=== PATIENT | male | born 1980 | race Hispanic/Latino ===

== ENCOUNTER 2020-12-19 08:26 | Day surgery (SDC) | payer MEDICARE ==
[2020-12-12 15:26] VITALS: BMI 31.2
[2020-12-19 08:21] LABS: #Basophils 0.1 thou/uL (0.0-0.2); #Eosinphils 0.6 thou/uL (0.0-0.7); #Lymphocytes 3.1 thou/uL (1.20-3.40); #Monocytes 0.9 thou/uL (0.11-0.59); #Neutrophils 7.2 thou/uL (1.40-6.50); %Basophils 0.7 % (0.0-1.0); %Lymphocytes 25.9 % (21.0-51.0); %Monocytes 7.4 % (0.0-10.0); %Neutrophils 61.1 % (42.0-75.0); Hemoglobin 14.6 g/dL (14.0-18.0); Mean Corpuscular HGB CONC 35.3 g/dL (32.0-36.0); Mean Corpuscular Hemoglobin 31.3 pg (27.0-31.0); Mean Corpuscular Volume 88.6 fL (78.0-98.0); Mean Platelet Volume 7.9 fL (7.4-10.4); Platelet Count 295 thou/uL (130-400); RBC Distribution Width 11.8 % (11.5-14.5); Red Blood Cell (RBC) Count 4.65 mill/uL (4.70-6.10); White Blood Cell (WBC) Count 11.8 thou/uL (4.8-10.8)
[2020-12-19 08:24] LABS: Follow-up Chemistry Comp? YES; Follow-up Hematology Comp? YES; Follow-up Result - Chemistry Y; Follow-up Result - Hematology Y
[2020-12-19 08:32] LABS: INR-International Normal Ratio 0.9; Prothrombin Time 11.7 sec (12.0-14.7)
[2020-12-19 08:33] LABS: PTT 29.1 sec (22.9-36.1)
[2020-12-19 09:39] VITALS: BP 161/98; TEMP 98
== END 2020-12-19 11:30 | disposition home or self-care (01) ==
LOC: CT 08:26
PROC: 0TB13ZX Excision of Left Kidney, Percutaneous Approach, Diagnostic (ICD-10-PCS; principal; 2020-12-19)
DX: I12.9 Hypertensive chronic kidney disease with stage 1 through stage 4 chronic kidney disease, or unspecified chronic kidney disease (principal); E11.22 Type 2 diabetes mellitus with diabetic chronic kidney disease; N18.32 Chronic kidney disease, stage 3b; I25.10 Atherosclerotic heart disease of native coronary artery without angina pectoris; Z86.73 Personal history of transient ischemic attack (TIA), and cerebral infarction without residual deficits; Z79.02 Long term (current) use of antithrombotics/antiplatelets; Z79.4 Long term (current) use of insulin; Z79.82 Long term (current) use of aspirin; Z79.899 Other long term (current) drug therapy; Z88.0 Allergy status to penicillin; Z88.1 Allergy status to other antibiotic agents; Z91.013 Allergy to seafood; Z91.041 Radiographic dye allergy status; Z95.5 Presence of coronary angioplasty implant and graft
CPT/HCPCS: 50200; 77012; 85025; 85610; 85730; 88329

== ENCOUNTER 2021-08-16 07:44 | Inpatient (IN) | payer MEDICARE ==
[2021-08-16 08:52] LABS: #Lymphocytes 1.9 thou/uL (1.20-3.40); #Monocytes 0.6 thou/uL (0.11-0.59); #Neutrophils 10.4 thou/uL (1.40-6.50); %Basophils 0.4 % (0.0-1.0); %Eosinophils 0.3 % (0.0-10.0); %Lymphocytes 14.4 % (21.0-51.0); %Monocytes 4.3 % (0.0-10.0); %Neutrophils 80.6 % (42.0-75.0); Mean Corpuscular HGB CONC 34.1 g/dL (32.0-36.0); Mean Corpuscular Hemoglobin 31.4 pg (27.0-31.0); Mean Platelet Volume 7.9 fL (7.4-10.4); Platelet Count 353 thou/uL (130-400); RBC Distribution Width 12.1 % (11.5-14.5); White Blood Cell (WBC) Count 12.9 thou/uL (4.8-10.8)
[2021-08-16] MEDS ORDERED: Pantoprazole 40 MG VIAL ONE (08:54)
[2021-08-16] MEDS ORDERED: Morphine 4 MG/ML VIAL ONE (08:54)
[2021-08-16] MEDS ORDERED: Ondansetron PF 4 MG/2 ML Vial ONE (08:54)
[2021-08-16 08:56] LABS: Bacteria/HPF None Seen HPF (None Seen); Bilirubin Negative (Negative); Blood, Urine 2+ (Negative); Clarity Clear (Clear); Glucose, Urine (Dipstick) Greater than 1000 mg/dL (Negative); Ketone, Urine 10 mg/dL (Negative); Leukocyte Negative Leu/uL (Negative); Nitrite Negative (Negative); Protein, Urine (Dipstick) 600 mg/dL (Neg-Trace); RBC/HPF 0-3 HPF (0-3); Specific Gravity, Urine 1.012 (1.002-1.036); Squamous Epithelial None Seen HPF (0-3); Urobilinogen Normal mg/dL (Less than 2); WBC/HPF 0-3 HPF (0-3); pH, Urine 6.5 (5.0-9.0)
[2021-08-16] MEDS ORDERED: diphenhydrAMINE 50 MG/ML VIAL ONE (09:06)
[2021-08-16] MEDS ORDERED: Metoclopramide HCl 10 MG/2 ML VIAL ONE (09:06)
[2021-08-16 09:12] LABS: ALT (SGPT) 13 U/L (8-55); AST (SGOT) 16 U/L (5-34); Albumin 2.8 g/dL (3.5-5.0); Alkaline Phosphatase 85 U/L (40-110); Anion Gap 15 mmol/L (10-20); BUN (Urea Nitrogen) 20 mg/dL (8.9-20.6); Bilirubin, Total 0.6 mg/dL (0.2-1.2); Calc. Creatinine Clearance 0 mL/min (70-130); Calcium 8.7 mg/dL (7.8-10.44); Carbon Dioxide 22 mmol/L (22-29); Chloride 98 mmol/L (98-107); Globulin 3.3 g/dL (2.4-3.5); Glucose 289 mg/dL (70-105); Lipase 84 U/L (8-78); Potassium 4.1 mmol/L (3.5-5.1); Protein, Total 6.1 g/dL (6.0-8.3); Prothrombin Time 12.8 sec (12.0-14.7); Sodium 131 mmol/L (136-145)
[2021-08-16 09:13] LABS: PTT 34.9 sec (22.9-36.1)
[2021-08-16] MEDS ORDERED: cefTRIAXone\\ROCEPHIN 2 GM VIAL ONE (11:55)
[2021-08-16] MEDS ORDERED: Haloperidol Lactate 5 MG/ML VIAL ONE (12:53)
[2021-08-16] MEDS ORDERED: Ondansetron ODT 4 MG TAB PO PRN (14:20)
[2021-08-16] MEDS ORDERED: Acetaminophen 325 MG TAB PO PRN (14:20)
[2021-08-16] MEDS ORDERED: Ondansetron PF 4 MG/2 ML Vial IVP PRN (14:20)
[2021-08-16] MEDS ORDERED: HumaLOG 300 UNITS/3 ML VIAL SC PRN (14:25)
[2021-08-16] MEDS ORDERED: Dextrose 5% in Water 1,000 ML IV PRN (14:25)
[2021-08-16] MEDS ORDERED: Dextrose 50% Abboject 50 ML SYRINGE SLOW IVP PRN (14:25)
[2021-08-16] MEDS ORDERED: Lorazepam 1 MG TAB PO PRN (14:26)
[2021-08-16] MEDS ORDERED: Sodium Chloride 0.9% 500 ML IV SCH (14:30)
[2021-08-16 16:25] LABS: Hemoglobin A1c 8.5 % (4.0-6.0)
[2021-08-16 16:27] LABS: Troponin I 0.018 ng/mL (< 0.028)
[2021-08-16] MEDS: hydrALAZINE 20 MG/ML VIAL SLOW IVP PRN ×2 (16:33→23:59)
[2021-08-16] MEDS: Sodium Chloride 0.9% 1,000 ML IV SCH (16:37)
[2021-08-16 16:49] VITALS: BMI 28.7
[2021-08-16] MEDS ORDERED: Promethazine HCl 12.5 MG in Sodium Chloride 0.9% 50 ML IVPB PRN (17:04)
[2021-08-16] MEDS: Morphine 4 MG/ML VIAL SLOW IVP PRN ×2 (17:07→21:00)
[2021-08-16 17:17] LABS: Amphetamine Not Detected (NotDetected); Barbiturates Screen Not Detected (NotDetected); Benzodiazepine Screen Not Detected (NotDetected); Cocaine Metabolite Screen Not Detected (NotDetected); Methadone Not Detected (NotDetected); Methamphetamine Not Detected (NotDetected); Opiate Screen Not Detected (NotDetected); Oxycodone Screen Not Detected (NotDetected); Phencyclidine (PCP) Not Detected (NotDetected); THC/Cannabinoid Screen Detected (NotDetected); Tricyclic Screen Not Detected (NotDetected)
[2021-08-16] MEDS: Metoclopramide HCl 10 MG/2 ML VIAL IVP SCH (20:32)
[2021-08-16] MEDS: Pantoprazole 40 MG VIAL IVP SCH (20:33)
[2021-08-16] MEDS ORDERED: Gabapentin 100 MG CAP PO PRN (21:59)
[2021-08-16] MEDS ORDERED: NIFEdipine XL 30 MG TAB PO SCH (22:15)
[2021-08-16] MEDS ORDERED: Propranolol 10 MG TAB PO SCH (22:15)
[2021-08-17 00:11] LABS: SARS-CoV-2 PCR by NAA Not Detected (NotDetected)
[2021-08-17] MEDS: Sodium Chloride 0.9% 1,000 ML IV SCH ×2 (04:38→14:16)
[2021-08-17] MEDS: hydrALAZINE 20 MG/ML VIAL SLOW IVP PRN ×2 (04:39→17:44)
[2021-08-17] MEDS: Morphine 4 MG/ML VIAL SLOW IVP PRN (04:40)
[2021-08-17 06:01] LABS: #Basophils 0.1 thou/uL (0.0-0.2); #Eosinphils 0.1 thou/uL (0.0-0.7); #Lymphocytes 2.5 thou/uL (1.20-3.40); #Monocytes 0.8 thou/uL (0.11-0.59); #Neutrophils 7.7 thou/uL (1.40-6.50); %Basophils 0.7 % (0.0-1.0); %Eosinophils 0.8 % (0.0-10.0); %Lymphocytes 22.5 % (21.0-51.0); %Monocytes 7.4 % (0.0-10.0); %Neutrophils 68.5 % (42.0-75.0); Hemoglobin 15.7 g/dL (14.0-18.0); Mean Corpuscular HGB CONC 34.6 g/dL (32.0-36.0); Mean Corpuscular Hemoglobin 31.8 pg (27.0-31.0); Mean Corpuscular Volume 92.1 fL (78.0-98.0); Mean Platelet Volume 7.5 fL (7.4-10.4); Platelet Count 277 thou/uL (130-400); Red Blood Cell (RBC) Count 4.93 mill/uL (4.70-6.10); White Blood Cell (WBC) Count 11.3 thou/uL (4.8-10.8)
[2021-08-17 06:24] LABS: ALT (SGPT) 9 U/L (8-55); AST (SGOT) 10 U/L (5-34); Albumin 2.4 g/dL (3.5-5.0); Alkaline Phosphatase 68 U/L (40-110); Anion Gap 14 mmol/L (10-20); BUN (Urea Nitrogen) 18 mg/dL (8.9-20.6); Bilirubin, Total 0.5 mg/dL (0.2-1.2); Calc. Creatinine Clearance 52 mL/min (70-130); Calcium 8.2 mg/dL (7.8-10.44); Carbon Dioxide 19 mmol/L (22-29); Chloride 104 mmol/L (98-107); Globulin 2.9 g/dL (2.4-3.5); Glucose 192 mg/dL (70-105); Potassium 3.7 mmol/L (3.5-5.1); Protein, Total 5.3 g/dL (6.0-8.3); Sodium 133 mmol/L (136-145)
[2021-08-17] MEDS: Metoclopramide HCl 10 MG/2 ML VIAL IVP SCH ×3 (06:32→20:48)
[2021-08-17] MEDS: Lorazepam 2 MG/ML VIAL SLOW IVP PRN (06:35)
[2021-08-17] MEDS: Fenofibrate 48 MG TAB PO SCH (07:58)
[2021-08-17] MEDS: Propranolol 10 MG TAB PO SCH (07:59)
[2021-08-17] MEDS: Ezetimibe 10 MG TAB PO SCH (08:00)
[2021-08-17] MEDS: Losartan 25 MG TAB PO SCH (08:00)
[2021-08-17] MEDS: Pantoprazole 40 MG VIAL IVP SCH ×2 (08:00→20:46)
[2021-08-17] MEDS: NIFEdipine XL 30 MG TAB PO SCH (08:00)
[2021-08-17] MEDS: Enoxaparin Sodium 40 MG/0.4 ML SYRINGE SC SCH (12:17)
[2021-08-17] MEDS ORDERED: Lidocaine 1% PF 5 ML VIAL ONE (12:52)
[2021-08-17] MEDS ORDERED: PROPOFOL 200 MG/20 ML VIAL ONE (12:52)
[2021-08-18] MEDS: Sodium Chloride 0.9% 1,000 ML IV SCH (02:35)
[2021-08-18] MEDS: Metoclopramide HCl 10 MG/2 ML VIAL IVP SCH (05:09)
[2021-08-18] MEDS: Lorazepam 2 MG/ML VIAL SLOW IVP PRN (05:24)
[2021-08-18] MEDS: Enoxaparin Sodium 40 MG/0.4 ML SYRINGE SC SCH (08:06)
[2021-08-18] MEDS: NIFEdipine XL 30 MG TAB PO SCH (08:06)
[2021-08-18] MEDS: Losartan 25 MG TAB PO SCH (08:06)
[2021-08-18] MEDS: Ezetimibe 10 MG TAB PO SCH (08:06)
[2021-08-18] MEDS: Pantoprazole 40 MG VIAL IVP SCH (08:07)
[2021-08-18] MEDS: Propranolol 10 MG TAB PO SCH (08:07)
[2021-08-18] MEDS: Fenofibrate 48 MG TAB PO SCH (08:08)
[2021-08-18] MEDS ORDERED: NIFEdipine XL 30 MG TAB PO SCH (09:00)
[2021-08-18 10:27] VITALS: BP 167/91; TEMP 97.7
== END 2021-08-18 10:35 | disposition home or self-care (01) | DRG 74 ==
LOC: ERS 07:44 → T4-B 14:28 → OBSVTOIN 08-18 10:02
PROVIDERS: ADMIT Internal Medicine; ATTEND Internal Medicine
PROC: 0DJ08ZZ Inspection of Upper Intestinal Tract, Via Natural or Artificial Opening Endoscopic (ICD-10-PCS; principal; 2021-08-17)
DX: E11.43 Type 2 diabetes mellitus with diabetic autonomic (poly)neuropathy (principal); N18.4 Chronic kidney disease, stage 4 (severe); E87.1 Hypo-osmolality and hyponatremia; K92.0 Hematemesis; K31.84 Gastroparesis; Z20.822 Contact with and (suspected) exposure to COVID-19; E11.22 Type 2 diabetes mellitus with diabetic chronic kidney disease; E11.42 Type 2 diabetes mellitus with diabetic polyneuropathy; R07.89 Other chest pain; I12.9 Hypertensive chronic kidney disease with stage 1 through stage 4 chronic kidney disease, or unspecified chronic kidney disease; E11.621 Type 2 diabetes mellitus with foot ulcer; L97.529 Non-pressure chronic ulcer of other part of left foot with unspecified severity; L97.519 Non-pressure chronic ulcer of other part of right foot with unspecified severity; I25.10 Atherosclerotic heart disease of native coronary artery without angina pectoris; E86.0 Dehydration; G89.4 Chronic pain syndrome; Z79.82 Long term (current) use of aspirin; Z79.891 Long term (current) use of opiate analgesic; Z79.4 Long term (current) use of insulin; Z89.412 Acquired absence of left great toe; Z86.16 Personal history of COVID-19; Z79.899 Other long term (current) drug therapy; Z91.041 Radiographic dye allergy status; Z88.8 Allergy status to other drugs, medicaments and biological substances; Z88.0 Allergy status to penicillin; Z88.1 Allergy status to other antibiotic agents; Z91.013 Allergy to seafood; Z95.5 Presence of coronary angioplasty implant and graft; Z86.73 Personal history of transient ischemic attack (TIA), and cerebral infarction without residual deficits; I25.2 Old myocardial infarction
CPT/HCPCS: 36415; 36416; 74176; 80053; 80306; 81003; 81015; 82274; 83036; 83605; 83690; 84484; 85025; 85610; 85730; 86850; 86900; 86901; 87040; 87086; 93005; 96365; 96372; 96375; 96376; C9113; G0378; J0360; J0696; J1200; J1630; J1650; J1815; J2060; J2270; J2405; J2704; J2765; J7030; J7050; U0003; U0005

== ENCOUNTER 2021-09-06 08:01 | Outpatient (CLI) | payer MEDICARE | END 2021-09-06 08:02 | disposition home or self-care (01) | LOC: NM 08:01 | PROVIDERS: ATTEND Physician Assistant Medical | DX: R11.2 Nausea with vomiting, unspecified (principal); E11.22 Type 2 diabetes mellitus with diabetic chronic kidney disease; N18.9 Chronic kidney disease, unspecified; F12.20 Cannabis dependence, uncomplicated | CPT/HCPCS: 78264; A9541 ==

== ENCOUNTER 2021-09-20 10:30 | Outpatient (CLI) | payer MEDICARE ==
[2021-09-20 21:02] LABS: SARS-CoV-2 PCR by NAA Not Detected (NotDetected)
== END 2021-09-20 10:31 | disposition home or self-care (01) ==
LOC: LABBT 10:30
PROVIDERS: ATTEND Physician Assistant Medical
DX: R11.2 Nausea with vomiting, unspecified (principal); Z20.822 Contact with and (suspected) exposure to COVID-19
CPT/HCPCS: U0003; U0005

== ENCOUNTER 2022-02-09 07:53 | Inpatient (IN) | payer MEDICARE ==
[2022-02-09] MEDS ORDERED: Dicyclomine 20 MG/2 ML VIAL ONE (08:15)
[2022-02-09] MEDS ORDERED: Famotidine/PF 20 mg/2ml Vial ONE (08:15)
[2022-02-09] MEDS ORDERED: Morphine 4 MG/ML VIAL ONE (08:15)
[2022-02-09 08:29] LABS: #Eosinphils 0.1 thou/uL (0.0-0.7); #Lymphocytes 2.1 thou/uL (1.20-3.40); #Monocytes 0.9 thou/uL (0.11-0.59); #Neutrophils 15.5 thou/uL (1.40-6.50); %Basophils 0.2 % (0.0-1.0); %Eosinophils 0.3 % (0.0-10.0); %Lymphocytes 11.5 % (21.0-51.0); %Monocytes 4.6 % (0.0-10.0); %Neutrophils 83.4 % (42.0-75.0); Hemoglobin 15.5 g/dL (14.0-18.0); Mean Corpuscular HGB CONC 35.9 g/dL (32.0-36.0); Mean Corpuscular Hemoglobin 31.7 pg (27.0-31.0); Mean Corpuscular Volume 88.5 fL (78.0-98.0); Mean Platelet Volume 7.7 fL (7.4-10.4); Platelet Count 344 thou/uL (130-400); RBC Distribution Width 11.9 % (11.5-14.5); Red Blood Cell (RBC) Count 4.88 mill/uL (4.70-6.10); White Blood Cell (WBC) Count 18.6 thou/uL (4.8-10.8)
[2022-02-09] MEDS ORDERED: Piperacillin/Tazobactam 4.5 GM VIAL ONE (08:47)
[2022-02-09 09:05] LABS: ALT (SGPT) 13 U/L (8-55); AST (SGOT) 16 U/L (5-34); Alkaline Phosphatase 99 U/L (40-110); Anion Gap 19 mmol/L (10-20); BUN (Urea Nitrogen) 26 mg/dL (8.9-20.6); Bilirubin, Total 0.7 mg/dL (0.2-1.2); Calc. Creatinine Clearance 0 mL/min (70-130); Calcium 8.6 mg/dL (7.8-10.44); Carbon Dioxide 20 mmol/L (22-29); Chloride 90 mmol/L (98-107); Estimated GFR 20; Globulin 3.4 g/dL (2.4-3.5); Glucose 160 mg/dL (70-105); Lipase 172 U/L (8-78); Potassium 3.2 mmol/L (3.5-5.1); Protein, Total 6.4 g/dL (6.0-8.3); Sodium 126 mmol/L (136-145)
[2022-02-09 09:09] LABS: CKMB 6.2 ng/mL (0-6.6)
[2022-02-09 09:16] LABS: Bacteria/HPF 1+ HPF (None Seen); Bilirubin Negative (Negative); Blood, Urine 1+ (Negative); Clarity Clear (Clear); Glucose, Urine (Dipstick) 200 mg/dL (Negative); Ketone, Urine Trace mg/dL (Negative); Leukocyte Negative Leu/uL (Negative); Nitrite Negative (Negative); Protein, Urine (Dipstick) 600 mg/dL (Neg-Trace); RBC/HPF 0-3 HPF (0-3); Specific Gravity, Urine 1.008 (1.002-1.036); Squamous Epithelial 0-3 HPF (0-3); Urobilinogen Normal mg/dL (Less than 2); WBC/HPF 0-3 HPF (0-3)
[2022-02-09] MEDS ORDERED: Haloperidol Lactate 5 MG/ML VIAL ONE (09:23)
[2022-02-09 09:27] LABS: Magnesium 2.1 mg/dL (1.6-2.6)
[2022-02-09] MEDS ORDERED: Potassium Chloride 20 MEQ TAB ONE (10:08)
[2022-02-09] MEDS ORDERED: Ondansetron ODT 4 MG TAB PO PRN (11:10)
[2022-02-09] MEDS ORDERED: Promethazine HCl 25 MG in Sodium Chloride 0.9% 50 ML IVPB PRN (11:10)
[2022-02-09] MEDS ORDERED: HumaLOG 300 UNITS/3 ML VIAL SC PRN ×2 (11:10)
[2022-02-09] MEDS ORDERED: Dextrose 5% in Water 1,000 ML IV PRN (11:10)
[2022-02-09] MEDS ORDERED: Dextrose 50% Abboject 50 ML SYRINGE SLOW IVP PRN (11:10)
[2022-02-09] MEDS ORDERED: Acetaminophen 325 MG TAB PO PRN (11:10)
[2022-02-09 11:48] LABS: Troponin I 0.026 ng/mL (< 0.028)
[2022-02-09] MEDS ORDERED: Metoclopramide HCl 10 MG/2 ML VIAL IVP SCH (12:00)
[2022-02-09] MEDS: Metoclopramide HCl 10 MG/2 ML VIAL IVP SCH ×2 (12:56→20:37)
[2022-02-09] MEDS: Sodium Chloride 0.9% 1,000 ML IV SCH (12:57)
[2022-02-09] MEDS ORDERED: hydrALAZINE 20 MG/ML VIAL SLOW IVP PRN (13:39)
[2022-02-09] MEDS ORDERED: Labetalol HCl 100 MG/20 ML VIAL SLOW IVP SCH (13:45)
[2022-02-09] MEDS: Labetalol HCl 100 MG/20 ML VIAL SLOW IVP PRN ×2 (13:48→20:37)
[2022-02-09 14:39] LABS: Troponin I 0.027 ng/mL (< 0.028)
[2022-02-09] MEDS: Lorazepam 1 MG TAB PO PRN (22:07)
[2022-02-10] MEDS: Metoclopramide HCl 10 MG/2 ML VIAL IVP SCH ×4 (01:17→19:50)
[2022-02-10] MEDS: Sodium Chloride 0.9% 1,000 ML IV SCH ×3 (04:15→18:30)
[2022-02-10 04:22] LABS: #Eosinphils 0.1 thou/uL (0.0-0.7); #Monocytes 0.8 thou/uL (0.11-0.59); #Neutrophils 6.9 thou/uL (1.40-6.50); %Basophils 0.5 % (0.0-1.0); %Eosinophils 1.1 % (0.0-10.0); %Monocytes 7.9 % (0.0-10.0); %Neutrophils 70.5 % (42.0-75.0); Hemoglobin 13.5 g/dL (14.0-18.0); Mean Corpuscular HGB CONC 35.5 g/dL (32.0-36.0); Mean Corpuscular Hemoglobin 32.2 pg (27.0-31.0); Mean Corpuscular Volume 90.8 fL (78.0-98.0); Mean Platelet Volume 7.7 fL (7.4-10.4); Platelet Count 247 thou/uL (130-400); Red Blood Cell (RBC) Count 4.18 mill/uL (4.70-6.10); White Blood Cell (WBC) Count 9.8 thou/uL (4.8-10.8)
[2022-02-10 04:34] LABS: Anion Gap 12 mmol/L (10-20); BUN (Urea Nitrogen) 24 mg/dL (8.9-20.6); Calc. Creatinine Clearance 36 mL/min (70-130); Calcium 7.9 mg/dL (7.8-10.44); Carbon Dioxide 20 mmol/L (22-29); Chloride 105 mmol/L (98-107); Estimated GFR 21; Glucose 107 mg/dL (70-105); Potassium 3.2 mmol/L (3.5-5.1); Sodium 134 mmol/L (136-145)
[2022-02-10] MEDS ORDERED: Lorazepam 1 MG TAB PO PRN (08:24)
[2022-02-10] MEDS: Potassium Chloride 20 MEQ in Premix Bag 1 BAG IVPB SCH ×2 (08:44→11:49)
[2022-02-10] MEDS: Labetalol HCl 100 MG/20 ML VIAL SLOW IVP PRN (08:45)
[2022-02-10] MEDS ORDERED: Aspirin 81 mg Enteric Coated Tablet PO SCH (09:00)
[2022-02-10] MEDS ORDERED: Ezetimibe 10 MG TAB PO SCH (09:00)
[2022-02-10] MEDS: Lorazepam 1 MG TAB PO PRN ×2 (11:49→19:53)
[2022-02-10] MEDS ORDERED: Losartan 25 MG TAB PO SCH (13:00)
[2022-02-10 14:45] VITALS: BMI 25.3
[2022-02-10 17:58] VITALS: TEMP 97.5
[2022-02-10] MEDS ORDERED: NIFEdipine XL 60 MG TAB PO SCH (18:15)
[2022-02-10 20:51] VITALS: BP 170/92
[2022-02-11] MEDS ORDERED: NIFEdipine XL 60 MG TAB PO SCH (09:00)
[2022-02-11] MEDS ORDERED: Losartan 25 MG TAB PO SCH (09:00)
== END 2022-02-10 20:40 | disposition home or self-care (01) | DRG 74 ==
LOC: ERS 07:53 → 2NO 12:40
PROVIDERS: ADMIT Internal Medicine; ATTEND Internal Medicine
DX: E11.43 Type 2 diabetes mellitus with diabetic autonomic (poly)neuropathy (principal); N18.4 Chronic kidney disease, stage 4 (severe); E87.1 Hypo-osmolality and hyponatremia; Z28.21 Immunization not carried out because of patient refusal; I25.10 Atherosclerotic heart disease of native coronary artery without angina pectoris; I12.9 Hypertensive chronic kidney disease with stage 1 through stage 4 chronic kidney disease, or unspecified chronic kidney disease; N18.30 Chronic kidney disease, stage 3 unspecified; K31.84 Gastroparesis; Z88.8 Allergy status to other drugs, medicaments and biological substances; Z88.3 Allergy status to other anti-infective agents; Z91.041 Radiographic dye allergy status; Z88.0 Allergy status to penicillin; Z91.013 Allergy to seafood; Z79.899 Other long term (current) drug therapy; Z79.82 Long term (current) use of aspirin; Z79.4 Long term (current) use of insulin; Z86.73 Personal history of transient ischemic attack (TIA), and cerebral infarction without residual deficits; Z95.5 Presence of coronary angioplasty implant and graft; Z83.3 Family history of diabetes mellitus; Z86.16 Personal history of COVID-19
CPT/HCPCS: 36415; 36416; 71045; 74176; 76705; 80048; 80053; 81003; 81015; 82553; 83605; 83690; 83735; 84484; 85025; 87040; 93005; 94760; 97139; J0360; J1630; J2270; J2543; J2550; J2765; J3480; J7050; S0028

== ENCOUNTER 2022-03-06 07:40 | Inpatient (IN) | payer MEDICARE ==
[2022-03-06 08:03] LABS: #Basophils 0.1 thou/uL (0.0-0.2); #Eosinphils 0.2 thou/uL (0.0-0.7); #Lymphocytes 1.8 thou/uL (1.20-3.40); #Monocytes 0.9 thou/uL (0.11-0.59); #Neutrophils 12.1 thou/uL (1.40-6.50); %Basophils 0.4 % (0.0-1.0); %Eosinophils 1.2 % (0.0-10.0); %Monocytes 5.9 % (0.0-10.0); %Neutrophils 80.4 % (42.0-75.0); Hemoglobin 14.3 g/dL (14.0-18.0); Mean Corpuscular HGB CONC 34.6 g/dL (32.0-36.0); Mean Corpuscular Hemoglobin 32.1 pg (27.0-31.0); Mean Platelet Volume 6.9 fL (7.4-10.4); Platelet Count 309 thou/uL (130-400); RBC Distribution Width 11.9 % (11.5-14.5); Red Blood Cell (RBC) Count 4.46 mill/uL (4.70-6.10); White Blood Cell (WBC) Count 15.1 thou/uL (4.8-10.8)
[2022-03-06 08:24] LABS: ALT (SGPT) 12 U/L (8-55); AST (SGOT) 11 U/L (5-34); Albumin 2.7 g/dL (3.5-5.0); Alkaline Phosphatase 102 U/L (40-110); Anion Gap 15 mmol/L (10-20); BUN (Urea Nitrogen) 34 mg/dL (8.9-20.6); Bilirubin, Total 0.3 mg/dL (0.2-1.2); Calc. Creatinine Clearance 0 mL/min (70-130); Calcium 7.8 mg/dL (7.8-10.44); Carbon Dioxide 18 mmol/L (22-29); Chloride 106 mmol/L (98-107); Estimated GFR 17; Globulin 2.4 g/dL (2.4-3.5); Glucose 140 mg/dL (70-105); Lipase 36 U/L (8-78); Protein, Total 5.1 g/dL (6.0-8.3); Sodium 135 mmol/L (136-145)
[2022-03-06] MEDS ORDERED: Haloperidol Lactate 5 MG/ML VIAL ONE (08:30)
[2022-03-06] MEDS ORDERED: Fentanyl 100 MCG/2 ML VIAL ONE (08:52)
[2022-03-06 09:27] LABS: Bacteria/HPF None Seen HPF (None Seen); Bilirubin Negative (Negative); Blood, Urine 1+ (Negative); Clarity Clear (Clear); Glucose, Urine (Dipstick) 150 mg/dL (Negative); Ketone, Urine Negative (Negative); Leukocyte Negative Leu/uL (Negative); Nitrite Negative (Negative); Protein, Urine (Dipstick) 600 mg/dL (Neg-Trace); RBC/HPF 0-3 HPF (0-3); Specific Gravity, Urine 1.009 (1.002-1.036); Squamous Epithelial 0-3 HPF (0-3); Urobilinogen Normal mg/dL (Less than 2); WBC/HPF 0-3 HPF (0-3); pH, Urine 6.5 (5.0-9.0)
[2022-03-06 11:09] LABS: Amphetamine Not Detected (NotDetected); Barbiturates Screen Not Detected (NotDetected); Benzodiazepine Screen Not Detected (NotDetected); Cocaine Metabolite Screen Not Detected (NotDetected); Methadone Not Detected (NotDetected); Methamphetamine Not Detected (NotDetected); Opiate Screen Not Detected (NotDetected); Oxycodone Screen Not Detected (NotDetected); Phencyclidine (PCP) Not Detected (NotDetected); THC/Cannabinoid Screen Detected (NotDetected); Tricyclic Screen Not Detected (NotDetected)
[2022-03-06] MEDS ORDERED: Lorazepam 2 MG/ML VIAL ONE (11:29)
[2022-03-06 11:50] LABS: SARS-CoV-2 NAA Rapid Test Not Detected (NotDetected)
[2022-03-06] MEDS ORDERED: Acetaminophen 325 MG TAB PO PRN (12:51)
[2022-03-06] MEDS ORDERED: hydrALAZINE 20 MG/ML VIAL SLOW IVP PRN (12:51)
[2022-03-06] MEDS ORDERED: Metoclopramide HCl 10 MG/2 ML VIAL IVP PRN (12:51)
[2022-03-06] MEDS ORDERED: cloNIDine 0.1 MG TAB ONE (13:25)
[2022-03-06] MEDS ORDERED: Furosemide 40 MG/4 ML VIAL ONE (13:26)
[2022-03-06] MEDS ORDERED: cloNIDine 0.2 MG TAB PO SCH (13:30)
[2022-03-06 14:20] VITALS: BMI 23.5
[2022-03-06 14:35] LABS: Hemoglobin A1c 5.4 % (4.0-6.0)
[2022-03-06] MEDS ORDERED: Ezetimibe 10 MG TAB PO SCH (15:00)
[2022-03-06] MEDS ORDERED: NIFEdipine XL 60 MG TAB PO SCH (15:00)
[2022-03-06] MEDS: Lorazepam 1 MG TAB PO SCH (18:46)
[2022-03-06] MEDS ORDERED: traZODone HCl 50 MG TAB PO SCH (21:00)
[2022-03-06] MEDS: Heparin 5,000 UNITS/ML VIAL SC SCH (21:27)
[2022-03-07 05:12] LABS: Troponin I 0.018 ng/mL (< 0.028)
[2022-03-07 05:19] LABS: #Eosinphils 0.1 thou/uL (0.0-0.7); #Lymphocytes 1.1 thou/uL (1.20-3.40); #Monocytes 0.5 thou/uL (0.11-0.59); #Neutrophils 5.5 thou/uL (1.40-6.50); %Basophils 0.4 % (0.0-1.0); %Eosinophils 1.4 % (0.0-10.0); %Lymphocytes 15.4 % (21.0-51.0); %Monocytes 7.4 % (0.0-10.0); %Neutrophils 75.5 % (42.0-75.0); Anion Gap 11 mmol/L (10-20); BUN (Urea Nitrogen) 30 mg/dL (8.9-20.6); Calc. Creatinine Clearance 30 mL/min (70-130); Calcium 8.2 mg/dL (7.8-10.44); Carbon Dioxide 21 mmol/L (22-29); Chloride 106 mmol/L (98-107); Estimated GFR 19; Glucose 112 mg/dL (70-105); Hemoglobin 13.4 g/dL (14.0-18.0); Mean Corpuscular HGB CONC 33.9 g/dL (32.0-36.0); Mean Corpuscular Hemoglobin 31.5 pg (27.0-31.0); Mean Corpuscular Volume 92.9 fL (78.0-98.0); Mean Platelet Volume 7.3 fL (7.4-10.4); Platelet Count 238 thou/uL (130-400); Potassium 3.7 mmol/L (3.5-5.1); RBC Distribution Width 11.9 % (11.5-14.5); Red Blood Cell (RBC) Count 4.27 mill/uL (4.70-6.10); Sodium 134 mmol/L (136-145); White Blood Cell (WBC) Count 7.2 thou/uL (4.8-10.8)
[2022-03-07] MEDS ORDERED: Ezetimibe 10 MG TAB PO SCH (09:00)
[2022-03-07] MEDS ORDERED: NIFEdipine XL 90 MG TAB PO SCH (09:00)
[2022-03-07] MEDS ORDERED: Prevnar 13-Val Conj/PF 0.5 ML SYRINGE IM ONE (09:00)
[2022-03-07] MEDS ORDERED: NIFEdipine XL 60 MG TAB PO SCH (09:00)
[2022-03-07] MEDS: Heparin 5,000 UNITS/ML VIAL SC SCH (12:04)
[2022-03-07 12:10] VITALS: TEMP 98.1
[2022-03-07 13:13] VITALS: BP 150/88
[2022-03-07] MEDS: Lorazepam 1 MG TAB PO SCH (13:36)
[2022-03-07] MEDS ORDERED: Non-Formulary Item 1 EACH (Losartan Potassium [Losartan Potassium] 100 MG Tablet) PO SCH (13:39)
[2022-03-07] MEDS ORDERED: DESVENLAFAXINE SUCCINATE 50 MG PO SCH (13:39)
[2022-03-07] MEDS ORDERED: Non-Formulary Item 1 EACH (Trazodone Hcl [Trazodone Hcl] 100 MG Tablet) PO SCH (21:00)
[2022-03-07] MEDS ORDERED: traZODone HCl 50 MG TAB PO SCH (21:00)
[2022-03-08] MEDS ORDERED: Venlafaxine HCl XR 75 MG CAP PO SCH (09:00)
[2022-03-08] MEDS ORDERED: Aspirin 81 mg Enteric Coated Tablet PO SCH (09:00)
[2022-03-08] MEDS ORDERED: Lorazepam 1 MG TAB PO SCH (09:00)
[2022-03-08] MEDS ORDERED: Losartan 25 MG TAB PO SCH (09:00)
[2022-03-08] MEDS ORDERED: Ezetimibe 10 MG TAB PO SCH (09:00)
[2022-03-08] MEDS ORDERED: Ergocalciferol 1.25 MG(50,000 UNITS) CAP PO SCH (09:00)
[2022-03-14] MEDS ORDERED: Ergocalciferol 1.25 MG(50,000 UNITS) CAP PO SCH (09:00)
== END 2022-03-07 15:14 | disposition home or self-care (01) | DRG 683 ==
LOC: SUATTDRO 07:40 → ERS 07:40 → 2SW 12:03 → OBSVTOIN 03-07 12:36
PROVIDERS: ADMIT Internal Medicine; ATTEND Internal Medicine
DX: N17.9 Acute kidney failure, unspecified (principal); E87.2 Acidosis; Z20.822 Contact with and (suspected) exposure to COVID-19; I25.10 Atherosclerotic heart disease of native coronary artery without angina pectoris; I12.9 Hypertensive chronic kidney disease with stage 1 through stage 4 chronic kidney disease, or unspecified chronic kidney disease; I16.0 Hypertensive urgency; F41.9 Anxiety disorder, unspecified; F32.A Depression, unspecified; D63.1 Anemia in chronic kidney disease; F43.10 Post-traumatic stress disorder, unspecified; N18.4 Chronic kidney disease, stage 4 (severe); E11.22 Type 2 diabetes mellitus with diabetic chronic kidney disease; Z28.21 Immunization not carried out because of patient refusal; Z95.5 Presence of coronary angioplasty implant and graft; Z86.73 Personal history of transient ischemic attack (TIA), and cerebral infarction without residual deficits; Z88.8 Allergy status to other drugs, medicaments and biological substances; Z88.1 Allergy status to other antibiotic agents; Z91.041 Radiographic dye allergy status; Z88.0 Allergy status to penicillin; Z91.013 Allergy to seafood; Z79.899 Other long term (current) drug therapy; Z79.82 Long term (current) use of aspirin; Z89.422 Acquired absence of other left toe(s); Z95.1 Presence of aortocoronary bypass graft
CPT/HCPCS: 36415; 71045; 76705; 78452; 80048; 80053; 80306; 81003; 81015; 83036; 83690; 84484; 85025; 93005; 93017; 93970; 94760; 96374; 96375; A9500; J1630; J1644; J1940; J2060; J2765; J3010; U0002

== ENCOUNTER 2023-06-20 16:04 | Inpatient (IN) | payer MEDICARE ==
[2023-06-20 16:40] LABS: #Eosinphils 0.1 thou/uL (0.0-0.7); #Neutrophils 7.5 thou/uL (1.40-6.50); %Basophils 0.3 % (0.0-1.0); %Eosinophils 1.2 % (0.0-10.0); %Lymphocytes 17.8 % (21.0-51.0); %Monocytes 9.2 % (0.0-10.0); Hematocrit 41.1 % (42.0-52.0); Hemoglobin 15.4 g/dL (14.0-18.0); Mean Corpuscular HGB CONC 37.5 g/dL (32.0-36.0); Mean Corpuscular Volume 82.9 fl (78.0-98.0); Mean Platelet Volume 8.7 fL (7.4-10.4); Platelet Count 334 10x3/uL (130-400); RBC Distribution Width 12.5 % (11.5-14.5); Red Blood Cell (RBC) Count 4.96 mill/uL (4.70-6.10); White Blood Cell (WBC) Count 10.5 10x3/uL (4.8-10.8)
[2023-06-20 17:02] LABS: ALT (SGPT) 17 U/L (8-55); AST (SGOT) 16 U/L (5-34); Albumin 3.9 g/dL (3.5-5.0); Alkaline Phosphatase 84 U/L (40-110); Anion Gap 25 mmol/L (10-20); BUN (Urea Nitrogen) 66 mg/dL (8.9-20.6); Bilirubin, Total 0.8 mg/dL (0.2-1.2); Calc. Creatinine Clearance 0 mL/min (70-130); Calcium 8.9 mg/dL (7.8-10.44); Carbon Dioxide 23 mmol/L (22-29); Chloride 76 mmol/L (98-107); Estimated GFR 4; Globulin 3.5 g/dL (2.4-3.5); Glucose 96 mg/dL (70-105); Protein, Total 7.4 g/dL (6.0-8.3); Sodium 122 mmol/L (136-145)
[2023-06-20 17:05] LABS: Troponin I 0.071 ng/mL (< 0.028)
[2023-06-20] MEDS ORDERED: HYDROcodone/Acetaminophen 10/325 mg Tablet ONE (17:23)
[2023-06-20 17:25] LABS: Potassium 2.4 mmol/L (3.5-5.1)
[2023-06-20] MEDS ORDERED: Potassium Chloride 20 MEQ TAB ONE (18:18)
[2023-06-20] MEDS ORDERED: Acetaminophen 325 MG TAB PO PRN (18:25)
[2023-06-20] MEDS ORDERED: Ondansetron PF 4 MG/2 ML Vial IVP PRN (18:25)
[2023-06-20] MEDS ORDERED: Ondansetron ODT 4 MG TAB PO PRN (18:25)
[2023-06-20] MEDS ORDERED: Acetaminophen 650 MG Suppository PR PRN (18:25)
[2023-06-20] MEDS ORDERED: Sodium Chloride 0.9% 1,000 ML IV SCH (18:45)
[2023-06-20] MEDS ORDERED: Lidocaine 4% Patch TD SCH (20:00)
[2023-06-20] MEDS ORDERED: [UNRECOGNIZED DRUG - REMARK] PO PRN (20:42)
[2023-06-20] MEDS ORDERED: Promethazine HCl 12.5 MG in Sodium Chloride 0.9% 50 ML IVPB PRN (20:43)
[2023-06-20] MEDS ORDERED: Promethazine 25 MG TAB ONE (21:02)
[2023-06-20] MEDS: Promethazine 25 MG TAB PO PRN (21:07)
[2023-06-20 21:36] LABS: Magnesium 2.2 mg/dL (1.6-2.6)
[2023-06-20 21:38] LABS: Lactic Acid 0.5 mmol/L (0.5-2.2); Troponin I 0.079 ng/mL (< 0.028)
[2023-06-20] MEDS ORDERED: Metoclopramide HCl 10 MG (2 mL) VIAL IVP PRN (22:29)
[2023-06-20] MEDS ORDERED: Metoclopramide HCl 10 MG (2 mL) VIAL IVP SCH (22:30)
[2023-06-20] MEDS ORDERED: diphenhydrAMINE 50 MG/ML VIAL IVP PRN (22:30)
[2023-06-20] MEDS ORDERED: Pantoprazole 40 MG VIAL IVP SCH (22:30)
[2023-06-20] MEDS ORDERED: RENALLY IVPB PRN (22:32)
[2023-06-20] MEDS ORDERED: Pantoprazole 40 MG VIAL ONE (22:58)
[2023-06-20] MEDS ORDERED: diphenhydrAMINE 50 MG/ML VIAL ONE (22:58)
[2023-06-20] MEDS ORDERED: Metoclopramide HCl 10 MG (2 mL) VIAL ONE (22:58)
[2023-06-20] MEDS ORDERED: Potassium Chloride 20 MEQ (100 mL) BAG ONE (22:59)
[2023-06-20] MEDS: diphenhydrAMINE 50 MG/ML VIAL IVP SCH ×2 (23:03→23:05)
[2023-06-20] MEDS ORDERED: Capsaicin 0.025% Cream 60 gm Tube TOP SCH (23:15)
[2023-06-20] MEDS: Potassium Chloride 20 MEQ in Premix 1 BAG IVPB SCH (23:16)
[2023-06-20] MEDS ORDERED: Potassium Chloride 20 MEQ TAB PO SCH (23:30)
[2023-06-21] MEDS ORDERED: Potassium Chloride 20 MEQ (100 mL) BAG ONE (01:31)
[2023-06-21] MEDS: Potassium Chloride 20 MEQ in Premix 1 BAG IVPB SCH (01:36)
[2023-06-21 04:33] LABS: #Eosinphils 0.2 thou/uL (0.0-0.7); #Neutrophils 4.9 thou/uL (1.40-6.50); %Basophils 0.5 % (0.0-1.0); %Eosinophils 2.4 % (0.0-10.0); %Lymphocytes 26.7 % (21.0-51.0); %Monocytes 11.8 % (0.0-10.0); %Neutrophils 58.4 % (42.0-75.0); Hematocrit 33.8 % (42.0-52.0); Hemoglobin 12.7 g/dL (14.0-18.0); Mean Corpuscular HGB CONC 37.6 g/dL (32.0-36.0); Mean Corpuscular Hemoglobin 31.3 pg (27.0-31.0); Mean Corpuscular Volume 83.3 fl (78.0-98.0); Mean Platelet Volume 8.7 fL (7.4-10.4); RBC Distribution Width 12.5 % (11.5-14.5); Red Blood Cell (RBC) Count 4.06 mill/uL (4.70-6.10); White Blood Cell (WBC) Count 8.5 10x3/uL (4.8-10.8)
[2023-06-21 05:04] LABS: Critical Call Chemistry NUR.FM15@0504; Phosphorus 10.3 mg/dL (2.3-4.7)
[2023-06-21 05:05] LABS: Anion Gap 21 mmol/L (10-20); BUN (Urea Nitrogen) 75 mg/dL (8.9-20.6); Calc. Creatinine Clearance 0 mL/min (70-130); Calcium 8.1 mg/dL (7.8-10.44); Carbon Dioxide 23 mmol/L (22-29); Chloride 79 mmol/L (98-107); Estimated GFR 4; Glucose 77 mg/dL (70-105); Magnesium 2.2 mg/dL (1.6-2.6); Sodium 120 mmol/L (136-145)
[2023-06-21] MEDS ORDERED: diphenhydrAMINE 50 MG/ML VIAL ONE (05:23)
[2023-06-21] MEDS ORDERED: Metoclopramide HCl 10 MG (2 mL) VIAL ONE (05:23)
[2023-06-21] MEDS: Metoclopramide HCl 10 MG (2 mL) VIAL IVP PRN (05:27)
[2023-06-21] MEDS ORDERED: Potassium Bicarbonate/Cit Ac 20 MEQ TAB PO SCH (05:30)
[2023-06-21 05:31] LABS: Platelet Count 287 10x3/uL (130-400)
[2023-06-21] MEDS ORDERED: Potassium Bicarbonate/Cit Ac 20 MEQ TAB ONE (06:41)
[2023-06-21] MEDS ORDERED: Pantoprazole 40 MG VIAL ONE (08:45)
[2023-06-21] MEDS: Venlafaxine XR 37.5 MG CAP PO SCH (10:30)
[2023-06-21] MEDS ORDERED: HYDROcodone/Acetaminophen 5/325 mg Tablet ONE (10:38)
[2023-06-21] MEDS: HYDROcodone/Acetaminophen 5/325 mg Tablet PO PRN (10:40)
[2023-06-21] MEDS ORDERED: Potassium Chloride 20 MEQ in Premix 1 BAG IVPB SCH (11:00)
[2023-06-21] MEDS: Transdermal Patch Removal TOP SCH (11:15)
[2023-06-21] MEDS: Capsaicin 0.025% Cream 60 gm Tube TOP SCH ×2 (11:15→22:18)
[2023-06-21 13:28] LABS: Anion Gap 22 mmol/L (10-20); BUN (Urea Nitrogen) 79 mg/dL (8.9-20.6); Calc. Creatinine Clearance 0 mL/min (70-130); Calcium 8.3 mg/dL (7.8-10.44); Carbon Dioxide 22 mmol/L (22-29); Chloride 81 mmol/L (98-107); Estimated GFR 4; Glucose 79 mg/dL (70-105); Potassium 3.1 mmol/L (3.5-5.1); Sodium 122 mmol/L (136-145)
[2023-06-21 19:45] VITALS: BMI 20.3
[2023-06-21] MEDS: Lidocaine 4% Patch TD SCH ×2 (21:19→22:18)
[2023-06-21] MEDS: Sodium Chloride 0.9% 1,000 ML IV SCH (21:19)
[2023-06-21] MEDS: Carvedilol 6.25 MG TAB PO SCH (21:19)
[2023-06-21] MEDS: hydrALAZINE 25 MG TAB PO SCH (21:20)
[2023-06-21] MEDS: Morphine 4 MG/ML VIAL SLOW IVP PRN (21:20)
[2023-06-21] MEDS: Promethazine 25 MG TAB PO SCH (21:20)
[2023-06-21] MEDS: Lorazepam 1 MG TAB PO SCH (21:20)
[2023-06-21] MEDS: Potassium Chloride 20 MEQ TAB PO SCH (22:18)
[2023-06-22] MEDS: hydrALAZINE 20 MG/ML VIAL SLOW IVP PRN ×3 (03:40→16:24)
[2023-06-22] MEDS: Morphine 4 MG/ML VIAL SLOW IVP PRN ×5 (03:44→23:23)
[2023-06-22] MEDS: Metoclopramide HCl 10 MG (2 mL) VIAL IVP PRN (03:45)
[2023-06-22] MEDS: Promethazine 25 MG TAB PO SCH ×2 (03:50→21:38)
[2023-06-22 05:16] LABS: Troponin I 0.065 ng/mL (< 0.028)
[2023-06-22] MEDS: Sodium Chloride 0.9% 1,000 ML IV SCH ×2 (07:43→16:25)
[2023-06-22] MEDS: Ezetimibe 10 MG TAB PO SCH (08:27)
[2023-06-22] MEDS: Folic Acid/Vit B Comp W-C PO SCH (08:27)
[2023-06-22] MEDS: Venlafaxine XR 37.5 MG CAP PO SCH (08:27)
[2023-06-22] MEDS: Cyclobenzaprine 10 MG TAB PO PRN (08:28)
[2023-06-22] MEDS: Aspirin 81 mg Enteric Coated Tablet PO SCH (08:28)
[2023-06-22] MEDS: Carvedilol 6.25 MG TAB PO SCH ×2 (08:30→21:38)
[2023-06-22] MEDS: NIFEdipine XL 90 MG ER.TAB PO SCH (08:30)
[2023-06-22] MEDS: hydrALAZINE 25 MG TAB PO SCH ×2 (08:30→21:38)
[2023-06-22] MEDS: Transdermal Patch Removal TOP SCH (08:31)
[2023-06-22] MEDS: Capsaicin 0.025% Cream 60 gm Tube TOP SCH ×3 (08:31→23:21)
[2023-06-22 11:59] LABS: Anion Gap 21 mmol/L (10-20); BUN (Urea Nitrogen) 68 mg/dL (8.9-20.6); Calc. Creatinine Clearance 7 mL/min (70-130); Carbon Dioxide 22 mmol/L (22-29); Chloride 86 mmol/L (98-107); Estimated GFR 4; Glucose 103 mg/dL (70-105); Potassium 3.1 mmol/L (3.5-5.1); Sodium 126 mmol/L (136-145)
[2023-06-22] MEDS: Promethazine 25 MG TAB PO PRN (12:27)
[2023-06-22] MEDS: Potassium Chloride 20 MEQ TAB PO SCH ×2 (16:25→21:39)
[2023-06-22] MEDS ORDERED: cloNIDine 0.1mg/24 Hour PATCH TD SCH (18:00)
[2023-06-22] MEDS: HYDROcodone/Acetaminophen 5/325 mg Tablet PO PRN (19:39)
[2023-06-22] MEDS: Lorazepam 1 MG TAB PO SCH (21:38)
[2023-06-22] MEDS: Senokot S 8.6-50 MG TAB PO SCH (21:39)
[2023-06-22] MEDS: Lidocaine 4% Patch TD SCH (23:21)
[2023-06-23] MEDS: HYDROcodone/Acetaminophen 5/325 mg Tablet PO PRN ×4 (01:37→23:22)
[2023-06-23] MEDS: Cyclobenzaprine 10 MG TAB PO PRN (01:38)
[2023-06-23] MEDS: hydrALAZINE 20 MG/ML VIAL SLOW IVP PRN (04:34)
[2023-06-23] MEDS: Sodium Chloride 0.9% 1,000 ML IV SCH (04:53)
[2023-06-23] MEDS: Morphine 4 MG/ML VIAL SLOW IVP PRN ×2 (06:44→20:29)
[2023-06-23] MEDS: NIFEdipine XL 90 MG ER.TAB PO SCH (06:44)
[2023-06-23 06:51] LABS: Anion Gap 16 mmol/L (10-20); BUN (Urea Nitrogen) 64 mg/dL (8.9-20.6); Calc. Creatinine Clearance 8 mL/min (70-130); Calcium 7.9 mg/dL (7.8-10.44); Carbon Dioxide 22 mmol/L (22-29); Chloride 88 mmol/L (98-107); Estimated GFR 5; Glucose 94 mg/dL (70-105); Magnesium 3.8 mg/dL (1.6-2.6); Potassium 3.3 mmol/L (3.5-5.1); Sodium 123 mmol/L (136-145)
[2023-06-23 06:54] LABS: Phosphorus 6.8 mg/dL (2.3-4.7)
[2023-06-23] MEDS: Carvedilol 6.25 MG TAB PO SCH ×2 (08:35→20:28)
[2023-06-23] MEDS: Venlafaxine XR 37.5 MG CAP PO SCH (08:36)
[2023-06-23] MEDS: hydrALAZINE 25 MG TAB PO SCH ×4 (08:36→21:52)
[2023-06-23] MEDS: Ezetimibe 10 MG TAB PO SCH (08:36)
[2023-06-23] MEDS: Aspirin 81 mg Enteric Coated Tablet PO SCH (08:36)
[2023-06-23] MEDS: Promethazine 25 MG TAB PO SCH ×5 (08:36→23:21)
[2023-06-23] MEDS: Folic Acid/Vit B Comp W-C PO SCH (08:36)
[2023-06-23] MEDS: Senokot S 8.6-50 MG TAB PO SCH ×2 (08:37→20:29)
[2023-06-23] MEDS: Transdermal Patch Removal TOP SCH (12:28)
[2023-06-23] MEDS: Capsaicin 0.025% Cream 60 gm Tube TOP SCH ×3 (12:28→20:28)
[2023-06-23] MEDS ORDERED: Potassium Chloride 20 MEQ TAB PO SCH (17:00)
[2023-06-23] MEDS: Lidocaine 4% Patch TD SCH (20:28)
[2023-06-23] MEDS ORDERED: traZODone HCl 50 MG TAB PO SCH (21:00)
[2023-06-23] MEDS: Lorazepam 1 MG TAB PO SCH (21:53)
[2023-06-24 06:26] LABS: Anion Gap 14 mmol/L (10-20); BUN (Urea Nitrogen) 57 mg/dL (8.9-20.6); Calc. Creatinine Clearance 9 mL/min (70-130); Calcium 7.7 mg/dL (7.8-10.44); Carbon Dioxide 24 mmol/L (22-29); Chloride 90 mmol/L (98-107); Estimated GFR 5; Glucose 102 mg/dL (70-105); Potassium 3.8 mmol/L (3.5-5.1); Sodium 124 mmol/L (136-145)
[2023-06-24] MEDS: Promethazine 25 MG TAB PO SCH ×3 (07:51→17:23)
[2023-06-24] MEDS: NIFEdipine XL 90 MG ER.TAB PO SCH (08:50)
[2023-06-24] MEDS: Ezetimibe 10 MG TAB PO SCH (08:51)
[2023-06-24] MEDS: Folic Acid/Vit B Comp W-C PO SCH (08:51)
[2023-06-24] MEDS: Aspirin 81 mg Enteric Coated Tablet PO SCH (08:51)
[2023-06-24] MEDS: Senokot S 8.6-50 MG TAB PO SCH ×2 (08:51→21:11)
[2023-06-24] MEDS: Carvedilol 6.25 MG TAB PO SCH ×2 (08:51→21:11)
[2023-06-24] MEDS: hydrALAZINE 25 MG TAB PO SCH ×4 (08:51→21:10)
[2023-06-24] MEDS: Venlafaxine XR 37.5 MG CAP PO SCH ×2 (08:51→21:11)
[2023-06-24] MEDS: Transdermal Patch Removal TOP SCH (08:52)
[2023-06-24] MEDS: Capsaicin 0.025% Cream 60 gm Tube TOP SCH ×3 (08:52→21:14)
[2023-06-24] MEDS: Morphine 4 MG/ML VIAL SLOW IVP PRN ×3 (08:58→21:32)
[2023-06-24] MEDS ORDERED: Promethazine 25 MG TAB PO SCH (09:15)
[2023-06-24] MEDS: HYDROcodone/Acetaminophen 5/325 mg Tablet PO PRN ×2 (12:20→16:17)
[2023-06-24] MEDS: Cyclobenzaprine 10 MG TAB PO PRN (17:27)
[2023-06-24] MEDS: Lidocaine 4% Patch TD SCH (21:10)
[2023-06-24] MEDS: Lorazepam 1 MG TAB PO SCH (21:11)
[2023-06-25] MEDS: Promethazine 25 MG TAB PO SCH ×3 (00:34→11:40)
[2023-06-25] MEDS: HYDROcodone/Acetaminophen 5/325 mg Tablet PO PRN ×3 (00:37→11:40)
[2023-06-25] MEDS: Morphine 4 MG/ML VIAL SLOW IVP PRN ×2 (01:58→08:49)
[2023-06-25] MEDS: Cyclobenzaprine 10 MG TAB PO PRN (02:28)
[2023-06-25 05:01] VITALS: TEMP 98.2
[2023-06-25 07:47] LABS: Anion Gap 14 mmol/L (10-20); BUN (Urea Nitrogen) 56 mg/dL (8.9-20.6); Calc. Creatinine Clearance 9 mL/min (70-130); Calcium 7.2 mg/dL (7.8-10.44); Carbon Dioxide 24 mmol/L (22-29); Chloride 90 mmol/L (98-107); Estimated GFR 5; Glucose 78 mg/dL (70-105); Potassium 3.6 mmol/L (3.5-5.1); Sodium 124 mmol/L (136-145)
[2023-06-25] MEDS: Senokot S 8.6-50 MG TAB PO SCH (08:47)
[2023-06-25] MEDS: Carvedilol 6.25 MG TAB PO SCH (08:47)
[2023-06-25] MEDS: hydrALAZINE 25 MG TAB PO SCH ×2 (08:47→11:40)
[2023-06-25] MEDS: Venlafaxine XR 37.5 MG CAP PO SCH (08:48)
[2023-06-25] MEDS: NIFEdipine XL 90 MG ER.TAB PO SCH (08:48)
[2023-06-25] MEDS: Ezetimibe 10 MG TAB PO SCH (08:48)
[2023-06-25] MEDS: Folic Acid/Vit B Comp W-C PO SCH (08:49)
[2023-06-25] MEDS: Aspirin 81 mg Enteric Coated Tablet PO SCH (08:49)
[2023-06-25] MEDS: Transdermal Patch Removal TOP SCH ×2 (08:54→08:56)
[2023-06-25] MEDS: Capsaicin 0.025% Cream 60 gm Tube TOP SCH (08:56)
[2023-06-25 11:41] VITALS: BP 154/84
== END 2023-06-25 14:19 | disposition home health service (06) | DRG 640 ==
LOC: ERS 16:04 → ERHOLD 19:28 → 2NO 06-21 12:36 → T4-B 06-24 14:17
PROVIDERS: ADMIT Internal Medicine; ATTEND Emergency Medicine
DX: E87.6 Hypokalemia (principal); N18.6 End stage renal disease; I12.0 Hypertensive chronic kidney disease with stage 5 chronic kidney disease or end stage renal disease; R11.2 Nausea with vomiting, unspecified; E87.1 Hypo-osmolality and hyponatremia; F12.90 Cannabis use, unspecified, uncomplicated; I25.10 Atherosclerotic heart disease of native coronary artery without angina pectoris; Z99.2 Dependence on renal dialysis; M54.50 Low back pain, unspecified; F41.9 Anxiety disorder, unspecified; F32.A Depression, unspecified; Z88.8 Allergy status to other drugs, medicaments and biological substances; Z91.041 Radiographic dye allergy status; Z88.0 Allergy status to penicillin; Z88.1 Allergy status to other antibiotic agents; Z79.82 Long term (current) use of aspirin; Z79.899 Other long term (current) drug therapy; E11.40 Type 2 diabetes mellitus with diabetic neuropathy, unspecified; Z98.890 Other specified postprocedural states; Z83.3 Family history of diabetes mellitus; I25.2 Old myocardial infarction; K59.00 Constipation, unspecified; E83.39 Other disorders of phosphorus metabolism; D63.1 Anemia in chronic kidney disease
CPT/HCPCS: 36415; 36416; 71045; 72146; 72148; 80048; 80053; 83605; 83735; 83880; 84100; 84484; 85025; 90945; 93005; 97139; C9113; G0257; J0360; J1200; J2270; J2765; J3480; J7050; Q0169

== ENCOUNTER 2023-09-02 10:30 | Inpatient (IN) | payer MEDICARE ==
[2023-09-02 11:15] LABS: #Eosinphils 0.3 thou/uL (0.0-0.7); #Monocytes 0.9 thou/uL (0.11-0.59); #Neutrophils 14.9 thou/uL (1.40-6.50); %Basophils 0.2 % (0.0-1.0); %Eosinophils 1.6 % (0.0-10.0); %Lymphocytes 8.3 % (21.0-51.0); %Monocytes 5.1 % (0.0-10.0); %Neutrophils 82.9 % (42.0-75.0); Hematocrit 22.7 % (42.0-52.0); Hemoglobin 8.1 g/dL (14.0-18.0); Mean Corpuscular HGB CONC 35.7 g/dL (32.0-36.0); Mean Corpuscular Hemoglobin 32.9 pg (27.0-31.0); Mean Corpuscular Volume 92.3 fl (78.0-98.0); Mean Platelet Volume 8.5 fL (7.4-10.4); Platelet Count 294 10x3/uL (130-400); RBC Distribution Width 13.2 % (11.5-14.5); Red Blood Cell (RBC) Count 2.46 mill/uL (4.70-6.10)
[2023-09-02 11:38] LABS: ALT (SGPT) 17 U/L (8-55); AST (SGOT) 22 U/L (5-34); Albumin 3.6 g/dL (3.5-5.0); Alkaline Phosphatase 98 U/L (40-110); Anion Gap 20 mmol/L (10-20); BUN (Urea Nitrogen) 72 mg/dL (8.9-20.6); Bilirubin, Total 0.8 mg/dL (0.2-1.2); Calc. Creatinine Clearance 0 mL/min (70-130); Calcium 8.9 mg/dL (7.8-10.44); Carbon Dioxide 22 mmol/L (22-29); Chloride 86 mmol/L (98-107); Estimated GFR 5; Globulin 3.1 g/dL (2.4-3.5); Glucose 138 mg/dL (70-105); Lipase 124 U/L (8-78); Potassium 3.5 mmol/L (3.5-5.1); Protein, Total 6.7 g/dL (6.0-8.3); Sodium 124 mmol/L (136-145)
[2023-09-02 11:40] LABS: Troponin I 0.128 ng/mL (< 0.028)
[2023-09-02] MEDS ORDERED: Acetaminophen 500 MG TAB ONE (12:01)
[2023-09-02] MEDS ORDERED: diphenhydrAMINE 50 MG/ML VIAL ONE (12:01)
[2023-09-02] MEDS ORDERED: hydrALAZINE 20 MG/ML VIAL ONE (12:02)
[2023-09-02] MEDS ORDERED: Metoclopramide HCl 10 MG (2 mL) VIAL ONE (12:02)
[2023-09-02] MEDS ORDERED: Sodium Chloride 0.9% 100 ML ONE (12:03)
[2023-09-02] MEDS ORDERED: Cefepime 2 GM VIAL ONE (12:03)
[2023-09-02] MEDS: Metoclopramide HCl 10 MG (2 mL) VIAL IVP SCH (12:20)
[2023-09-02] MEDS ORDERED: Morphine 4 MG/ML VIAL ONE ×2 (12:22→16:24)
[2023-09-02] MEDS: Morphine 4 MG/ML VIAL SLOW IVP SCH (12:33)
[2023-09-02] MEDS: Clindamycin/D5W 900 MG in Premix 1 BAG IVPB SCH (13:55)
[2023-09-02 14:23] LABS: Bacteria/HPF 2+ HPF (None Seen); Bilirubin Negative (Negative); Blood, Urine Trace (Negative); CAUTI Indications for Culture Dysuria,urgency,freq; Clarity Clear (Clear); Glucose, Urine (Dipstick) 70 mg/dL (Negative); Ketone, Urine Negative (Negative); Leukocyte Negative Leu/uL (Negative); Nitrite Negative (Negative); Protein, Urine (Dipstick) 300 mg/dL (Neg-Trace); RBC/HPF 0-3 HPF (0-3); Specific Gravity, Urine 1.009 (1.002-1.036); Squamous Epithelial 0-3 HPF (0-3); Urobilinogen Normal mg/dL (Less than 2)
[2023-09-02 14:25] LABS: Urine Culture Reflex No No
[2023-09-02] MEDS ORDERED: Acetaminophen 325 MG TAB PO PRN (15:01)
[2023-09-02 15:09] LABS: Critical Call Chem Troponin I NUR.KKC1@1508; Troponin I 0.237 ng/mL (< 0.028)
[2023-09-02] MEDS ORDERED: Pantoprazole 40 MG VIAL ONE (16:24)
[2023-09-02] MEDS: Pantoprazole 40 MG VIAL IVP SCH (16:30)
[2023-09-02] MEDS: Morphine 4 MG/ML VIAL SLOW IVP PRN (16:38)
[2023-09-02] MEDS: cloNIDine 0.2mg/24 Hour PATCH TD SCH (16:39)
[2023-09-02] MEDS: Promethazine HCl 12.5 MG in Sodium Chloride 0.9% 50 ML IVPB PRN (17:00)
[2023-09-02 20:13] LABS: Anion Gap 19 mmol/L (10-20); BUN (Urea Nitrogen) 80 mg/dL (8.9-20.6); Calc. Creatinine Clearance 10 mL/min (70-130); Calcium 8.4 mg/dL (7.8-10.44); Carbon Dioxide 21 mmol/L (22-29); Chloride 85 mmol/L (98-107); Estimated GFR 5; Glucose 102 mg/dL (70-105); Phosphorus 6.9 mg/dL (2.3-4.7); Potassium 3.2 mmol/L (3.5-5.1); Sodium 122 mmol/L (136-145)
[2023-09-02 20:29] LABS: Critical Call Chem Troponin I NUR..AL5@2028; Troponin I 0.459 ng/mL (< 0.028)
[2023-09-02] MEDS: Nitroglycerin 2% Ointment 1 INCH/1 GM Packet TOP SCH ×2 (21:13→23:38)
[2023-09-02] MEDS ORDERED: Nitroglycerin 2% Ointment 1 INCH/1 GM Packet TOP SCH ×2 (22:00)
[2023-09-02 23:12] LABS: Hematocrit 21.3 % (42.0-52.0); Hemoglobin 7.8 g/dL (14.0-18.0)
[2023-09-02 23:22] LABS: INR-International Normal Ratio 1.1; Prothrombin Time 13.7 sec (12.0-14.7)
[2023-09-02 23:23] LABS: PTT 31.1 sec (22.9-36.1)
[2023-09-02 23:31] LABS: Troponin I 0.582 ng/mL (< 0.028)
[2023-09-02] MEDS: HYDROcodone/Acetaminophen 5/325 mg Tablet PO PRN (23:35)
[2023-09-02] MEDS: Potassium Chloride 20 MEQ TAB PO SCH (23:35)
[2023-09-02] MEDS: hydrALAZINE 25 MG TAB PO SCH (23:39)
[2023-09-02] MEDS: Losartan 25 MG TAB PO SCH (23:39)
[2023-09-02] MEDS: Carvedilol 6.25 MG TAB PO SCH (23:41)
[2023-09-02] MEDS: Lidocaine 4% Patch TD SCH (23:42)
[2023-09-02] MEDS: Clindamycin/D5W 600 MG in Premix 1 BAG IVPB SCH (23:43)
[2023-09-02] MEDS: Heparin 5,000 UNITS/ML VIAL SC SCH (23:52)
[2023-09-03] MEDS: Heparin 25,000 units/D5W 500 ML IVPB SCH (01:21)
[2023-09-03] MEDS: Heparin 10,000 UNITS/ 10 ML VIAL SLOW IVP SCH (01:25)
[2023-09-03] MEDS: Lidocaine 4% Patch TD SCH (02:23)
[2023-09-03 02:33] LABS: #Basophils 0.1 thou/uL (0.0-0.2); #Eosinphils 0.2 thou/uL (0.0-0.7); #Monocytes 0.9 thou/uL (0.11-0.59); #Neutrophils 10.8 thou/uL (1.40-6.50); %Basophils 0.4 % (0.0-1.0); %Eosinophils 1.7 % (0.0-10.0); %Lymphocytes 13.7 % (21.0-51.0); %Monocytes 6.6 % (0.0-10.0); %Neutrophils 76.2 % (42.0-75.0); Hematocrit 21.7 % (42.0-52.0); Hemoglobin 7.9 g/dL (14.0-18.0); Mean Corpuscular HGB CONC 36.4 g/dL (32.0-36.0); Mean Corpuscular Hemoglobin 32.6 pg (27.0-31.0); Mean Corpuscular Volume 89.7 fl (78.0-98.0); Mean Platelet Volume 8.6 fL (7.4-10.4); Platelet Count 276 10x3/uL (130-400); Red Blood Cell (RBC) Count 2.42 mill/uL (4.70-6.10); White Blood Cell (WBC) Count 14.1 10x3/uL (4.8-10.8)
[2023-09-03 02:49] LABS: Anion Gap 17 mmol/L (10-20); BUN (Urea Nitrogen) 77 mg/dL (8.9-20.6); Calc. Creatinine Clearance 11 mL/min (70-130); Calcium 8.6 mg/dL (7.8-10.44); Carbon Dioxide 25 mmol/L (22-29); Chloride 88 mmol/L (98-107); Estimated GFR 5; Glucose 107 mg/dL (70-105); Magnesium 2.7 mg/dL (1.6-2.6); Potassium 3.2 mmol/L (3.5-5.1); Sodium 127 mmol/L (136-145)
[2023-09-03 02:53] LABS: PTT 152.1 sec (22.9-36.1)
[2023-09-03 03:08] LABS: Critical Call Chem Troponin I NUR.AL5@0308; Troponin I 0.634 ng/mL (< 0.028)
[2023-09-03] MEDS: Transdermal Patch Removal TOP SCH (06:25)
[2023-09-03] MEDS: Potassium Bicarbonate/Cit Ac 20 MEQ TAB PO SCH (07:07)
[2023-09-03] MEDS: Losartan 25 MG TAB PO SCH (08:12)
[2023-09-03] MEDS: cloNIDine 0.1 MG TAB PO SCH (08:12)
[2023-09-03] MEDS: Ezetimibe 10 MG TAB PO SCH (08:12)
[2023-09-03] MEDS: Aspirin 81 mg Enteric Coated Tablet PO SCH (08:12)
[2023-09-03] MEDS: NIFEdipine XL 90 MG ER.TAB PO SCH (08:13)
[2023-09-03] MEDS: Venlafaxine HCl XR 150 MG CAP PO SCH (08:13)
[2023-09-03] MEDS: Pantoprazole 40 MG VIAL IVP SCH (08:13)
[2023-09-03] MEDS ORDERED: Epoetin (ESRD) 10,000 UNITS/ML VIAL SC SCH (10:15)
[2023-09-03] MEDS: Cefepime 1 GM in Sodium Chloride 0.9% 100 ML IVPB SCH (12:28)
[2023-09-03] MEDS: EPOETIN ALFA-EPBX (ESRD) 10,000 UNITS/ML VIAL SC SCH (17:29)
[2023-09-03] MEDS: predniSONE 50 MG TAB PO SCH (21:09)
[2023-09-04 05:23] LABS: Anion Gap 19 mmol/L (10-20); BUN (Urea Nitrogen) 72 mg/dL (8.9-20.6); Calc. Creatinine Clearance 10 mL/min (70-130); Calcium 8.5 mg/dL (7.8-10.44); Carbon Dioxide 23 mmol/L (22-29); Chloride 88 mmol/L (98-107); Estimated GFR 5; Glucose 157 mg/dL (70-105); Potassium 3.4 mmol/L (3.5-5.1); Sodium 127 mmol/L (136-145)
[2023-09-04 05:28] LABS: #Eosinphils Less than 0.0 thou/uL (0.0-0.7); #Monocytes 0.3 thou/uL (0.11-0.59); %Basophils 0.3 % (0.0-1.0); %Eosinophils 0.1 % (0.0-10.0); %Lymphocytes 5.9 % (21.0-51.0); %Monocytes 3.1 % (0.0-10.0); %Neutrophils 88.8 % (42.0-75.0); Hematocrit 23.9 % (42.0-52.0); Hemoglobin 8.6 g/dL (14.0-18.0); Mean Corpuscular Hemoglobin 32.7 pg (27.0-31.0); Mean Corpuscular Volume 90.9 fl (78.0-98.0); Mean Platelet Volume 8.9 fL (7.4-10.4); Platelet Count 267 10x3/uL (130-400); RBC Distribution Width 13.2 % (11.5-14.5); Red Blood Cell (RBC) Count 2.63 mill/uL (4.70-6.10)
[2023-09-04] MEDS: Sevelamer Carbonate 800 MG TAB PO SCH (17:55)
[2023-09-05 05:34] LABS: #Basophils Less than 0.03 10x3/uL (0.0-0.2); #Eosinphils Less than 0.03 10x3/uL (0.0-0.7); %Basophils 0.1 % (0.0-1.0); %Lymphocytes 4.5 % (21.0-51.0); %Neutrophils 89.5 % (42.0-75.0); Hematocrit 22.8 % (42.0-52.0); Mean Corpuscular HGB CONC 35.1 g/dL (32.0-36.0); Mean Corpuscular Hemoglobin 32.8 pg (27.0-31.0); Mean Corpuscular Volume 93.4 fL (78.0-98.0); Mean Platelet Volume 8.8 fL (7.4-10.4); Platelet Count 236 10x3/uL (130-400); RBC Distribution Width 13.3 % (11.5-14.5); Red Blood Cell (RBC) Count 2.44 mill/uL (4.70-6.10)
[2023-09-05 05:59] LABS: Anion Gap 19 mmol/L (10-20); BUN (Urea Nitrogen) 67 mg/dL (8.9-20.6); Calc. Creatinine Clearance 10 mL/min (70-130); Calcium 8.3 mg/dL (7.8-10.44); Carbon Dioxide 21 mmol/L (22-29); Chloride 87 mmol/L (98-107); Estimated GFR 5; Glucose 161 mg/dL (70-105); Potassium 3.4 mmol/L (3.5-5.1); Sodium 124 mmol/L (136-145)
[2023-09-05 07:48] LABS: PTT 161.3 sec (22.9-36.1)
[2023-09-05] MEDS: diphenhydrAMINE 50 MG/ML VIAL IVP SCH (09:51)
[2023-09-05] MEDS: Famotidine/PF 20 mg/2ml Vial SLOW IVP SCH (09:51)
[2023-09-05] MEDS ORDERED: Iopamidol-370 76% 500 ML MDV (1 ML CHARGE) ONE (13:28)
[2023-09-05] MEDS: Linezolid 600 MG TAB PO SCH (20:08)
[2023-09-06 04:40] LABS: #Basophils Less than 0.03 10x3/uL (0.0-0.2); #Eosinphils Less than 0.03 10x3/uL (0.0-0.7); %Basophils 0.1 % (0.0-1.0); %Lymphocytes 3.8 % (21.0-51.0); %Monocytes 6.2 % (0.0-10.0); Hematocrit 22.1 % (42.0-52.0); Mean Corpuscular HGB CONC 36.2 g/dL (32.0-36.0); Mean Corpuscular Hemoglobin 33.6 pg (27.0-31.0); Mean Corpuscular Volume 92.9 fL (78.0-98.0); Mean Platelet Volume 9.3 fL (7.4-10.4); Platelet Count 223 10x3/uL (130-400); RBC Distribution Width 13.5 % (11.5-14.5); Red Blood Cell (RBC) Count 2.38 mill/uL (4.70-6.10)
[2023-09-06 04:59] LABS: Anion Gap 19 mmol/L (10-20); BUN (Urea Nitrogen) 65 mg/dL (8.9-20.6); Calc. Creatinine Clearance 11 mL/min (70-130); Calcium 8.1 mg/dL (7.8-10.44); Carbon Dioxide 21 mmol/L (22-29); Chloride 86 mmol/L (98-107); Estimated GFR 5; Glucose 169 mg/dL (70-105); Potassium 3.4 mmol/L (3.5-5.1); Sodium 123 mmol/L (136-145)
[2023-09-06] MEDS ORDERED: Calcitonin,Salmon,Synthetic 200 Units NASAL PUMP 3.7 ML R NARE SCH (09:00)
[2023-09-06 11:45] LABS: Anion Gap 21 mmol/L (10-20); BUN (Urea Nitrogen) 63 mg/dL (8.9-20.6); Calc. Creatinine Clearance 11 mL/min (70-130); Calcium 8.1 mg/dL (7.8-10.44); Carbon Dioxide 23 mmol/L (22-29); Chloride 86 mmol/L (98-107); Estimated GFR 6; Glucose 114 mg/dL (70-105); Potassium 3.6 mmol/L (3.5-5.1); Sodium 126 mmol/L (136-145)
[2023-09-06] MEDS ORDERED: Metoclopramide HCl 10 MG (2 mL) VIAL IVP PRN (14:35)
[2023-09-06] MEDS: Lorazepam 2 MG/ML VIAL SLOW IVP PRN (20:41)
[2023-09-07 05:51] LABS: #Basophils Less than 0.03 10x3/uL (0.0-0.2); #Eosinphils Less than 0.03 10x3/uL (0.0-0.7); %Basophils 0.1 % (0.0-1.0); %Lymphocytes 5.4 % (21.0-51.0); %Monocytes 6.2 % (0.0-10.0); %Neutrophils 85.3 % (42.0-75.0); Hematocrit 27.3 % (42.0-52.0); Hemoglobin 9.6 g/dL (14.0-18.0); Mean Corpuscular HGB CONC 35.2 g/dL (32.0-36.0); Mean Corpuscular Hemoglobin 33.4 pg (27.0-31.0); Mean Corpuscular Volume 95.1 fL (78.0-98.0); Mean Platelet Volume 9.2 fL (7.4-10.4); Platelet Count 271 10x3/uL (130-400); RBC Distribution Width 13.6 % (11.5-14.5); Red Blood Cell (RBC) Count 2.87 mill/uL (4.70-6.10)
[2023-09-07 06:13] LABS: Anion Gap 23 mmol/L (10-20); BUN (Urea Nitrogen) 59 mg/dL (8.9-20.6); Calc. Creatinine Clearance 11 mL/min (70-130); Calcium 8.6 mg/dL (7.8-10.44); Carbon Dioxide 23 mmol/L (22-29); Chloride 86 mmol/L (98-107); Estimated GFR 6; Glucose 140 mg/dL (70-105); Potassium 3.6 mmol/L (3.5-5.1); Sodium 128 mmol/L (136-145)
[2023-09-07] MEDS: cloNIDine 0.1 MG TAB PO SCH (09:23)
[2023-09-07] MEDS: Sodium Chloride 0.9% 1,000 ML IV SCH ×2 (09:25→09:55)
[2023-09-07] MEDS ORDERED: Heparin 10,000 UNITS/ 10 ML VIAL ONE (10:17)
[2023-09-07] MEDS ORDERED: Nitroglycerin 50 MG/250 ML BOT 0 ML ONE (10:17)
[2023-09-07] MEDS ORDERED: fentaNYL 50 mcg/mL 1 mL Vial ONE (10:59)
[2023-09-07] MEDS ORDERED: Midazolam HCl 2 mg/2 ml Vial ONE (11:00)
[2023-09-07] MEDS ORDERED: diphenhydrAMINE 50 MG/ML VIAL ONE (11:08)
[2023-09-07] MEDS ORDERED: Sodium Chloride 0.9% 200 ML IV PRN (11:32)
[2023-09-07] MEDS ORDERED: Nitroglycerin 0.4 MG TAB (25 Tab Bottle) SL PRN (11:32)
[2023-09-07] MEDS ORDERED: Iopamidol 370 76% 100 ML VIAL ONE (14:13)
[2023-09-07] MEDS: Acetaminophen/Codeine 30-300mg Tablet PO PRN (14:28)
[2023-09-07] MEDS: DAPTOmycin 500 MG in Sodium Chloride 0.9% 50 ML IVPB SCH (14:29)
[2023-09-07] MEDS ORDERED: NIFEdipine XL 90 MG ER.TAB PO SCH (21:00)
[2023-09-07] MEDS: NIFEdipine XL 60 MG ER.TAB PO SCH (22:09)
[2023-09-08 05:43] LABS: #Basophils Less than 0.03 10x3/uL (0.0-0.2); #Eosinphils Less than 0.03 10x3/uL (0.0-0.7); %Basophils 0.1 % (0.0-1.0); %Lymphocytes 4.6 % (21.0-51.0); %Monocytes 6.3 % (0.0-10.0); %Neutrophils 86.8 % (42.0-75.0); Hematocrit 22.3 % (42.0-52.0); Hemoglobin 7.8 g/dL (14.0-18.0); Mean Corpuscular Hemoglobin 33.1 pg (27.0-31.0); Mean Corpuscular Volume 94.5 fL (78.0-98.0); Mean Platelet Volume 9.5 fL (7.4-10.4); Platelet Count 227 10x3/uL (130-400); RBC Distribution Width 13.9 % (11.5-14.5); Red Blood Cell (RBC) Count 2.36 mill/uL (4.70-6.10)
[2023-09-08 05:54] LABS: Anion Gap 19 mmol/L (10-20); BUN (Urea Nitrogen) 57 mg/dL (8.9-20.6); Calc. Creatinine Clearance 10 mL/min (70-130); Calcium 7.7 mg/dL (7.8-10.44); Carbon Dioxide 22 mmol/L (22-29); Chloride 88 mmol/L (98-107); Estimated GFR 5; Glucose 196 mg/dL (70-105); Potassium 3.7 mmol/L (3.5-5.1); Sodium 125 mmol/L (136-145)
[2023-09-08] MEDS ORDERED: Morphine IR Tab 15 MG TAB PO PRN (10:19)
[2023-09-08] MEDS ORDERED: Acetaminophen/Codeine 30-300mg Tablet PO PRN (10:19)
[2023-09-08] MEDS: Polyethylene Glycol 3350 17 GM Packet PO SCH (10:53)
[2023-09-08] MEDS: Morphine 4 MG/ML VIAL SLOW IVP PRN (10:53)
[2023-09-08] MEDS: Acetaminophen 500 MG TAB PO SCH (10:54)
[2023-09-08] MEDS: Lorazepam 0.5 MG TAB PO PRN (10:54)
[2023-09-08] MEDS ORDERED: cefTRIAXone Sodium 2,000 MG in Syringe 0 ML IVPB SCH (12:30)
[2023-09-08] MEDS: Heparin 5,000 UNITS/ML VIAL SC SCH (20:26)
[2023-09-08] MEDS: Linezolid 600 MG TAB PO SCH (20:29)
[2023-09-09] MEDS ORDERED: Bupivacaine PF 0.5% 30 ML VIAL ONE (09:28)
[2023-09-09] MEDS ORDERED: Lidocaine 2% PF 5 ML VIAL ONE (09:28)
[2023-09-09] MEDS ORDERED: EPINEPHrine 1 MG/ML VIAL ONE (09:29)
[2023-09-09] MEDS ORDERED: PROPOFOL 20 ML ONE (09:39)
[2023-09-09] MEDS ORDERED: Midazolam HCl 2 mg/2 ml Vial ONE (09:39)
[2023-09-09] MEDS ORDERED: Ketamine In 0.9 % NaCl 50 MG/5 ML SYRINGE ONE (09:40)
[2023-09-09] MEDS ORDERED: DAPTOmycin 500 MG in Sodium Chloride 0.9% 50 ML IVPB SCH (11:30)
[2023-09-09] MEDS: Polyethylene Glycol 3350 17 GM Packet PO SCH (11:58)
[2023-09-09 14:16] LABS: Anion Gap 22 mmol/L (10-20); BUN (Urea Nitrogen) 63 mg/dL (8.9-20.6); Calc. Creatinine Clearance 9 mL/min (70-130); Calcium 8.2 mg/dL (7.8-10.44); Carbon Dioxide 21 mmol/L (22-29); Chloride 88 mmol/L (98-107); Estimated GFR 5; Glucose 217 mg/dL (70-105); Sodium 127 mmol/L (136-145)
[2023-09-09] MEDS ORDERED: Prochlorperazine Maleate 5 MG TAB PO PRN (15:19)
[2023-09-10 05:46] LABS: Anion Gap 19 mmol/L (10-20); BUN (Urea Nitrogen) 60 mg/dL (8.9-20.6); Calc. Creatinine Clearance 10 mL/min (70-130); Calcium 8.3 mg/dL (7.8-10.44); Carbon Dioxide 26 mmol/L (22-29); Cardiac Risk 2.3 (Less than 4.5); Chloride 88 mmol/L (98-107); Cholesterol 197 mg/dl (< 200 Desired); Estimated GFR 5; Glucose 137 mg/dL (70-105); HDL Cholesterol 86 mg/dL (>60 Neg Risk); LDL Cholesterol, Calculated 100 mg/dL; Potassium 3.8 mmol/L (3.5-5.1); Sodium 129 mmol/L (136-145); Triglycerides 56 mg/dL (Less than 150)
[2023-09-10 08:17] LABS: #Basophils Less than 0.03 10x3/uL (0.0-0.2); #Eosinphils Less than 0.03 10x3/uL (0.0-0.7); %Basophils 0.1 % (0.0-1.0); %Lymphocytes 7.1 % (21.0-51.0); %Monocytes 10.6 % (0.0-10.0); %Neutrophils 80.3 % (42.0-75.0); Hematocrit 22.3 % (42.0-52.0); Hemoglobin 7.8 g/dL (14.0-18.0); Mean Corpuscular Hemoglobin 33.6 pg (27.0-31.0); Mean Corpuscular Volume 96.1 fL (78.0-98.0); Mean Platelet Volume 9.7 fL (7.4-10.4); Platelet Count 208 10x3/uL (130-400); Red Blood Cell (RBC) Count 2.32 mill/uL (4.70-6.10)
[2023-09-10] MEDS: Losartan 25 MG TAB PO SCH (08:53)
[2023-09-10] MEDS: Isosorbide Mononitrate 30 MG ER.TAB PO SCH (08:53)
[2023-09-10] MEDS: DAPTOmycin 500 MG in Sodium Chloride 0.9% 50 ML IVPB SCH (11:20)
[2023-09-10 12:28] VITALS: BMI 22.5
[2023-09-11 04:18] LABS: #Basophils Less than 0.03 10x3/uL (0.0-0.2); %Basophils 0.1 % (0.0-1.0); %Eosinophils 1.9 % (0.0-10.0); %Lymphocytes 16.5 % (21.0-51.0); %Monocytes 11.3 % (0.0-10.0); %Neutrophils 67.7 % (42.0-75.0); Hematocrit 21.8 % (42.0-52.0); Hemoglobin 7.7 g/dL (14.0-18.0); Mean Corpuscular HGB CONC 35.3 g/dL (32.0-36.0); Mean Corpuscular Hemoglobin 33.9 pg (27.0-31.0); Mean Platelet Volume 9.5 fL (7.4-10.4); Platelet Count 183 10x3/uL (130-400); Red Blood Cell (RBC) Count 2.27 mill/uL (4.70-6.10)
[2023-09-11 04:40] LABS: Anion Gap 16 mmol/L (10-20); BUN (Urea Nitrogen) 60 mg/dL (8.9-20.6); Calc. Creatinine Clearance 10 mL/min (70-130); Calcium 7.9 mg/dL (7.8-10.44); Carbon Dioxide 27 mmol/L (22-29); Chloride 89 mmol/L (98-107); Estimated GFR 5; Glucose 120 mg/dL (70-105); Potassium 3.5 mmol/L (3.5-5.1); Sodium 128 mmol/L (136-145)
[2023-09-11] MEDS ORDERED: Promethazine HCl 12.5 MG in Sodium Chloride 0.9% 50 ML IVPB PRN (14:11)
[2023-09-11 16:13] VITALS: BP 119/68; TEMP 97.7
== END 2023-09-11 17:20 | disposition home health service (06) | DRG 871 ==
LOC: ERS 10:30 → ERHOLD 14:06 → 2NO 18:52
PROVIDERS: ADMIT Family Medicine; ATTEND Family Medicine
PROC: 3E03329 Introduction of Other Anti-infective into Peripheral Vein, Percutaneous Approach (ICD-10-PCS; 2023-09-02)
PROC: 4A00X4Z Measurement of Central Nervous Electrical Activity, External Approach (ICD-10-PCS; principal; 2023-09-03)
PROC: 4A023N7 Measurement of Cardiac Sampling and Pressure, Left Heart, Percutaneous Approach (ICD-10-PCS; 2023-09-07)
PROC: B2151ZZ Fluoroscopy of Left Heart using Low Osmolar Contrast (ICD-10-PCS; 2023-09-07)
PROC: B2111ZZ Fluoroscopy of Multiple Coronary Arteries using Low Osmolar Contrast (ICD-10-PCS; 2023-09-07)
PROC: 05HM33Z Insertion of Infusion Device into Right Internal Jugular Vein, Percutaneous Approach (ICD-10-PCS; 2023-09-09)
PROC: 0JH60XZ Insertion of Tunneled Vascular Access Device into Chest Subcutaneous Tissue and Fascia, Open Approach (ICD-10-PCS; 2023-09-09)
PROC: 3E043XZ Introduction of Vasopressor into Central Vein, Percutaneous Approach (ICD-10-PCS; 2023-09-09)
DX: A41.9 Sepsis, unspecified organism (principal); E43 Unspecified severe protein-calorie malnutrition; I21.4 Non-ST elevation (NSTEMI) myocardial infarction; N18.6 End stage renal disease; I13.0 Hypertensive heart and chronic kidney disease with heart failure and stage 1 through stage 4 chronic kidney disease, or unspecified chronic kidney disease; L03.116 Cellulitis of left lower limb; E87.1 Hypo-osmolality and hyponatremia; M86.9 Osteomyelitis, unspecified; I50.9 Heart failure, unspecified; I25.10 Atherosclerotic heart disease of native coronary artery without angina pectoris; I25.2 Old myocardial infarction; F41.9 Anxiety disorder, unspecified; F32.A Depression, unspecified; E11.22 Type 2 diabetes mellitus with diabetic chronic kidney disease; Z91.041 Radiographic dye allergy status; Z88.0 Allergy status to penicillin; Z88.8 Allergy status to other drugs, medicaments and biological substances; Z79.82 Long term (current) use of aspirin; Z79.899 Other long term (current) drug therapy; Z99.2 Dependence on renal dialysis; F43.10 Post-traumatic stress disorder, unspecified; E11.69 Type 2 diabetes mellitus with other specified complication; D63.1 Anemia in chronic kidney disease; E11.51 Type 2 diabetes mellitus with diabetic peripheral angiopathy without gangrene; Z68.23 Body mass index [BMI] 23.0-23.9, adult
CPT/HCPCS: 36415; 36416; 70450; 70551; 71045; 71250; 74174; 75635; 80048; 80053; 80061; 81001; 83605; 83690; 83735; 83880; 83970; 84100; 84145; 84484; 85025; 85610; 85730; 86140; 86850; 86900; 86901; 87040; 87070; 87077; 87186; 87205; 90945; 93005; 93010; 93306; 93458; 93798; 93880; 93923; 94760; 95816; 95819; 96374; 96375; 97139; 99152; C1751; C1769; C9113; G0257; J0171; J0360; J0665; J0692; J0878; J1200; J1642; J1644; J2001; J2060; J2250; J2270; J2550; J2704; J2765; J3010; J3490; J7050; J7512; Q5105; Q9967; S0028

== ENCOUNTER 2023-10-14 19:14 | Inpatient (IN) | payer MEDICARE ==
[2023-10-14 20:12] LABS: #Basophils 0.06 10x3/uL (0.0-0.2); %Basophils 0.4 % (0.0-1.0); %Eosinophils 0.5 % (0.0-10.0); %Lymphocytes 4.9 % (21.0-51.0); %Monocytes 6.6 % (0.0-10.0); %Neutrophils 86.8 % (42.0-75.0); Hematocrit 26.9 % (42.0-52.0); Hemoglobin 9.4 g/dL (14.0-18.0); Mean Corpuscular HGB CONC 34.9 g/dL (32.0-36.0); Mean Corpuscular Hemoglobin 32.3 pg (27.0-31.0); Mean Corpuscular Volume 92.4 fL (78.0-98.0); Mean Platelet Volume 9.2 fL (7.4-10.4); Platelet Count 242 10x3/uL (130-400); RBC Distribution Width 13.1 % (11.5-14.5); Red Blood Cell (RBC) Count 2.91 mill/uL (4.70-6.10)
[2023-10-14 20:39] LABS: Globulin 3.9 g/dL (2.4-3.5)
[2023-10-14 20:43] LABS: ALT (SGPT) 14 U/L (8-55); AST (SGOT) 22 U/L (5-34); Albumin 2.5 g/dL (3.5-5.0); Alkaline Phosphatase 72 U/L (40-110); Anion Gap 24 mmol/L (10-20); BUN (Urea Nitrogen) 83 mg/dL (8.9-20.6); Bilirubin, Total 0.5 mg/dL (0.2-1.2); Calc. Creatinine Clearance 0 mL/min (70-130); Calcium 8.3 mg/dL (7.8-10.44); Carbon Dioxide 22 mmol/L (22-29); Chloride 84 mmol/L (98-107); Estimated GFR 4; Glucose 125 mg/dL (70-105); Magnesium 2.7 mg/dL (1.6-2.6); Potassium 3.4 mmol/L (3.5-5.1); Protein, Total 6.4 g/dL (6.0-8.3); Sodium 127 mmol/L (136-145)
[2023-10-14 20:58] LABS: Troponin I 2.508 ng/mL (< 0.028)
[2023-10-14 22:05] LABS: INR-International Normal Ratio 1.1
[2023-10-14 22:06] LABS: PTT 40.3 sec (22.9-36.1)
[2023-10-15 01:19] LABS: Hematocrit 27.8 % (42.0-52.0); Hemoglobin 9.8 g/dL (14.0-18.0); Platelet Count 218 10x3/uL (130-400)
[2023-10-15 01:40] LABS: Critical Call Chem Troponin I ICU.TMC@0140; Troponin I 2.521 ng/mL (< 0.028)
[2023-10-15 02:49] VITALS: BMI 23.0
[2023-10-15 03:48] LABS: #Basophils Less than 0.03 10x3/uL (0.0-0.2); #Eosinphils Less than 0.03 10x3/uL (0.0-0.7); %Basophils 0.1 % (0.0-1.0); %Lymphocytes 2.9 % (21.0-51.0); %Monocytes 1.4 % (0.0-10.0); %Neutrophils 94.9 % (42.0-75.0); Hematocrit 25.3 % (42.0-52.0); Hemoglobin 8.9 g/dL (14.0-18.0); Mean Corpuscular HGB CONC 35.2 g/dL (32.0-36.0); Mean Corpuscular Hemoglobin 33.2 pg (27.0-31.0); Mean Corpuscular Volume 94.4 fL (78.0-98.0); Mean Platelet Volume 9.4 fL (7.4-10.4); Platelet Count 190 10x3/uL (130-400); Red Blood Cell (RBC) Count 2.68 mill/uL (4.70-6.10)
[2023-10-15 03:59] LABS: Globulin 3.8 g/dL (2.4-3.5)
[2023-10-15 04:04] LABS: ALT (SGPT) 12 U/L (8-55); AST (SGOT) 20 U/L (5-34); Albumin 2.3 g/dL (3.5-5.0); Alkaline Phosphatase 64 U/L (40-110); Anion Gap 22 mmol/L (10-20); BUN (Urea Nitrogen) 83 mg/dL (8.9-20.6); Bilirubin, Total 0.5 mg/dL (0.2-1.2); Calc. Creatinine Clearance 8 mL/min (70-130); Calcium 8.2 mg/dL (7.8-10.44); Carbon Dioxide 20 mmol/L (22-29); Chloride 88 mmol/L (98-107); Estimated GFR 4; Glucose 121 mg/dL (70-105); Magnesium 2.8 mg/dL (1.6-2.6); Phosphorus 6.5 mg/dL (2.3-4.7); Potassium 3.8 mmol/L (3.5-5.1); Protein, Total 6.1 g/dL (6.0-8.3); Sodium 126 mmol/L (136-145)
[2023-10-15 04:15] LABS: Critical Call Chem Troponin I ICU.TMC @0415; Troponin I 2.604 ng/mL (< 0.028)
[2023-10-15 18:51] LABS: INR-International Normal Ratio 1.1; Prothrombin Time 14.6 sec (12.0-14.7)
[2023-10-15 18:52] LABS: PTT 54.3 sec (22.9-36.1)
[2023-10-16 02:07] LABS: PTT 184.5 sec (22.9-36.1)
[2023-10-16 05:16] LABS: #Basophils 0.04 10x3/uL (0.0-0.2); %Basophils 0.4 % (0.0-1.0); %Eosinophils 1.2 % (0.0-10.0); %Lymphocytes 13.1 % (21.0-51.0); %Monocytes 10.6 % (0.0-10.0); Hemoglobin 7.5 g/dL (14.0-18.0); Mean Corpuscular HGB CONC 35.7 g/dL (32.0-36.0); Mean Corpuscular Hemoglobin 32.6 pg (27.0-31.0); Mean Corpuscular Volume 91.3 fL (78.0-98.0); Mean Platelet Volume 9.2 fL (7.4-10.4); Platelet Count 202 10x3/uL (130-400); RBC Distribution Width 12.8 % (11.5-14.5)
[2023-10-16 05:52] LABS: Globulin 2.8 g/dL (2.4-3.5)
[2023-10-16 05:56] LABS: ALT (SGPT) 10 U/L (8-55); AST (SGOT) 13 U/L (5-34); Albumin 1.9 g/dL (3.5-5.0); Alkaline Phosphatase 49 U/L (40-110); Anion Gap 18 mmol/L (10-20); BUN (Urea Nitrogen) 63 mg/dL (8.9-20.6); Bilirubin, Total 0.4 mg/dL (0.2-1.2); Calc. Creatinine Clearance 10 mL/min (70-130); Calcium 7.6 mg/dL (7.8-10.44); Carbon Dioxide 23 mmol/L (22-29); Chloride 87 mmol/L (98-107); Estimated GFR 5; Glucose 120 mg/dL (70-105); Potassium 2.9 mmol/L (3.5-5.1); Protein, Total 4.7 g/dL (6.0-8.3); Sodium 125 mmol/L (136-145)
[2023-10-16 14:37] LABS: Anion Gap 16 mmol/L (10-20); BUN (Urea Nitrogen) 61 mg/dL (8.9-20.6); Calc. Creatinine Clearance 11 mL/min (70-130); Calcium 7.6 mg/dL (7.8-10.44); Carbon Dioxide 24 mmol/L (22-29); Chloride 86 mmol/L (98-107); Estimated GFR 5; Glucose 111 mg/dL (70-105); Sodium 123 mmol/L (136-145)
[2023-10-17 01:28] LABS: Hematocrit 21.5 % (42.0-52.0); Hemoglobin 7.5 g/dL (14.0-18.0); Platelet Count 193 10x3/uL (130-400)
[2023-10-17 05:42] LABS: Hematocrit 21.5 % (42.0-52.0); Hemoglobin 7.6 g/dL (14.0-18.0); Mean Corpuscular HGB CONC 35.3 g/dL (32.0-36.0); Mean Corpuscular Volume 93.5 fL (78.0-98.0); Mean Platelet Volume 9.1 fL (7.4-10.4); Platelet Count 207 10x3/uL (130-400); RBC Distribution Width 12.8 % (11.5-14.5)
[2023-10-17 06:06] LABS: Anion Gap 16 mmol/L (10-20); BUN (Urea Nitrogen) 54 mg/dL (8.9-20.6); Calc. Creatinine Clearance 12 mL/min (70-130); Calcium 7.3 mg/dL (7.8-10.44); Carbon Dioxide 24 mmol/L (22-29); Chloride 86 mmol/L (98-107); Estimated GFR 6; Glucose 113 mg/dL (70-105); Phosphorus 4.8 mg/dL (2.3-4.7); Potassium 3.4 mmol/L (3.5-5.1); Sodium 123 mmol/L (136-145)
[2023-10-18 05:46] LABS: Hematocrit 24.3 % (42.0-52.0); Hemoglobin 8.3 g/dL (14.0-18.0); Mean Corpuscular HGB CONC 34.2 g/dL (32.0-36.0); Mean Corpuscular Hemoglobin 32.5 pg (27.0-31.0); Mean Corpuscular Volume 95.3 fL (78.0-98.0); Mean Platelet Volume 9.5 fL (7.4-10.4); Platelet Count 200 10x3/uL (130-400); Red Blood Cell (RBC) Count 2.55 mill/uL (4.70-6.10)
[2023-10-18 06:20] LABS: PTT 162.2 sec (22.9-36.1)
[2023-10-18 06:35] LABS: Anion Gap 19 mmol/L (10-20); BUN (Urea Nitrogen) 48 mg/dL (8.9-20.6); Calc. Creatinine Clearance 12 mL/min (70-130); Calcium 7.2 mg/dL (7.8-10.44); Carbon Dioxide 20 mmol/L (22-29); Chloride 87 mmol/L (98-107); Estimated GFR 6; Glucose 78 mg/dL (70-105); Potassium 3.8 mmol/L (3.5-5.1); Sodium 122 mmol/L (136-145)
[2023-10-19 01:03] LABS: Hematocrit 29.2 % (42.0-52.0); Hemoglobin 10.3 g/dL (14.0-18.0); Platelet Count 175 10x3/uL (130-400)
[2023-10-19 05:55] LABS: #Basophils Less than 0.03 10x3/uL (0.0-0.2); #Eosinphils Less than 0.03 10x3/uL (0.0-0.7); %Lymphocytes 8.1 % (21.0-51.0); %Monocytes 7.7 % (0.0-10.0); %Neutrophils 82.9 % (42.0-75.0); Hematocrit 27.2 % (42.0-52.0); Hemoglobin 9.6 g/dL (14.0-18.0); Mean Corpuscular HGB CONC 35.3 g/dL (32.0-36.0); Mean Corpuscular Hemoglobin 32.4 pg (27.0-31.0); Mean Corpuscular Volume 91.9 fL (78.0-98.0); Mean Platelet Volume 9.4 fL (7.4-10.4); Platelet Count 180 10x3/uL (130-400); Red Blood Cell (RBC) Count 2.96 mill/uL (4.70-6.10)
[2023-10-19 06:23] LABS: Anion Gap 17 mmol/L (10-20); BUN (Urea Nitrogen) 49 mg/dL (8.9-20.6); Calc. Creatinine Clearance 11 mL/min (70-130); Calcium 7.5 mg/dL (7.8-10.44); Carbon Dioxide 22 mmol/L (22-29); Chloride 87 mmol/L (98-107); Estimated GFR 6; Glucose 140 mg/dL (70-105); Potassium 3.7 mmol/L (3.5-5.1); Sodium 122 mmol/L (136-145)
[2023-10-19 19:03] LABS: Potassium 3.4 mmol/L (3.5-5.1); Sodium 125 mmol/L (136-145)
[2023-10-20 08:59] LABS: BUN (Urea Nitrogen) 47 mg/dL (8.9-20.6); Calc. Creatinine Clearance 11 mL/min (70-130); Calcium 7.4 mg/dL (7.8-10.44); Carbon Dioxide 24 mmol/L (22-29); Chloride 89 mmol/L (98-107); Estimated GFR 6; Glucose 96 mg/dL (70-105); Potassium 3.4 mmol/L (3.5-5.1); Sodium 127 mmol/L (136-145)
[2023-10-20 09:45] LABS: #Basophils 0.03 10x3/uL (0.0-0.2); %Basophils 0.2 % (0.0-1.0); %Eosinophils 0.7 % (0.0-10.0); %Lymphocytes 6.3 % (21.0-51.0); %Monocytes 8.9 % (0.0-10.0); %Neutrophils 82.8 % (42.0-75.0); Hematocrit 28.2 % (42.0-52.0); Hemoglobin 9.7 g/dL (14.0-18.0); Mean Corpuscular HGB CONC 34.4 g/dL (32.0-36.0); Mean Corpuscular Hemoglobin 31.6 pg (27.0-31.0); Mean Corpuscular Volume 91.9 fL (78.0-98.0); Mean Platelet Volume 9.5 fL (7.4-10.4); Platelet Count 200 10x3/uL (130-400); Red Blood Cell (RBC) Count 3.07 mill/uL (4.70-6.10)
[2023-10-20 11:29] LABS: Anion Gap 19 mmol/L (10-20)
[2023-10-20 12:28] LABS: Anion Gap 17 mmol/L (10-20); BUN (Urea Nitrogen) 46 mg/dL (8.9-20.6); Calc. Creatinine Clearance 12 mL/min (70-130); Carbon Dioxide 23 mmol/L (22-29); Chloride 91 mmol/L (98-107); Estimated GFR 6; Glucose 79 mg/dL (70-105); Potassium 3.5 mmol/L (3.5-5.1); Sodium 127 mmol/L (136-145)
[2023-10-20 15:12] LABS: Calcium 7.6 mg/dL (7.8-10.44)
[2023-10-21 01:56] LABS: Hematocrit 25.4 % (42.0-52.0); Hemoglobin 8.9 g/dL (14.0-18.0); Platelet Count 160 10x3/uL (130-400)
[2023-10-21 05:13] LABS: #Basophils Less than 0.03 10x3/uL (0.0-0.2); %Basophils 0.2 % (0.0-1.0); %Lymphocytes 7.8 % (21.0-51.0); %Monocytes 8.5 % (0.0-10.0); %Neutrophils 81.9 % (42.0-75.0); Hematocrit 26.4 % (42.0-52.0); Hemoglobin 9.1 g/dL (14.0-18.0); Mean Corpuscular HGB CONC 34.5 g/dL (32.0-36.0); Mean Corpuscular Hemoglobin 32.6 pg (27.0-31.0); Mean Corpuscular Volume 94.6 fL (78.0-98.0); Mean Platelet Volume 9.2 fL (7.4-10.4); Platelet Count 180 10x3/uL (130-400); RBC Distribution Width 14.3 % (11.5-14.5); Red Blood Cell (RBC) Count 2.79 mill/uL (4.70-6.10)
[2023-10-21 05:34] LABS: Anion Gap 18 mmol/L (10-20); BUN (Urea Nitrogen) 44 mg/dL (8.9-20.6); Calc. Creatinine Clearance 12 mL/min (70-130); Calcium 7.2 mg/dL (7.8-10.44); Carbon Dioxide 21 mmol/L (22-29); Chloride 93 mmol/L (98-107); Estimated GFR 6; Glucose 94 mg/dL (70-105); Potassium 3.4 mmol/L (3.5-5.1); Sodium 129 mmol/L (136-145)
[2023-10-21 12:24] VITALS: BMI 23.1
[2023-10-22 10:00] VITALS: BP 185/99; TEMP 98.6
== END 2023-10-22 11:46 | disposition home health service (06) | DRG 280 ==
LOC: ERS 19:14 → CCU 23:33 → 2NO 10-17 15:31
PROVIDERS: ADMIT Student in an Organized Health Care Education/Training Program; ATTEND Family Medicine
PROC: 3E033XZ Introduction of Vasopressor into Peripheral Vein, Percutaneous Approach (ICD-10-PCS; 2023-10-14)
PROC: 0JPT3XZ Removal of Tunneled Vascular Access Device from Trunk Subcutaneous Tissue and Fascia, Percutaneous Approach (ICD-10-PCS; principal; 2023-10-22)
PROC: 30233N1 Transfusion of Nonautologous Red Blood Cells into Peripheral Vein, Percutaneous Approach (ICD-10-PCS; 2023-10-22)
DX: I25.110 Atherosclerotic heart disease of native coronary artery with unstable angina pectoris (principal); I50.33 Acute on chronic diastolic (congestive) heart failure; I21.A1 Myocardial infarction type 2; N18.6 End stage renal disease; I13.0 Hypertensive heart and chronic kidney disease with heart failure and stage 1 through stage 4 chronic kidney disease, or unspecified chronic kidney disease; I16.1 Hypertensive emergency; E87.1 Hypo-osmolality and hyponatremia; E87.20 Acidosis, unspecified; M86.8X7 Other osteomyelitis, ankle and foot; N17.9 Acute kidney failure, unspecified; Z51.5 Encounter for palliative care; E11.621 Type 2 diabetes mellitus with foot ulcer; L97.529 Non-pressure chronic ulcer of other part of left foot with unspecified severity; D64.9 Anemia, unspecified; D63.1 Anemia in chronic kidney disease; E11.69 Type 2 diabetes mellitus with other specified complication; N18.9 Chronic kidney disease, unspecified; R11.2 Nausea with vomiting, unspecified; E87.6 Hypokalemia; E11.22 Type 2 diabetes mellitus with diabetic chronic kidney disease; F12.10 Cannabis abuse, uncomplicated; Z99.2 Dependence on renal dialysis; Z91.013 Allergy to seafood; Z88.0 Allergy status to penicillin; Z88.8 Allergy status to other drugs, medicaments and biological substances; Z79.82 Long term (current) use of aspirin; Z79.899 Other long term (current) drug therapy
CPT/HCPCS: 36415; 36416; 36430; 71045; 80048; 80053; 83605; 83735; 83880; 84100; 84484; 85014; 85018; 85025; 85027; 85049; 85610; 85730; 86140; 86850; 86900; 86901; 87040; 93005; 93306; 94760; 96365; 96366; 96375; 97139; J0171; J0360; J0456; J0696; J0780; J1100; J1200; J1642; J1644; J2020; J2060; J2270; J2272; J2405; J2550; J2765; J3480; J3490; J7050; J7512; P9016; Q5105

== ENCOUNTER 2024-02-16 18:49 | Inpatient (IN) | payer MEDICARE ==
[2024-02-16] MEDS ORDERED: Promethazine HCl 25 MG/ML VIAL ONE (21:36)
[2024-02-16] MEDS ORDERED: Morphine 4 MG/ML VIAL ONE (21:36)
[2024-02-16 21:40] LABS: #Basophils 0.03 10x3/uL (0.0-0.2); %Basophils 0.3 % (0.0-1.0); %Eosinophils 1.2 % (0.0-10.0); %Lymphocytes 7.2 % (21.0-51.0); %Monocytes 8.7 % (0.0-10.0); %Neutrophils 81.8 % (42.0-75.0); Hematocrit 27.9 % (42.0-52.0); Hemoglobin 10.3 g/dL (14.0-18.0); Mean Corpuscular HGB CONC 36.9 g/dL (32.0-36.0); Mean Corpuscular Hemoglobin 31.7 pg (27.0-31.0); Mean Corpuscular Volume 85.8 fL (78.0-98.0); Mean Platelet Volume 8.7 fL (7.4-10.4); Platelet Count 239 10x3/uL (130-400); RBC Distribution Width 14.4 % (11.5-14.5); Red Blood Cell (RBC) Count 3.25 mill/uL (4.70-6.10)
[2024-02-16 21:58] LABS: Prothrombin Time 12.8 sec (12.0-14.7)
[2024-02-16 21:59] LABS: Lipase 23 U/L (8-78); PTT 26.3 sec (22.9-36.1)
[2024-02-16 22:02] LABS: Acetaminophen Less than 10 mcg/mL (Less than 10); Alcohol Less than 10.0 mg/dL (Less than 10); Salicylate Less than 8.0 mg/dL (Less than 8.0)
[2024-02-16 22:09] LABS: ALT (SGPT) 21 U/L (8-55); AST (SGOT) 31 U/L (5-34); Albumin 3.2 g/dL (3.5-5.0); Alkaline Phosphatase 78 U/L (40-110); Anion Gap 21 mmol/L (10-20); BUN (Urea Nitrogen) 72 mg/dL (8.9-20.6); Bilirubin, Total 0.7 mg/dL (0.2-1.2); Calc. Creatinine Clearance 0 mL/min (70-130); Calcium 8.1 mg/dL (7.8-10.44); Carbon Dioxide 21 mmol/L (22-29); Chloride 78 mmol/L (98-107); Estimated GFR 5; Globulin 3.2 g/dL (2.4-3.5); Glucose 87 mg/dL (70-105); Potassium 2.6 mmol/L (3.5-5.1); Protein, Total 6.4 g/dL (6.0-8.3); Sodium 117 mmol/L (136-145)
[2024-02-16] MEDS ORDERED: Potassium Bicarbonate/Cit Ac 20 MEQ TAB ONE (23:26)
[2024-02-16] MEDS ORDERED: Insulin Lispro 100 UNIT/ML 10 ML VIAL SC PRN ×2 (23:59)
[2024-02-16] MEDS ORDERED: Dextrose 50% Abboject 50 ML SYRINGE SLOW IVP PRN (23:59)
[2024-02-16] MEDS ORDERED: Glucagon 1 MG/ML KIT IM PRN (23:59)
[2024-02-16] MEDS ORDERED: Dextrose 5% in Water 1,000 ML IV PRN (23:59)
[2024-02-17 00:21] LABS: Magnesium 1.9 mg/dL (1.6-2.6)
[2024-02-17 00:22] VITALS: BMI 23.0
[2024-02-17 01:24] LABS: Anion Gap 22 mmol/L (10-20); BUN (Urea Nitrogen) 73 mg/dL (8.9-20.6); Calc. Creatinine Clearance 10 mL/min (70-130); Calcium 7.9 mg/dL (7.8-10.44); Carbon Dioxide 19 mmol/L (22-29); Chloride 79 mmol/L (98-107); Estimated GFR 5; Glucose 85 mg/dL (70-105); Potassium 2.7 mmol/L (3.5-5.1); Sodium 117 mmol/L (136-145)
[2024-02-17] MEDS: Magnesium 2 GM/50 ML(in water) 2 GM in Premix 1 BAG IVPB SCH (01:54)
[2024-02-17] MEDS: Promethazine HCl 12.5 MG in Sodium Chloride 0.9% 50 ML IVPB PRN (03:11)
[2024-02-17] MEDS: Potassium Chloride 20 MEQ TAB PO SCH ×2 (03:23→17:03)
[2024-02-17 05:52] LABS: #Basophils 0.03 10x3/uL (0.0-0.2); %Basophils 0.3 % (0.0-1.0); %Eosinophils 1.9 % (0.0-10.0); %Lymphocytes 9.9 % (21.0-51.0); %Monocytes 9.6 % (0.0-10.0); %Neutrophils 77.6 % (42.0-75.0); Hematocrit 26.1 % (42.0-52.0); Hemoglobin 9.7 g/dL (14.0-18.0); Mean Corpuscular HGB CONC 37.2 g/dL (32.0-36.0); Mean Corpuscular Hemoglobin 31.8 pg (27.0-31.0); Mean Corpuscular Volume 85.6 fL (78.0-98.0); Mean Platelet Volume 8.6 fL (7.4-10.4); Platelet Count 240 10x3/uL (130-400); RBC Distribution Width 14.4 % (11.5-14.5); Red Blood Cell (RBC) Count 3.05 mill/uL (4.70-6.10)
[2024-02-17 06:09] LABS: Anion Gap 20 mmol/L (10-20); BUN (Urea Nitrogen) 71 mg/dL (8.9-20.6); Calc. Creatinine Clearance 10 mL/min (70-130); Calcium 7.9 mg/dL (7.8-10.44); Carbon Dioxide 21 mmol/L (22-29); Chloride 80 mmol/L (98-107); Estimated GFR 5; Glucose 104 mg/dL (70-105); Magnesium 2.3 mg/dL (1.6-2.6); Potassium 2.9 mmol/L (3.5-5.1); Sodium 118 mmol/L (136-145)
[2024-02-17] MEDS: Potassium Chloride 20 MEQ in Premix 1 BAG IVPB SCH (07:40)
[2024-02-17] MEDS: Heparin 5,000 UNITS/ML VIAL SC SCH (07:40)
[2024-02-17 09:39] LABS: Anion Gap 19 mmol/L (10-20); BUN (Urea Nitrogen) 68 mg/dL (8.9-20.6); Calc. Creatinine Clearance 10 mL/min (70-130); Carbon Dioxide 23 mmol/L (22-29); Chloride 81 mmol/L (98-107); Estimated GFR 5; Glucose 110 mg/dL (70-105); Potassium 2.9 mmol/L (3.5-5.1); Sodium 120 mmol/L (136-145)
[2024-02-17] MEDS: Sodium Chloride 1 GM TAB PO SCH ×2 (13:22→17:03)
[2024-02-17] MEDS ORDERED: OLANZapine 10 MG VIAL IM SCH (15:00)
[2024-02-17 16:12] LABS: Anion Gap 21 mmol/L (10-20); BUN (Urea Nitrogen) 68 mg/dL (8.9-20.6); Calc. Creatinine Clearance 10 mL/min (70-130); Calcium 8.2 mg/dL (7.8-10.44); Carbon Dioxide 22 mmol/L (22-29); Chloride 81 mmol/L (98-107); Estimated GFR 5; Glucose 96 mg/dL (70-105); Sodium 121 mmol/L (136-145)
[2024-02-17] MEDS: Sterile Water 10 ML VIAL FS SCH ×2 (16:56→19:38)
[2024-02-17] MEDS ORDERED: Nitroglycerin 0.4 MG TAB (25 Tab Bottle) SL PRN (19:19)
[2024-02-17] MEDS: OLANZapine 10 MG VIAL IM SCH (19:37)
[2024-02-17] MEDS: Labetalol HCl 100 MG/20 ML VIAL SLOW IVP PRN (19:37)
[2024-02-17] MEDS: Carvedilol 6.25 MG TAB PO SCH (20:35)
[2024-02-17] MEDS: Lorazepam 1 MG TAB PO SCH (20:36)
[2024-02-17] MEDS: hydrALAZINE 25 MG TAB PO SCH (20:36)
[2024-02-17 23:53] LABS: Anion Gap 20 mmol/L (10-20); BUN (Urea Nitrogen) 75 mg/dL (8.9-20.6); Calc. Creatinine Clearance 9 mL/min (70-130); Calcium 7.7 mg/dL (7.8-10.44); Carbon Dioxide 20 mmol/L (22-29); Chloride 84 mmol/L (98-107); Estimated GFR 5; Glucose 79 mg/dL (70-105); Potassium 3.2 mmol/L (3.5-5.1); Sodium 121 mmol/L (136-145)
[2024-02-18 04:15] LABS: #Basophils 0.04 10x3/uL (0.0-0.2); %Basophils 0.5 % (0.0-1.0); %Eosinophils 1.7 % (0.0-10.0); %Lymphocytes 14.2 % (21.0-51.0); %Monocytes 10.1 % (0.0-10.0); Hematocrit 25.7 % (42.0-52.0); Hemoglobin 9.6 g/dL (14.0-18.0); Mean Corpuscular HGB CONC 37.4 g/dL (32.0-36.0); Mean Corpuscular Hemoglobin 31.7 pg (27.0-31.0); Mean Corpuscular Volume 84.8 fL (78.0-98.0); Mean Platelet Volume 8.4 fL (7.4-10.4); Platelet Count 196 10x3/uL (130-400); RBC Distribution Width 14.5 % (11.5-14.5); Red Blood Cell (RBC) Count 3.03 mill/uL (4.70-6.10)
[2024-02-18 04:31] LABS: Anion Gap 21 mmol/L (10-20); BUN (Urea Nitrogen) 71 mg/dL (8.9-20.6); Calc. Creatinine Clearance 10 mL/min (70-130); Calcium 8.2 mg/dL (7.8-10.44); Carbon Dioxide 19 mmol/L (22-29); Chloride 86 mmol/L (98-107); Estimated GFR 5; Glucose 106 mg/dL (70-105); Magnesium 2.3 mg/dL (1.6-2.6); Potassium 2.9 mmol/L (3.5-5.1); Sodium 123 mmol/L (136-145)
[2024-02-18] MEDS: Potassium Chloride 20 MEQ TAB PO SCH (05:32)
[2024-02-18] MEDS: Acetaminophen 325 MG TAB PO PRN (05:49)
[2024-02-18 06:50] LABS: Bacteria/HPF None Seen HPF (None Seen); Bilirubin Negative (Negative); Blood, Urine Negative (Negative); CAUTI Indications for Culture Alt mental st,lethar; Clarity Clear (Clear); Glucose, Urine (Dipstick) 70 mg/dL (Negative); Ketone, Urine Negative (Negative); Leukocyte Negative Leu/uL (Negative); Nitrite Negative (Negative); Protein, Urine (Dipstick) 300 mg/dL (Neg-Trace); RBC/HPF None Seen HPF (0-3); Specific Gravity, Urine 1.008 (1.002-1.036); Squamous Epithelial None Seen HPF (0-3); Urobilinogen Normal mg/dL (Less than 2); WBC/HPF 0-3 HPF (0-3)
[2024-02-18 06:52] LABS: Urine Culture Reflex No No
[2024-02-18 06:56] LABS: Amphetamine Not Detected (NotDetected); Barbiturates Screen Not Detected (NotDetected); Benzodiazepine Screen Detected (NotDetected); Cocaine Metabolite Screen Not Detected (NotDetected); Methadone Not Detected (NotDetected); Methamphetamine Not Detected (NotDetected); Opiate Screen Detected (NotDetected); Oxycodone Screen Not Detected (NotDetected); Phencyclidine (PCP) Not Detected (NotDetected); THC/Cannabinoid Screen Detected (NotDetected); Tricyclic Screen Not Detected (NotDetected)
[2024-02-18] MEDS: Isosorbide Mononitrate 60 MG ER.TAB PO SCH (10:18)
[2024-02-18] MEDS: NIFEdipine XL 60 MG ER.TAB PO SCH (10:18)
[2024-02-18] MEDS: HYDROcodone/Acetaminophen 10/325 mg Tablet PO PRN (10:37)
[2024-02-18 12:26] LABS: Albumin 2.8 g/dL (3.5-5.0); Anion Gap 21 mmol/L (10-20); BUN (Urea Nitrogen) 70 mg/dL (8.9-20.6); Calc. Creatinine Clearance 9 mL/min (70-130); Calcium 8.2 mg/dL (7.8-10.44); Carbon Dioxide 17 mmol/L (22-29); Chloride 88 mmol/L (98-107); Estimated GFR 5; Glucose 142 mg/dL (70-105); Phosphorus 6.6 mg/dL (2.3-4.7); Potassium 4.1 mmol/L (3.5-5.1); Sodium 122 mmol/L (136-145)
[2024-02-18] MEDS: hydrALAZINE 20 MG/ML VIAL SLOW IVP PRN (23:21)
[2024-02-19] MEDS: Lorazepam 2 MG/ML VIAL SLOW IVP SCH (08:01)
[2024-02-19 09:02] LABS: Anion Gap 23 mmol/L (10-20); BUN (Urea Nitrogen) 69 mg/dL (8.9-20.6); Calc. Creatinine Clearance 8 mL/min (70-130); Calcium 8.9 mg/dL (7.8-10.44); Carbon Dioxide 22 mmol/L (22-29); Chloride 87 mmol/L (98-107); Estimated GFR 4; Glucose 121 mg/dL (70-105); Potassium 3.6 mmol/L (3.5-5.1); Sodium 128 mmol/L (136-145)
[2024-02-19] MEDS ORDERED: PERITONEAL DIALYSIS FS PRN (09:26)
[2024-02-20 05:07] LABS: Anion Gap 22 mmol/L (10-20); BUN (Urea Nitrogen) 69 mg/dL (8.9-20.6); Calc. Creatinine Clearance 8 mL/min (70-130); Calcium 8.7 mg/dL (7.8-10.44); Carbon Dioxide 20 mmol/L (22-29); Chloride 90 mmol/L (98-107); Estimated GFR 4; Glucose 97 mg/dL (70-105); Potassium 3.3 mmol/L (3.5-5.1); Sodium 129 mmol/L (136-145)
[2024-02-20] MEDS: Potassium Chloride 20 MEQ TAB PO SCH (15:01)
[2024-02-20 17:12] LABS: Magnesium 2.6 mg/dL (1.6-2.6)
[2024-02-20] MEDS: Mirtazapine 15 MG TAB PO SCH (20:35)
[2024-02-20] MEDS: Pantoprazole DR 40 MG TAB PO SCH (20:36)
[2024-02-20] MEDS: Ranolazine ER 500 MG TAB PO SCH (20:36)
[2024-02-20] MEDS ORDERED: TENAPANOR HCL PO SCH (21:00)
[2024-02-21 04:54] LABS: #Basophils 0.05 10x3/uL (0.0-0.2); %Basophils 0.7 % (0.0-1.0); %Eosinophils 2.6 % (0.0-10.0); %Monocytes 13.5 % (0.0-10.0); %Neutrophils 61.8 % (42.0-75.0); Hematocrit 24.6 % (42.0-52.0); Hemoglobin 8.7 g/dL (14.0-18.0); Mean Corpuscular HGB CONC 35.4 g/dL (32.0-36.0); Mean Corpuscular Hemoglobin 32.1 pg (27.0-31.0); Mean Corpuscular Volume 90.8 fL (78.0-98.0); Mean Platelet Volume 8.9 fL (7.4-10.4); Platelet Count 202 10x3/uL (130-400); RBC Distribution Width 14.8 % (11.5-14.5); Red Blood Cell (RBC) Count 2.71 mill/uL (4.70-6.10)
[2024-02-21 05:23] LABS: ALT (SGPT) 12 U/L (8-55); AST (SGOT) 13 U/L (5-34); Albumin 2.6 g/dL (3.5-5.0); Alkaline Phosphatase 57 U/L (40-110); Anion Gap 21 mmol/L (10-20); BUN (Urea Nitrogen) 72 mg/dL (8.9-20.6); Bilirubin, Total 0.7 mg/dL (0.2-1.2); Calc. Creatinine Clearance 8 mL/min (70-130); Calcium 8.1 mg/dL (7.8-10.44); Carbon Dioxide 21 mmol/L (22-29); Chloride 93 mmol/L (98-107); Estimated GFR 4; Globulin 2.7 g/dL (2.4-3.5); Glucose 95 mg/dL (70-105); Magnesium 2.5 mg/dL (1.6-2.6); Potassium 3.9 mmol/L (3.5-5.1); Protein, Total 5.3 g/dL (6.0-8.3); Sodium 131 mmol/L (136-145)
[2024-02-21] MEDS: Losartan 25 MG TAB PO SCH (08:55)
[2024-02-21] MEDS: Clopidogrel Bisulfate 75 MG TAB PO SCH (08:55)
[2024-02-21] MEDS: Aspirin 81 mg Enteric Coated Tablet PO SCH (08:55)
[2024-02-21 09:24] LABS: Iron 127 ug/dL (65-175); Iron Binding Capacity, Total 229 mcg/dL (261-462)
[2024-02-21 17:22] VITALS: BP 110/58; TEMP 98
== END 2024-02-21 18:00 | disposition home or self-care (01) | DRG 640 ==
LOC: ERS 18:49 → IMCU/EMU 23:17 → 2NO 02-18 18:53
PROVIDERS: ADMIT Internal Medicine; ATTEND Family Medicine
PROC: 5A1D70Z Performance of Urinary Filtration, Intermittent, Less than 6 Hours Per Day (ICD-10-PCS; principal; 2024-02-17)
DX: E87.1 Hypo-osmolality and hyponatremia (principal); G92.8 Other toxic encephalopathy; N18.6 End stage renal disease; I50.32 Chronic diastolic (congestive) heart failure; R18.8 Other ascites; F43.10 Post-traumatic stress disorder, unspecified; I25.10 Atherosclerotic heart disease of native coronary artery without angina pectoris; E11.22 Type 2 diabetes mellitus with diabetic chronic kidney disease; D63.1 Anemia in chronic kidney disease; E87.6 Hypokalemia; Z66 Do not resuscitate; F41.9 Anxiety disorder, unspecified; S91.302A Unspecified open wound, left foot, initial encounter; Z99.2 Dependence on renal dialysis; Z88.8 Allergy status to other drugs, medicaments and biological substances; Z88.1 Allergy status to other antibiotic agents; Z88.0 Allergy status to penicillin; Z79.899 Other long term (current) drug therapy; Z95.5 Presence of coronary angioplasty implant and graft; Z98.890 Other specified postprocedural states; X58.XXXA Exposure to other specified factors, initial encounter
CPT/HCPCS: 36415; 36416; 70450; 71045; 74176; 80048; 80053; 80306; 80307; 81001; 82040; 82088; 82140; 82306; 82533; 82728; 83540; 83550; 83605; 83690; 83735; 83880; 83930; 83935; 83970; 84100; 84443; 85025; 85046; 85610; 85730; 87040; 87070; 87205; 90935; 90945; 93005; 96365; 96375; 97139; G0257; J0360; J1644; J2060; J2272; J2550; J3475; J3480

== ENCOUNTER 2024-05-14 22:52 | Inpatient (IN) | payer MEDICARE ==
[~2024-05-14 22:52] MED LIST: Atropine Sulfate 1 mg/10 ml Syringe ONE; Calcium Chloride 1 GM/10 ML Abboject SYRINGE ONE; Dextrose 50% Abboject 50 ML SYRINGE ONE; Sodium Bicarb 50 MEQ/50 ML Abboject 8.4% SYRINGE ONE
[2024-05-14] MEDS ORDERED: NOREPINEPHRINE 8 MG/250 ML-D5W 250 ML ONE (22:59)
[2024-05-14 23:24] LABS: Analyzer IN Cardio ER; Base Excess (BEa) -14.9 mEq/L (-2.0 to +3.0); CO2 Tension 55.4 mmHg (35.0-45.0); Carboxyhemoglobin (COHb) 0.5 gm% (0.0-3.0); Hematocrit-ABG 25 % (42.0-52.0); Hemoglobin (Hb) 8.6 g/dL (14.0-18.0); O2 Tension (PaO2), arterial 124.3 mmHg (80.0-100.0)
[2024-05-14 23:25] LABS: Hematocrit 24.5 % (42.0-52.0); Hemoglobin 7.7 g/dL (14.0-18.0); Mean Corpuscular HGB CONC 31.4 g/dL (32.0-36.0); Mean Corpuscular Volume 95.3 fL (78.0-98.0); Mean Platelet Volume 10.1 fL (7.4-10.4); Platelet Count 226 10x3/uL (130-400); RBC Distribution Width 15.5 % (11.5-14.5); Red Blood Cell (RBC) Count 2.57 mill/uL (4.70-6.10)
[2024-05-14 23:26] LABS: Puncture Site RR
[2024-05-14 23:37] LABS: INR-International Normal Ratio 1.2; Prothrombin Time 15.6 sec (12.0-14.7)
[2024-05-14 23:38] LABS: PTT 39.9 sec (22.9-36.1)
[2024-05-14 23:39] LABS: Troponin I 0.035 ng/mL (< 0.028)
[2024-05-14 23:43] LABS: Band 1 % (5-11); Eosinophils 8 % (0-10); Lymphocytes 21 % (21-51); Metamyelocyte 1 % (0-0); Monocytes 8 % (0-10); Myelocyte 2 % (0-0); Neutrophil 59 % (42-75); Nucleated RBC (Manual Ct) 2 % (0); Platelet Adequacy Comment Platelets Normal; Polychromasia SLIGHT = 2-3 cells HPF (0-2)
[2024-05-14 23:50] LABS: Bacteria/HPF None Seen HPF (None Seen); Bilirubin Negative (Negative); Blood, Urine Negative (Negative); CAUTI Indications for Culture Alt mental st,lethar; Clarity Clear (Clear); Glucose, Urine (Dipstick) 70 mg/dL (Negative); Ketone, Urine Negative (Negative); Leukocyte Negative Leu/uL (Negative); Nitrite Negative (Negative); Protein, Urine (Dipstick) 300 mg/dL (Neg-Trace); RBC/HPF 0-3 HPF (0-3); Specific Gravity, Urine 1.007 (1.002-1.036); Squamous Epithelial None Seen HPF (0-3); Urobilinogen Normal mg/dL (Less than 2)
[2024-05-14 23:52] LABS: Urine Culture Reflex No No
[2024-05-14] MEDS ORDERED: Vasopressin 20 UNITS/ML VIAL ONE (23:52)
[2024-05-14] MEDS ORDERED: Insulin Regular, Human 100 UNIT/ML 10 ML VIAL ONE (23:53)
[2024-05-15] MEDS ORDERED: Phenylephrine 10 MG/ML VIAL ONE (00:04)
[2024-05-15] MEDS ORDERED: EPINEPHrine 1 MG/ML VIAL ONE (00:06)
[2024-05-15 00:09] LABS: ALT (SGPT) 203 U/L (8-55); AST (SGOT) 424 U/L (5-34); Albumin 1.9 g/dL (3.5-5.0); Alkaline Phosphatase 122 U/L (40-110); Anion Gap 29 mmol/L (10-20); BUN (Urea Nitrogen) 78 mg/dL (8.9-20.6); Bilirubin, Total 0.7 mg/dL (0.2-1.2); Calc. Creatinine Clearance 0 mL/min (70-130); Calcium 8.8 mg/dL (7.8-10.44); Carbon Dioxide 13 mmol/L (22-29); Chloride 94 mmol/L (98-107); Estimated GFR 4; Globulin 3.8 g/dL (2.4-3.5); Glucose 160 mg/dL (70-105); Potassium 7.6 mmol/L (3.5-5.1); Protein, Total 5.7 g/dL (6.0-8.3); Sodium 128 mmol/L (136-145)
[2024-05-15] MEDS ORDERED: Dextrose 5% in Water 1,000 ML IV PRN (01:14)
[2024-05-15] MEDS ORDERED: Glucagon 1 MG/ML KIT IM PRN (01:14)
[2024-05-15] MEDS ORDERED: Vancomycin 1 GM/200 ML (FROZEN) BAG ONE (01:19)
[2024-05-15] MEDS ORDERED: Hydrocortisone Sod Succ/PF 100 mg/2 ml Vial ONE (01:19)
[2024-05-15] MEDS ORDERED: Cefepime 1 GM in Sodium Chloride 0.9% 100 ML IVPB SCH (02:00)
[2024-05-15 02:10] LABS: Lactic Acid 3.93 mmol/L (0.5-2.2)
[2024-05-15] MEDS ORDERED: Ventilator Sedation Protocol 1 EACH FS SCH (02:30)
[2024-05-15] MEDS ORDERED: Fentanyl BOLUS 250 ML IVPB PRN (03:00)
[2024-05-15] MEDS ORDERED: Fentanyl CADD 100 ML IV SCH (03:00)
[2024-05-15] MEDS ORDERED: Propofol BOLUS 1,000 MG/100 ML VIAL IV PRN (03:00)
[2024-05-15] MEDS ORDERED: DISCONTINUE PREVIOUS NARCOTIC PAIN MEDICATIONS AND BENZODIAZEPINES FS SCH (03:00)
[2024-05-15] MEDS: Lorazepam 2 MG/ML VIAL SLOW IVP PRN (03:01)
[2024-05-15] MEDS: Lorazepam 2 MG/ML VIAL ONE (03:01)
[2024-05-15] MEDS ORDERED: Vasopressin 20 UNITS in Sodium Chloride 0.9% 50 ML IV SCH (03:15)
[2024-05-15 03:18] LABS: Troponin I 0.071 ng/mL (< 0.028)
[2024-05-15] MEDS ORDERED: Vasopressin In 0.9 % NaCl 40 UNIT in Premix 1 BAG IV SCH (03:30)
[2024-05-15] MEDS: NOREPINEPHRINE 8 MG/250 ML-D5W 250 ML IVPB SCH (03:44)
[2024-05-15] MEDS: NOREPINEPHRINE 8 MG/250 ML-D5W 250 ML ONE (03:45)
[2024-05-15] MEDS: Sodium Bicarbonate 100 MEQ in Sodium Chloride 0.45% 1,000 ML IV SCH (03:46)
[2024-05-15] MEDS: LOKELMA 10 GM PACKET PO SCH (03:46)
[2024-05-15] MEDS: Sodium Bicarbonate 150 MEQ in Dextrose 5% in Water 1,000 ML IV SCH (04:29)
[2024-05-15] MEDS: Meropenem 500 MG in Sodium Chloride 0.9% 100 ML IVPB SCH (05:07)
[2024-05-15] MEDS: Albumin 25% 25 GM (100 mL) BOT IVPB SCH (05:07)
[2024-05-15] MEDS: Hydrocortisone Sod Succ/PF 100 mg/2 ml Vial IVP SCH ×3 (05:07→22:07)
[2024-05-15 05:44] LABS: #Basophils 0.05 10x3/uL (0.0-0.2); %Basophils 0.3 % (0.0-1.0); %Eosinophils 0.2 % (0.0-10.0); %Lymphocytes 1.7 % (21.0-51.0); %Monocytes 6.4 % (0.0-10.0); %Neutrophils 89.9 % (42.0-75.0); Hematocrit 27.5 % (42.0-52.0); Hemoglobin 9.4 g/dL (14.0-18.0); Mean Corpuscular HGB CONC 34.2 g/dL (32.0-36.0); Mean Corpuscular Hemoglobin 29.4 pg (27.0-31.0); Mean Corpuscular Volume 85.9 fL (78.0-98.0); Mean Platelet Volume 9.5 fL (7.4-10.4); Platelet Count 272 10x3/uL (130-400); RBC Distribution Width 16.4 % (11.5-14.5)
[2024-05-15 06:14] LABS: ALT (SGPT) 417 U/L (8-55); AST (SGOT) 1094 U/L (5-34); Albumin 2.1 g/dL (3.5-5.0); Alkaline Phosphatase 193 U/L (40-110); Anion Gap 26 mmol/L (10-20); BUN (Urea Nitrogen) 78 mg/dL (8.9-20.6); Calc. Creatinine Clearance 10 mL/min (70-130); Calcium 8.4 mg/dL (7.8-10.44); Carbon Dioxide 18 mmol/L (22-29); Chloride 90 mmol/L (98-107); Estimated GFR 5; Globulin 4.1 g/dL (2.4-3.5); Glucose 146 mg/dL (70-105); Potassium 5.1 mmol/L (3.5-5.1); Protein, Total 6.2 g/dL (6.0-8.3); Sodium 129 mmol/L (136-145)
[2024-05-15 06:17] LABS: Troponin I 0.103 ng/mL (< 0.028)
[2024-05-15 08:39] LABS: Actual Bicarbonate (HCO3a) 21.1 mEq/L (22-28); Base Excess (BEa) -1.5 mEq/L (-2.0 to +3.0); CO2 Tension 27.7 mmHg (35.0-45.0); Calcium, Ionized (arterial) 1.01 mmol/L (1.12-1.30); Carboxyhemoglobin (COHb) 0.9 gm% (0.0-3.0); Hematocrit-ABG 26 % (42.0-52.0); Hemoglobin (Hb) 8.7 g/dL (14.0-18.0); O2 Tension (PaO2), arterial 302.4 mmHg (80.0-100.0); Potassium - ABG Lab 4.31 mmol/L (3.70-5.30)
[2024-05-15 08:50] LABS: ALV-art Gradient 375.975 mmHg (0-20); Puncture Site Left Brachial artery
[2024-05-15] MEDS: Linezolid 600 MG in Premix 1 BAG IVPB SCH (09:17)
[2024-05-15] MEDS: Pantoprazole 40 MG VIAL IVP SCH (09:18)
[2024-05-15] MEDS: Voriconazole 50 MG TAB PO SCH (09:18)
[2024-05-15] MEDS: Insulin Lispro 100 UNIT/ML 10 ML VIAL SC PRN (09:19)
[2024-05-15 10:08] LABS: Lactic Acid 1.67 mmol/L (0.5-2.2)
[2024-05-15] MEDS: EPOETIN ALFA-EPBX (ESRD) 10,000 UNITS/ML VIAL SC SCH (15:45)
[2024-05-15] MEDS: Fentanyl CADD 100 ML IV SCH (17:50)
[2024-05-15] MEDS: Propofol 1,000 MG/100 ML VIAL IV PRN (17:50)
[2024-05-15 18:33] LABS: Anion Gap 22 mmol/L (10-20); BUN (Urea Nitrogen) 76 mg/dL (8.9-20.6); Calc. Creatinine Clearance 11 mL/min (70-130); Calcium 7.9 mg/dL (7.8-10.44); Carbon Dioxide 21 mmol/L (22-29); Chloride 91 mmol/L (98-107); Estimated GFR 5; Glucose 53 mg/dL (70-105); Potassium 4.6 mmol/L (3.5-5.1); Sodium 129 mmol/L (136-145)
[2024-05-15] MEDS: Dextrose 50% Abboject 50 ML SYRINGE SLOW IVP PRN (18:53)
[2024-05-16 05:13] LABS: #Basophils 0.03 10x3/uL (0.0-0.2); %Basophils 0.2 % (0.0-1.0); %Eosinophils 0.3 % (0.0-10.0); %Lymphocytes 5.8 % (21.0-51.0); %Monocytes 7.8 % (0.0-10.0); %Neutrophils 85.3 % (42.0-75.0); Hematocrit 19.7 % (42.0-52.0); Hemoglobin 6.8 g/dL (14.0-18.0); Mean Corpuscular HGB CONC 34.5 g/dL (32.0-36.0); Mean Corpuscular Hemoglobin 29.4 pg (27.0-31.0); Mean Corpuscular Volume 85.3 fL (78.0-98.0); Mean Platelet Volume 9.7 fL (7.4-10.4); Platelet Count 167 10x3/uL (130-400); Red Blood Cell (RBC) Count 2.31 mill/uL (4.70-6.10)
[2024-05-16 05:16] LABS: ALT (SGPT) 209 U/L (8-55); AST (SGOT) 245 U/L (5-34); Albumin 2.2 g/dL (3.5-5.0); Alkaline Phosphatase 103 U/L (40-110); Anion Gap 21 mmol/L (10-20); BUN (Urea Nitrogen) 74 mg/dL (8.9-20.6); Bilirubin, Total 0.6 mg/dL (0.2-1.2); Calc. Creatinine Clearance 11 mL/min (70-130); Calcium 7.6 mg/dL (7.8-10.44); Carbon Dioxide 21 mmol/L (22-29); Chloride 90 mmol/L (98-107); Estimated GFR 5; Globulin 2.8 g/dL (2.4-3.5); Glucose 103 mg/dL (70-105); Potassium 4.1 mmol/L (3.5-5.1); Sodium 128 mmol/L (136-145)
[2024-05-16 08:04] LABS: Actual Bicarbonate (HCO3a) 25.6 mEq/L (22-28); Base Excess (BEa) 1.4 mEq/L (-2.0 to +3.0); CO2 Tension 38.5 mmHg (35.0-45.0); Calcium, Ionized (arterial) 0.97 mmol/L (1.12-1.30); Carboxyhemoglobin (COHb) 1.3 gm% (0.0-3.0); Hematocrit-ABG 23 % (42.0-52.0); Hemoglobin (Hb) 7.8 g/dL (14.0-18.0); O2 Tension (PaO2), arterial 63.1 mmHg (80.0-100.0); Potassium - ABG Lab 4.29 mmol/L (3.70-5.30); pH, Arterial 7.441 (7.35-7.45)
[2024-05-16 08:05] LABS: Puncture Site Right Radial artery
[2024-05-16 08:06] LABS: ALV-art Gradient 173.975 mmHg (0-20)
[2024-05-16] MEDS: Dexmedetomidine In 0.9 % NaCl 100 ML IV SCH (11:37)
[2024-05-16] MEDS: Dexmedetomidine In 0.9 % NaCl 100 ML ONE (11:38)
[2024-05-16 12:31] LABS: #Basophils Less than 0.03 10x3/uL (0.0-0.2); %Basophils 0.1 % (0.0-1.0); %Eosinophils 0.2 % (0.0-10.0); %Lymphocytes 2.5 % (21.0-51.0); %Monocytes 6.8 % (0.0-10.0); %Neutrophils 89.5 % (42.0-75.0); Hematocrit 22.3 % (42.0-52.0); Hemoglobin 7.7 g/dL (14.0-18.0); Mean Corpuscular HGB CONC 34.5 g/dL (32.0-36.0); Mean Corpuscular Volume 86.8 fL (78.0-98.0); Mean Platelet Volume 9.9 fL (7.4-10.4); Platelet Count 167 10x3/uL (130-400); RBC Distribution Width 17.1 % (11.5-14.5); Red Blood Cell (RBC) Count 2.57 mill/uL (4.70-6.10)
[2024-05-16 12:50] LABS: Glucose 109 mg/dL (70-105)
[2024-05-16] MEDS: Acetaminophen/Codeine 30-300mg Tablet PO PRN (14:10)
[2024-05-17 05:34] LABS: #Basophils 0.03 10x3/uL (0.0-0.2); %Basophils 0.3 % (0.0-1.0); %Eosinophils 0.9 % (0.0-10.0); %Lymphocytes 7.5 % (21.0-51.0); %Monocytes 8.8 % (0.0-10.0); %Neutrophils 81.9 % (42.0-75.0); Hematocrit 21.6 % (42.0-52.0); Hemoglobin 7.4 g/dL (14.0-18.0); Mean Corpuscular HGB CONC 34.3 g/dL (32.0-36.0); Mean Corpuscular Hemoglobin 29.6 pg (27.0-31.0); Mean Corpuscular Volume 86.4 fL (78.0-98.0); Mean Platelet Volume 10.5 fL (7.4-10.4); Platelet Count 147 10x3/uL (130-400); RBC Distribution Width 16.5 % (11.5-14.5)
[2024-05-17 06:16] LABS: ALT (SGPT) 148 U/L (8-55); AST (SGOT) 89 U/L (5-34); Albumin 2.1 g/dL (3.5-5.0); Alkaline Phosphatase 99 U/L (40-110); Anion Gap 20 mmol/L (10-20); BUN (Urea Nitrogen) 72 mg/dL (8.9-20.6); Bilirubin, Total 0.6 mg/dL (0.2-1.2); Calc. Creatinine Clearance 12 mL/min (70-130); Calcium 7.5 mg/dL (7.8-10.44); Carbon Dioxide 22 mmol/L (22-29); Chloride 89 mmol/L (98-107); Estimated GFR 6; Globulin 3.2 g/dL (2.4-3.5); Glucose 201 mg/dL (70-105); Potassium 4.1 mmol/L (3.5-5.1); Protein, Total 5.3 g/dL (6.0-8.3); Sodium 127 mmol/L (136-145)
[2024-05-17] MEDS: Acetaminophen 325 MG TAB PER TUBE PRN (08:50)
[2024-05-17] MEDS: Ipratropium/Albuterol 3 ML NEB NEB SCH (14:23)
[2024-05-18 05:50] LABS: #Basophils 0.06 10x3/uL (0.0-0.2); %Basophils 0.5 % (0.0-1.0); %Lymphocytes 8.1 % (21.0-51.0); %Monocytes 10.6 % (0.0-10.0); %Neutrophils 73.9 % (42.0-75.0); Hematocrit 23.9 % (42.0-52.0); Mean Corpuscular HGB CONC 33.5 g/dL (32.0-36.0); Mean Corpuscular Hemoglobin 29.5 pg (27.0-31.0); Mean Corpuscular Volume 88.2 fL (78.0-98.0); Mean Platelet Volume 9.8 fL (7.4-10.4); Platelet Count 210 10x3/uL (130-400); RBC Distribution Width 16.6 % (11.5-14.5); Red Blood Cell (RBC) Count 2.71 mill/uL (4.70-6.10)
[2024-05-18 06:12] LABS: ALT (SGPT) 100 U/L (8-55); AST (SGOT) 45 U/L (5-34); Albumin 2.1 g/dL (3.5-5.0); Alkaline Phosphatase 101 U/L (40-110); Anion Gap 20 mmol/L (10-20); BUN (Urea Nitrogen) 72 mg/dL (8.9-20.6); Bilirubin, Total 0.7 mg/dL (0.2-1.2); Calc. Creatinine Clearance 12 mL/min (70-130); Calcium 7.3 mg/dL (7.8-10.44); Carbon Dioxide 23 mmol/L (22-29); Chloride 92 mmol/L (98-107); Estimated GFR 5; Globulin 3.5 g/dL (2.4-3.5); Glucose 112 mg/dL (70-105); Potassium 3.9 mmol/L (3.5-5.1); Protein, Total 5.6 g/dL (6.0-8.3); Sodium 131 mmol/L (136-145)
[2024-05-18] MEDS: Morphine 2 MG/ML VIAL SLOW IVP PRN (06:39)
[2024-05-18] MEDS ORDERED: Ipratropium/Albuterol 3 ML NEB NEB PRN (08:01)
[2024-05-19 05:59] LABS: #Basophils 0.06 10x3/uL (0.0-0.2); %Basophils 0.6 % (0.0-1.0); %Lymphocytes 7.9 % (21.0-51.0); %Neutrophils 70.5 % (42.0-75.0); Hematocrit 27.1 % (42.0-52.0); Hemoglobin 9.4 g/dL (14.0-18.0); Mean Corpuscular HGB CONC 34.7 g/dL (32.0-36.0); Mean Corpuscular Hemoglobin 29.9 pg (27.0-31.0); Mean Corpuscular Volume 86.3 fL (78.0-98.0); Mean Platelet Volume 9.6 fL (7.4-10.4); Platelet Count 212 10x3/uL (130-400); RBC Distribution Width 15.9 % (11.5-14.5); Red Blood Cell (RBC) Count 3.14 mill/uL (4.70-6.10)
[2024-05-19 06:21] LABS: Anion Gap 22 mmol/L (10-20); BUN (Urea Nitrogen) 73 mg/dL (8.9-20.6); Calc. Creatinine Clearance 12 mL/min (70-130); Calcium 7.6 mg/dL (7.8-10.44); Carbon Dioxide 22 mmol/L (22-29); Chloride 92 mmol/L (98-107); Estimated GFR 5; Glucose 81 mg/dL (70-105); Potassium 4.1 mmol/L (3.5-5.1); Sodium 132 mmol/L (136-145)
[2024-05-19] MEDS: Clopidogrel Bisulfate 75 MG TAB PO SCH (09:58)
[2024-05-19] MEDS: Carvedilol 6.25 MG TAB PO SCH (09:58)
[2024-05-19] MEDS ORDERED: methylPREDNISolone Sod Succ 40 MG VIAL IVP SCH (23:15)
[2024-05-19] MEDS: Famotidine/PF 20 mg/2ml Vial SLOW IVP SCH (23:56)
[2024-05-19] MEDS: diphenhydrAMINE 50 MG/ML VIAL IVP SCH (23:56)
[2024-05-19] MEDS: methylPREDNISolone Sod Succ/PF 125 MG/2 ML VIAL IVP SCH (23:56)
[2024-05-20 00:33] LABS: Troponin I 0.056 ng/mL (< 0.028)
[2024-05-20] MEDS: diphenhydrAMINE 25 MG CAP PO SCH (00:44)
[2024-05-20 04:58] LABS: #Basophils 0.03 10x3/uL (0.0-0.2); #Eosinophils Less than 0.03 10x3/uL (0.0-0.7); %Basophils 0.4 % (0.0-1.0); %Eosinophils 0.3 % (0.0-10.0); %Lymphocytes 3.2 % (21.0-51.0); %Neutrophils 92.1 % (42.0-75.0); Hematocrit 25.4 % (42.0-52.0); Hemoglobin 8.8 g/dL (14.0-18.0); Mean Corpuscular HGB CONC 34.6 g/dL (32.0-36.0); Mean Corpuscular Hemoglobin 29.6 pg (27.0-31.0); Mean Corpuscular Volume 85.5 fL (78.0-98.0); Mean Platelet Volume 9.6 fL (7.4-10.4); Platelet Count 180 10x3/uL (130-400); RBC Distribution Width 15.8 % (11.5-14.5); Red Blood Cell (RBC) Count 2.97 mill/uL (4.70-6.10)
[2024-05-20 05:10] LABS: Anion Gap 22 mmol/L (10-20); BUN (Urea Nitrogen) 71 mg/dL (8.9-20.6); Calc. Creatinine Clearance 10 mL/min (70-130); Calcium 7.7 mg/dL (7.8-10.44); Carbon Dioxide 21 mmol/L (22-29); Chloride 92 mmol/L (98-107); Estimated GFR 6; Glucose 155 mg/dL (70-105); Sodium 131 mmol/L (136-145)
[2024-05-20] MEDS ORDERED: Iopamidol-370 76% 500 ML MDV (1 ML CHARGE) ONE (10:21)
[2024-05-20] MEDS: methylPREDNISolone Sod Succ/PF 125 MG/2 ML VIAL IVP SCH (13:39)
[2024-05-20] MEDS: Racepinephrine 2.25% 0.5 ML NEB NEB SCH (13:51)
[2024-05-20] MEDS ORDERED: Ranolazine ER 500 MG TAB PO SCH (21:00)
[2024-05-20] MEDS: hydrALAZINE 20 MG/ML VIAL SLOW IVP SCH (21:58)
[2024-05-21] MEDS: Insulin Lispro 100 UNIT/ML 10 ML VIAL SC PRN (00:28)
[2024-05-21 05:06] LABS: #Basophils Less than 0.03 10x3/uL (0.0-0.2); #Eosinophils Less than 0.03 10x3/uL (0.0-0.7); %Basophils 0.2 % (0.0-1.0); %Lymphocytes 7.4 % (21.0-51.0); %Monocytes 7.9 % (0.0-10.0); %Neutrophils 81.8 % (42.0-75.0); Hematocrit 28.6 % (42.0-52.0); Hemoglobin 9.8 g/dL (14.0-18.0); Mean Corpuscular HGB CONC 34.3 g/dL (32.0-36.0); Mean Corpuscular Hemoglobin 29.9 pg (27.0-31.0); Mean Corpuscular Volume 87.2 fL (78.0-98.0); Mean Platelet Volume 9.8 fL (7.4-10.4); Platelet Count 213 10x3/uL (130-400); RBC Distribution Width 15.8 % (11.5-14.5); Red Blood Cell (RBC) Count 3.28 mill/uL (4.70-6.10)
[2024-05-21 05:20] LABS: ALT (SGPT) 29 U/L (8-55); AST (SGOT) 16 U/L (5-34); Albumin 2.2 g/dL (3.5-5.0); Alkaline Phosphatase 102 U/L (40-110); Anion Gap 21 mmol/L (10-20); BUN (Urea Nitrogen) 80 mg/dL (8.9-20.6); Bilirubin, Total 0.6 mg/dL (0.2-1.2); Calc. Creatinine Clearance 9 mL/min (70-130); Calcium 8.5 mg/dL (7.8-10.44); Carbon Dioxide 22 mmol/L (22-29); Chloride 91 mmol/L (98-107); Estimated GFR 5; Glucose 220 mg/dL (70-105); Potassium 4.2 mmol/L (3.5-5.1); Protein, Total 6.2 g/dL (6.0-8.3); Sodium 130 mmol/L (136-145)
[2024-05-21] MEDS ORDERED: Clopidogrel Bisulfate 75 MG TAB PO SCH (09:00)
[2024-05-21] MEDS: Isosorbide Mononitrate 60 MG ER.TAB PO SCH (09:08)
[2024-05-21] MEDS ORDERED: [UNRECOGNIZED DRUG - OTHER] FS PRN (09:34)
[2024-05-21] MEDS ORDERED: HEPARIN FS PRN ×2 (09:34)
[2024-05-21] MEDS ORDERED: [UNRECOGNIZED DRUG - OTHER] FS PRN (09:34)
[2024-05-21] MEDS ORDERED: ADMIXTURE FEE FS PRN ×2 (09:34)
[2024-05-22 06:13] LABS: Troponin I 0.034 ng/mL (< 0.028)
[2024-05-22] MEDS: NIFEdipine XL 60 MG ER.TAB PO SCH (09:42)
[2024-05-22] MEDS: Calcium Acetate 667 MG CAP PO SCH (09:42)
[2024-05-22] MEDS: Ezetimibe 10 MG TAB PO SCH (09:42)
[2024-05-22 16:37] LABS: #Basophils 0.03 10x3/uL (0.0-0.2); %Basophils 0.2 % (0.0-1.0); %Eosinophils 0.3 % (0.0-10.0); %Lymphocytes 11.8 % (21.0-51.0); %Monocytes 11.6 % (0.0-10.0); %Neutrophils 71.4 % (42.0-75.0); Hematocrit 25.8 % (42.0-52.0); Hemoglobin 8.8 g/dL (14.0-18.0); Mean Corpuscular HGB CONC 34.1 g/dL (32.0-36.0); Mean Corpuscular Volume 88.1 fL (78.0-98.0); Mean Platelet Volume 9.8 fL (7.4-10.4); Platelet Count 193 10x3/uL (130-400); RBC Distribution Width 15.8 % (11.5-14.5); Red Blood Cell (RBC) Count 2.93 mill/uL (4.70-6.10)
[2024-05-22 16:47] LABS: Lactic Acid 1.59 mmol/L (0.5-2.2)
[2024-05-22 16:52] LABS: ALT (SGPT) 22 U/L (8-55); AST (SGOT) 19 U/L (5-34); Albumin 2.1 g/dL (3.5-5.0); Alkaline Phosphatase 111 U/L (40-110); Anion Gap 23 mmol/L (10-20); BUN (Urea Nitrogen) 83 mg/dL (8.9-20.6); Bilirubin, Total 0.4 mg/dL (0.2-1.2); Calc. Creatinine Clearance 9 mL/min (70-130); Calcium 7.6 mg/dL (7.8-10.44); Carbon Dioxide 21 mmol/L (22-29); Chloride 92 mmol/L (98-107); Estimated GFR 5; Globulin 3.3 g/dL (2.4-3.5); Glucose 122 mg/dL (70-105); Potassium 3.7 mmol/L (3.5-5.1); Protein, Total 5.4 g/dL (6.0-8.3); Sodium 132 mmol/L (136-145)
[2024-05-22 16:57] LABS: Troponin I 0.038 ng/mL (< 0.028)
[2024-05-22] MEDS ORDERED: hydrALAZINE 25 MG TAB PO SCH (17:00)
[2024-05-22] MEDS: NOREPINEPHRINE 8 MG/250 ML-D5W 250 ML ONE (17:00)
[2024-05-22] MEDS: Sodium Chloride 0.9% 500 ML IV SCH (17:00)
[2024-05-22] MEDS: Albumin 25% 25 GM (100 mL) BOT IVPB SCH (18:16)
[2024-05-22] MEDS ORDERED: NOREPINEPHRINE 8 MG/250 ML-D5W 250 ML IVPB SCH (21:30)
[2024-05-23 04:48] LABS: #Basophils 0.03 10x3/uL (0.0-0.2); %Basophils 0.2 % (0.0-1.0); %Eosinophils 1.7 % (0.0-10.0); %Lymphocytes 12.5 % (21.0-51.0); %Monocytes 14.4 % (0.0-10.0); %Neutrophils 66.3 % (42.0-75.0); Hematocrit 25.2 % (42.0-52.0); Hemoglobin 8.8 g/dL (14.0-18.0); Mean Corpuscular HGB CONC 34.9 g/dL (32.0-36.0); Mean Corpuscular Hemoglobin 29.6 pg (27.0-31.0); Mean Corpuscular Volume 84.8 fL (78.0-98.0); Mean Platelet Volume 9.5 fL (7.4-10.4); Platelet Count 219 10x3/uL (130-400); RBC Distribution Width 15.3 % (11.5-14.5); Red Blood Cell (RBC) Count 2.97 mill/uL (4.70-6.10)
[2024-05-23 05:01] LABS: Sodium 130 mmol/L (136-145)
[2024-05-23 05:02] LABS: Anion Gap 20 mmol/L (10-20); BUN (Urea Nitrogen) 72 mg/dL (8.9-20.6); Calc. Creatinine Clearance 10 mL/min (70-130); Calcium 7.6 mg/dL (7.8-10.44); Carbon Dioxide 22 mmol/L (22-29); Chloride 91 mmol/L (98-107); Estimated GFR 5; Glucose 161 mg/dL (70-105); Potassium 3.4 mmol/L (3.5-5.1)
[2024-05-23] MEDS: Potassium Bicarbonate/Cit Ac 20 MEQ TAB PO SCH (12:14)
[2024-05-24 03:53] LABS: Hematocrit 23.1 % (42.0-52.0); Hemoglobin 7.9 g/dL (14.0-18.0); Mean Corpuscular HGB CONC 34.2 g/dL (32.0-36.0); Mean Corpuscular Hemoglobin 29.3 pg (27.0-31.0); Mean Corpuscular Volume 85.6 fL (78.0-98.0); Mean Platelet Volume 9.6 fL (7.4-10.4); Platelet Count 165 10x3/uL (130-400); RBC Distribution Width 15.6 % (11.5-14.5)
[2024-05-24 04:01] LABS: Anion Gap 21 mmol/L (10-20); BUN (Urea Nitrogen) 76 mg/dL (8.9-20.6); Calc. Creatinine Clearance 10 mL/min (70-130); Calcium 7.5 mg/dL (7.8-10.44); Carbon Dioxide 23 mmol/L (22-29); Chloride 92 mmol/L (98-107); Estimated GFR 5; Glucose 115 mg/dL (70-105); Potassium 3.7 mmol/L (3.5-5.1); Sodium 132 mmol/L (136-145)
[2024-05-24 05:22] LABS: Hypochromia SLIGHT = 6-15 cells HPF (0-5); Lymphocytes 11 % (21-51); Metamyelocyte 5 % (0-0); Microcytosis SLIGHT = 6-15 cells HPF (0-5); Monocytes 3 % (0-10); Neutrophil 81 % (42-75); Ovalocytes SLIGHT = 2-5 cells HPF (0-1); Platelet Adequacy Comment Platelets Normal; Polychromasia SLIGHT = 2-3 cells HPF (0-2)
[2024-05-24 06:15] VITALS: BMI 25.0
[2024-05-25 05:16] LABS: Anion Gap 22 mmol/L (10-20); BUN (Urea Nitrogen) 72 mg/dL (8.9-20.6); Calc. Creatinine Clearance 10 mL/min (70-130); Calcium 7.9 mg/dL (7.8-10.44); Carbon Dioxide 24 mmol/L (22-29); Chloride 90 mmol/L (98-107); Estimated GFR 5; Glucose 120 mg/dL (70-105); Potassium 3.6 mmol/L (3.5-5.1); Sodium 132 mmol/L (136-145)
[2024-05-25 12:19] LABS: Troponin I 0.049 ng/mL (< 0.028)
[2024-05-26 03:57] LABS: #Basophils 0.03 10x3/uL (0.0-0.2); %Basophils 0.3 % (0.0-1.0); %Eosinophils 6.3 % (0.0-10.0); %Lymphocytes 12.8 % (21.0-51.0); %Monocytes 8.2 % (0.0-10.0); %Neutrophils 68.8 % (42.0-75.0); Hematocrit 24.8 % (42.0-52.0); Hemoglobin 8.6 g/dL (14.0-18.0); Mean Corpuscular HGB CONC 34.7 g/dL (32.0-36.0); Mean Corpuscular Hemoglobin 30.1 pg (27.0-31.0); Mean Corpuscular Volume 86.7 fL (78.0-98.0); Mean Platelet Volume 9.4 fL (7.4-10.4); Platelet Count 182 10x3/uL (130-400); RBC Distribution Width 15.3 % (11.5-14.5); Red Blood Cell (RBC) Count 2.86 mill/uL (4.70-6.10)
[2024-05-26 04:11] LABS: ALT (SGPT) 9 U/L (8-55); AST (SGOT) 14 U/L (5-34); Albumin 2.3 g/dL (3.5-5.0); Alkaline Phosphatase 124 U/L (40-110); Anion Gap 23 mmol/L (10-20); BUN (Urea Nitrogen) 75 mg/dL (8.9-20.6); Bilirubin, Total 0.4 mg/dL (0.2-1.2); Calc. Creatinine Clearance 10 mL/min (70-130); Calcium 8.1 mg/dL (7.8-10.44); Carbon Dioxide 22 mmol/L (22-29); Chloride 92 mmol/L (98-107); Estimated GFR 5; Globulin 3.4 g/dL (2.4-3.5); Glucose 107 mg/dL (70-105); Potassium 3.6 mmol/L (3.5-5.1); Protein, Total 5.7 g/dL (6.0-8.3); Sodium 133 mmol/L (136-145)
[2024-05-26] MEDS: XPHOZAH PO SCH (19:55)
[2024-05-27 15:44] VITALS: BMI 25.0
[2024-05-28 12:30] VITALS: BP 124/61; TEMP 97.8
[2024-06-01 11:08] LABS: pH, Arterial 7.048 (7.35-7.45)
[2024-06-01 11:09] LABS: Actual Bicarbonate (HCO3a) 14.9 mEq/L (22-28); Potassium - ABG Lab 7.04 mmol/L (3.70-5.30)
== END 2024-05-28 14:34 | DRG 640 ==
LOC: ERS 22:52 → CCU 05-15 02:26 → IMCU/EMU 05-17 12:08 → MSONC 05-19 15:14 → CCU 05-22 16:44 → 2NO 05-23 09:06
PROVIDERS: ADMIT Internal Medicine; ATTEND Family Medicine
PROC: 0BH17EZ Insertion of Endotracheal Airway into Trachea, Via Natural or Artificial Opening (ICD-10-PCS; principal; 2024-05-15)
PROC: 5A1945Z Respiratory Ventilation, 24-96 Consecutive Hours (ICD-10-PCS; 2024-05-15)
PROC: 30233N1 Transfusion of Nonautologous Red Blood Cells into Peripheral Vein, Percutaneous Approach (ICD-10-PCS; 2024-05-15)
DX: E87.5 Hyperkalemia (principal); I46.8 Cardiac arrest due to other underlying condition; J96.01 Acute respiratory failure with hypoxia; R57.0 Cardiogenic shock; N18.6 End stage renal disease; K72.00 Acute and subacute hepatic failure without coma; R57.1 Hypovolemic shock; I13.2 Hypertensive heart and chronic kidney disease with heart failure and with stage 5 chronic kidney disease, or end stage renal disease; I50.32 Chronic diastolic (congestive) heart failure; E87.20 Acidosis, unspecified; I25.10 Atherosclerotic heart disease of native coronary artery without angina pectoris; E87.1 Hypo-osmolality and hyponatremia; G89.29 Other chronic pain; M54.9 Dorsalgia, unspecified; D63.8 Anemia in other chronic diseases classified elsewhere; F41.9 Anxiety disorder, unspecified; F43.10 Post-traumatic stress disorder, unspecified; F12.10 Cannabis abuse, uncomplicated; F32.A Depression, unspecified; E11.22 Type 2 diabetes mellitus with diabetic chronic kidney disease; E88.09 Other disorders of plasma-protein metabolism, not elsewhere classified; D72.829 Elevated white blood cell count, unspecified; Z99.2 Dependence on renal dialysis; Z89.612 Acquired absence of left leg above knee; Z88.1 Allergy status to other antibiotic agents; Z88.8 Allergy status to other drugs, medicaments and biological substances; Z88.5 Allergy status to narcotic agent; Z91.041 Radiographic dye allergy status; Z88.0 Allergy status to penicillin; Z91.013 Allergy to seafood; Z95.5 Presence of coronary angioplasty implant and graft; Z86.73 Personal history of transient ischemic attack (TIA), and cerebral infarction without residual deficits; I25.2 Old myocardial infarction
CPT/HCPCS: 31500; 36415; 36416; 36430; 36600; 51702; 70450; 70490; 70496; 70498; 70551; 71045; 71046; 74018; 74230; 80048; 80053; 81001; 82805; 83605; 84484; 85025; 85610; 85730; 86850; 86900; 86901; 87040; 90935; 90945; 92950; 93005; 93010; 93306; 94002; 94003; 94640; 94760; 96365; 96366; 96368; 96375; 97139; 99292; G0257; J0171; J0360; J0461; J1200; J1720; J1815; J2020; J2060; J2185; J2272; J2371; J2470; J2704; J2919; J3010; J3370; J3490; J7030; J7070; J7620; J7999; P9016; P9047; Q5105; Q9967

== ENCOUNTER 2025-01-30 15:20 | Inpatient (IN) | payer MEDICARE ==
[2025-01-30] MEDS ORDERED: diphenhydrAMINE 50 MG/ML VIAL ONE (16:23)
[2025-01-30] MEDS ORDERED: Famotidine/PF 20 mg/2ml Vial ONE (16:24)
[2025-01-30] MEDS ORDERED: Cefepime 2 GM VIAL ONE (16:24)
[2025-01-30 17:11] LABS: Hematocrit 22.6 % (42.0-52.0); Hemoglobin 7.5 g/dL (14.0-18.0); Mean Corpuscular Hemoglobin 30.5 pg (27.0-31.0); Mean Corpuscular Volume 91.9 fL (78.0-98.0); Platelet Count 181 10x3/uL (130-400); Red Blood Cell (RBC) Count 2.46 mill/uL (4.70-6.10); White Blood Cell (WBC) Count 22.71 10x3/uL (4.8-10.8)
[2025-01-30 17:24] LABS: ALT (SGPT) 20 U/L (Less than 45); AST (SGOT) 35 U/L (11-34); Albumin 1.2 g/dL (3.1-4.5); Alkaline Phosphatase 174 U/L (40-110); Anion Gap 20 mmol/L (10-20); BUN (Urea Nitrogen) 106 mg/dL (8.9-20.6); Bilirubin, Total 0.7 mg/dL (0.3-1.2); Calc. Creatinine Clearance 0 mL/min (70-130); Calcium 7.0 mg/dL (7.8-10.44); Carbon Dioxide 18 mmol/L (22-29); Chloride 90 mmol/L (98-107); Globulin 3.6 g/dL (2.4-3.5); Glucose 118 mg/dL (70-105); Potassium 3.4 mmol/L (3.5-5.1); Sodium 125 mmol/L (136-145)
[2025-01-30 17:28] LABS: Anisocytosis SLIGHT = 6-15 cells HPF (0-5); Burr Cells SLIGHT = 2-5 cells HPF (0-1); Macrocytosis SLIGHT = 6-15 cells HPF (0-5); Platelet Adequacy Comment Platelets Normal; Polychromasia SLIGHT = 2-3 cells HPF (0-2); Smudge Cells 1.0 %
[2025-01-30] MEDS ORDERED: LevoFLOXacin 750 mg/D5W 150 ml Premix Bag ONE (17:54)
[2025-01-30] MEDS ORDERED: Aspirin 325 MG TAB ONE (17:54)
[2025-01-30] MEDS: Clindamycin/D5W 900 MG in Premix 1 BAG IVPB SCH (22:30)
[2025-01-30] MEDS ORDERED: Ondansetron PF 4 MG/2 ML Vial IVP PRN (23:38)
[2025-01-30] MEDS ORDERED: Calcium Carbonate 500 MG ChewTAB PO PRN (23:38)
[2025-01-31 00:15] VITALS: BMI 27.0
[2025-01-31] MEDS: Clindamycin/D5W 900 MG in Premix 1 BAG IVPB SCH (01:24)
[2025-01-31] MEDS: Acetaminophen/Codeine 30-300mg Tablet PO PRN (01:24)
[2025-01-31 04:39] LABS: ALT (SGPT) 21 U/L (Less than 45); AST (SGOT) 36 U/L (11-34); Albumin 1.3 g/dL (3.1-4.5); Alkaline Phosphatase 191 U/L (40-110); Anion Gap 23 mmol/L (10-20); BUN (Urea Nitrogen) 115 mg/dL (8.9-20.6); Bilirubin, Total 0.6 mg/dL (0.3-1.2); Calc. Creatinine Clearance 18 mL/min (70-130); Calcium 7.2 mg/dL (7.8-10.44); Carbon Dioxide 16 mmol/L (22-29); Chloride 90 mmol/L (98-107); Globulin 3.8 g/dL (2.4-3.5); Glucose 156 mg/dL (70-105); Potassium 4.1 mmol/L (3.5-5.1); Sodium 125 mmol/L (136-145)
[2025-01-31 05:29] LABS: Hematocrit 23.7 % (42.0-52.0); Hemoglobin 7.7 g/dL (14.0-18.0); Mean Corpuscular Hemoglobin 29.4 pg (27.0-31.0); Mean Corpuscular Volume 90.5 fL (78.0-98.0); Platelet Count 183 10x3/uL (130-400); Red Blood Cell (RBC) Count 2.62 mill/uL (4.70-6.10); White Blood Cell (WBC) Count 27.86 10x3/uL (4.8-10.8)
[2025-01-31 07:14] LABS: Burr Cells SLIGHT = 2-5 cells HPF (0-1); Platelet Adequacy Comment Platelets Normal; Smudge Cells 9.9 %
[2025-01-31] MEDS: Mirtazapine 15 MG TAB PO SCH (08:33)
[2025-01-31] MEDS: Aspirin Chewable 81 MG TAB PO SCH (08:36)
[2025-01-31] MEDS: Carvedilol 6.25 MG TAB PO SCH (08:37)
[2025-01-31] MEDS: Calcitriol 0.25 MCG CAP PO SCH (08:37)
[2025-01-31] MEDS: Isosorbide Mononitrate 60 MG ER.TAB PO SCH (08:38)
[2025-01-31] MEDS: Pantoprazole 40 MG DR.TAB PO SCH (08:39)
[2025-01-31] MEDS: Folic Acid/Vit B Comp W-C PO SCH ×2 (08:39→21:39)
[2025-01-31] MEDS: Losartan 25 MG TAB PO SCH (08:39)
[2025-01-31] MEDS: Ezetimibe 10 MG TAB PO SCH (08:39)
[2025-01-31] MEDS: Thiamine 100 MG TAB PO SCH (08:39)
[2025-01-31] MEDS: levETIRAcetam 500 MG TAB PO SCH (21:39)
[2025-01-31] MEDS: oxyCODONE/Acetaminophen 5 mg/325 mg Tablet PO PRN (21:39)
[2025-02-01 11:13] LABS: Anion Gap 23 mmol/L (10-20); BUN (Urea Nitrogen) 110 mg/dL (8.9-20.6); Calc. Creatinine Clearance 17 mL/min (70-130); Calcium 7.2 mg/dL (7.8-10.44); Carbon Dioxide 17 mmol/L (22-29); Chloride 89 mmol/L (98-107); Glucose 155 mg/dL (70-105); Potassium 4.0 mmol/L (3.5-5.1); Sodium 125 mmol/L (136-145)
[2025-02-01] MEDS: LevoFLOXacin 500 mg/D5W 500 MG in Premix 1 BAG IVPB SCH (17:35)
[2025-02-01] MEDS: Gabapentin 100 MG CAP PO SCH (20:17)
[2025-02-01] MEDS: diphenhydrAMINE 12.5 MG/5 ML UDCUP PO SCH (20:27)
[2025-02-01] MEDS: EPOETIN ALFA-EPBX (ESRD) 10,000 UNITS/ML VIAL SC SCH (22:12)
[2025-02-01] MEDS: CEFAZOLIN 0.5 GM, Admixture Fee 1 EACH in Sodium Chloride 0.9% 100 ML IVPB SCH (22:13)
[2025-02-03 06:25] LABS: #Basophils 0.03 10x3/uL (0.0-0.2); #Eosinophils 0.07 10x3/uL (0.0-0.7); #Monocytes 0.95 10x3/uL (0.11-0.59); #Neutrophils 15.04 10x3/uL (1.40-6.50); %Basophils 0.2 % (0.0-1.0); %Eosinophils 0.4 % (0.0-10.0); %Lymphocytes 6.5 % (21.0-51.0); %Monocytes 5.4 % (0.0-10.0); %Neutrophils 85.4 % (42.0-75.0); Hematocrit 28.3 % (42.0-52.0); Hemoglobin 9.2 g/dL (14.0-18.0); Mean Corpuscular Hemoglobin 29.9 pg (27.0-31.0); Mean Corpuscular Volume 91.9 fL (78.0-98.0); Platelet Count 171 10x3/uL (130-400); Red Blood Cell (RBC) Count 3.08 mill/uL (4.70-6.10); White Blood Cell (WBC) Count 17.61 10x3/uL (4.8-10.8)
[2025-02-03 06:46] LABS: ALT (SGPT) 20 U/L (Less than 45); AST (SGOT) 27 U/L (11-34); Albumin 1.4 g/dL (3.1-4.5); Alkaline Phosphatase 157 U/L (40-110); Anion Gap 23 mmol/L (10-20); BUN (Urea Nitrogen) 105 mg/dL (8.9-20.6); Bilirubin, Total 0.4 mg/dL (0.3-1.2); Calc. Creatinine Clearance 16 mL/min (70-130); Calcium 6.5 mg/dL (7.8-10.44); Carbon Dioxide 22 mmol/L (22-29); Chloride 88 mmol/L (98-107); Globulin 4.0 g/dL (2.4-3.5); Glucose 172 mg/dL (70-105); Potassium 4.0 mmol/L (3.5-5.1); Sodium 129 mmol/L (136-145)
[2025-02-04 05:01] LABS: #Basophils 0.04 10x3/uL (0.0-0.2); #Eosinophils 0.12 10x3/uL (0.0-0.7); #Monocytes 1.08 10x3/uL (0.11-0.59); #Neutrophils 20.00 10x3/uL (1.40-6.50); %Basophils 0.2 % (0.0-1.0); %Eosinophils 0.5 % (0.0-10.0); %Lymphocytes 5.6 % (21.0-51.0); %Monocytes 4.7 % (0.0-10.0); %Neutrophils 87.0 % (42.0-75.0); Hematocrit 27.1 % (42.0-52.0); Hemoglobin 8.7 g/dL (14.0-18.0); Mean Corpuscular Hemoglobin 29.4 pg (27.0-31.0); Mean Corpuscular Volume 91.6 fL (78.0-98.0); Platelet Count 182 10x3/uL (130-400); Red Blood Cell (RBC) Count 2.96 mill/uL (4.70-6.10); White Blood Cell (WBC) Count 22.99 10x3/uL (4.8-10.8)
[2025-02-04 05:43] LABS: Anion Gap 25 mmol/L (10-20); BUN (Urea Nitrogen) 97 mg/dL (8.9-20.6); Calc. Creatinine Clearance 17 mL/min (70-130); Calcium 6.1 mg/dL (7.8-10.44); Carbon Dioxide 20 mmol/L (22-29); Chloride 88 mmol/L (98-107); Glucose 152 mg/dL (70-105); Magnesium 1.7 mg/dL (1.6-2.6); Potassium 4.5 mmol/L (3.5-5.1); Sodium 128 mmol/L (136-145)
[2025-02-04] MEDS: Ibuprofen 200 MG TAB PO SCH (09:54)
[2025-02-05 05:27] LABS: #Basophils 0.03 10x3/uL (0.0-0.2); #Eosinophils 0.17 10x3/uL (0.0-0.7); #Monocytes 1.04 10x3/uL (0.11-0.59); #Neutrophils 21.47 10x3/uL (1.40-6.50); %Basophils 0.1 % (0.0-1.0); %Eosinophils 0.7 % (0.0-10.0); %Lymphocytes 5.6 % (21.0-51.0); %Monocytes 4.2 % (0.0-10.0); %Neutrophils 87.2 % (42.0-75.0); Hematocrit 25.0 % (42.0-52.0); Hemoglobin 7.9 g/dL (14.0-18.0); Mean Corpuscular Hemoglobin 29.5 pg (27.0-31.0); Mean Corpuscular Volume 93.3 fL (78.0-98.0); Platelet Count 153 10x3/uL (130-400); Red Blood Cell (RBC) Count 2.68 mill/uL (4.70-6.10); White Blood Cell (WBC) Count 24.64 10x3/uL (4.8-10.8)
[2025-02-05 06:03] LABS: Anion Gap 23 mmol/L (10-20); BUN (Urea Nitrogen) 104 mg/dL (8.9-20.6); Calc. Creatinine Clearance 17 mL/min (70-130); Calcium 6.2 mg/dL (7.8-10.44); Carbon Dioxide 21 mmol/L (22-29); Chloride 89 mmol/L (98-107); Glucose 139 mg/dL (70-105); Potassium 5.0 mmol/L (3.5-5.1); Sodium 128 mmol/L (136-145)
[2025-02-06] MEDS: Transdermal Patch Removal TOP SCH (06:20)
[2025-02-06 06:37] LABS: Hematocrit 24.2 % (42.0-52.0); Hemoglobin 7.6 g/dL (14.0-18.0); Mean Corpuscular Hemoglobin 29.3 pg (27.0-31.0); Mean Corpuscular Volume 93.4 fL (78.0-98.0); Platelet Count 182 10x3/uL (130-400); Red Blood Cell (RBC) Count 2.59 mill/uL (4.70-6.10); White Blood Cell (WBC) Count 30.16 10x3/uL (4.8-10.8)
[2025-02-06 06:56] LABS: Anion Gap 23 mmol/L (10-20); BUN (Urea Nitrogen) 101 mg/dL (8.9-20.6); Calc. Creatinine Clearance 16 mL/min (70-130); Calcium 6.6 mg/dL (7.8-10.44); Carbon Dioxide 19 mmol/L (22-29); Chloride 90 mmol/L (98-107); Glucose 118 mg/dL (70-105); Magnesium 1.8 mg/dL (1.6-2.6); Potassium 5.2 mmol/L (3.5-5.1); Sodium 127 mmol/L (136-145)
[2025-02-06 07:37] LABS: Anisocytosis SLIGHT = 6-15 cells HPF (0-5); Macrocytosis SLIGHT = 6-15 cells HPF (0-5); Nucleated RBC (Manual Ct) 1 % (0); Platelet Adequacy Comment Platelets Normal; Polychromasia SLIGHT = 2-3 cells HPF (0-2); Smudge Cells 1.0 %
[2025-02-06] MEDS: Ergocalciferol 1.25 MG(50,000 UNITS) CAP PO SCH (11:52)
[2025-02-06] MEDS: Lidocaine-Prilocaine 2.5% Cream 5 GM TUBE TOP SCH (13:19)
[2025-02-06] MEDS: EPOETIN ALFA-EPBX (ESRD) 10,000 UNITS/ML VIAL IVP SCH (13:19)
[2025-02-07 05:53] LABS: Hematocrit 25.2 % (42.0-52.0); Hemoglobin 7.8 g/dL (14.0-18.0); Mean Corpuscular Hemoglobin 29.3 pg (27.0-31.0); Mean Corpuscular Volume 94.7 fL (78.0-98.0); Platelet Count 175 10x3/uL (130-400); Red Blood Cell (RBC) Count 2.66 mill/uL (4.70-6.10); White Blood Cell (WBC) Count 27.01 10x3/uL (4.8-10.8)
[2025-02-07 06:12] LABS: Anion Gap 22 mmol/L (10-20); BUN (Urea Nitrogen) 103 mg/dL (8.9-20.6); Calc. Creatinine Clearance 15 mL/min (70-130); Calcium 6.7 mg/dL (7.8-10.44); Carbon Dioxide 20 mmol/L (22-29); Chloride 89 mmol/L (98-107); Glucose 66 mg/dL (70-105); Potassium 5.3 mmol/L (3.5-5.1); Sodium 126 mmol/L (136-145)
[2025-02-07 06:26] LABS: Anisocytosis SLIGHT = 6-15 cells HPF (0-5); Macrocytosis SLIGHT = 6-15 cells HPF (0-5); Platelet Adequacy Comment Platelets Normal; Polychromasia SLIGHT = 2-3 cells HPF (0-2); Smudge Cells 5.8 %
[2025-02-07] MEDS ORDERED: Lidocaine-Prilocaine 2.5% Cream 5 GM TUBE TOP PRN (08:00)
[2025-02-07] MEDS: Cyclobenzaprine 10 MG TAB PO SCH (08:10)
[2025-02-07] MEDS: Acetaminophen 325 MG TAB PO PRN (08:21)
[2025-02-07] MEDS: EPOETIN ALFA-EPBX (ESRD) 10,000 UNITS/ML VIAL IVP SCH (14:18)
[2025-02-07] MEDS: CEFAZOLIN 0.5 GM, Admixture Fee 1 EACH in Sodium Chloride 0.9% 100 ML IVPB SCH (15:09)
[2025-02-08] MEDS: diphenhydrAMINE 12.5 MG/5 ML UDCUP PO SCH (01:39)
[2025-02-08 06:19] LABS: #Basophils 0.06 10x3/uL (0.0-0.2); #Eosinophils 0.26 10x3/uL (0.0-0.7); #Monocytes 1.53 10x3/uL (0.11-0.59); #Neutrophils 13.74 10x3/uL (1.40-6.50); %Basophils 0.3 % (0.0-1.0); %Eosinophils 1.5 % (0.0-10.0); %Lymphocytes 9.1 % (21.0-51.0); %Monocytes 8.8 % (0.0-10.0); %Neutrophils 78.8 % (42.0-75.0); Hematocrit 23.6 % (42.0-52.0); Hemoglobin 7.3 g/dL (14.0-18.0); Mean Corpuscular Hemoglobin 29.7 pg (27.0-31.0); Mean Corpuscular Volume 95.9 fL (78.0-98.0); Platelet Count 138 10x3/uL (130-400); Red Blood Cell (RBC) Count 2.46 mill/uL (4.70-6.10); White Blood Cell (WBC) Count 17.45 10x3/uL (4.8-10.8)
[2025-02-08 07:17] LABS: Anion Gap 20 mmol/L (10-20); BUN (Urea Nitrogen) 75 mg/dL (8.9-20.6); Calc. Creatinine Clearance 17 mL/min (70-130); Calcium 7.0 mg/dL (7.8-10.44); Carbon Dioxide 21 mmol/L (22-29); Chloride 93 mmol/L (98-107); Glucose 65 mg/dL (70-105); Potassium 4.8 mmol/L (3.5-5.1); Sodium 129 mmol/L (136-145)
[2025-02-08] MEDS ORDERED: Etomidate 40 MG (20 mL) VIAL ONE (12:46)
[2025-02-08] MEDS ORDERED: fentaNYL PF 100 MCG/2 ML SYRINGE ONE ×4 (12:46→16:10)
[2025-02-08] MEDS ORDERED: Rocuronium Bromide 10 MG/ML (10ML VIAL) ONE (13:40)
[2025-02-08] MEDS ORDERED: CEFAZOLIN 1 GM VIAL ONE (14:12)
[2025-02-08] MEDS ORDERED: Calcium Chloride 1 GM/10 ML Abboject SYRINGE ONE (15:15)
[2025-02-08] MEDS ORDERED: PHENYLEPHRINE-NS 100 MCG/ML 10 ML SYRINGE ONE (15:17)
[2025-02-08] MEDS ORDERED: SUGAMMADEX SODIUM 200 MG/2 ML VIAL ONE (15:18)
[2025-02-08] MEDS ORDERED: PROPOFOL 20 ML ONE (15:20)
[2025-02-08] MEDS ORDERED: HYDROmorphone 0.5 MG/0.5 ML SYRINGE ONE ×3 (15:59→16:28)
[2025-02-08] MEDS ORDERED: HYDROmorphone 0.5 MG/0.5 ML SYR SLOW IVP PRN (15:59)
[2025-02-08] MEDS ORDERED: Ketamine In 0.9 % NaCl 50 MG/5 ML SYRINGE ONE (16:32)
[2025-02-08 16:55] LABS: #Basophils 0.05 10x3/uL (0.0-0.2); #Eosinophils 0.22 10x3/uL (0.0-0.7); #Monocytes 0.83 10x3/uL (0.11-0.59); #Neutrophils 16.36 10x3/uL (1.40-6.50); %Basophils 0.3 % (0.0-1.0); %Eosinophils 1.2 % (0.0-10.0); %Lymphocytes 3.9 % (21.0-51.0); %Monocytes 4.5 % (0.0-10.0); %Neutrophils 87.8 % (42.0-75.0); Hematocrit 25.4 % (42.0-52.0); Hemoglobin 7.8 g/dL (14.0-18.0); Mean Corpuscular Hemoglobin 28.7 pg (27.0-31.0); Mean Corpuscular Volume 93.4 fL (78.0-98.0); Platelet Count 144 10x3/uL (130-400); Red Blood Cell (RBC) Count 2.72 mill/uL (4.70-6.10); White Blood Cell (WBC) Count 18.61 10x3/uL (4.8-10.8)
[2025-02-08 23:09] LABS: Hematocrit 27.0 % (42.0-52.0); Hemoglobin 8.4 g/dL (14.0-18.0)
[2025-02-09 08:19] LABS: #Basophils 0.04 10x3/uL (0.0-0.2); #Eosinophils Less than 0.03 10x3/uL (0.0-0.7); #Monocytes 0.74 10x3/uL (0.11-0.59); #Neutrophils 21.73 10x3/uL (1.40-6.50); %Basophils 0.2 % (0.0-1.0); %Eosinophils 0.0 % (0.0-10.0); %Lymphocytes 4.0 % (21.0-51.0); %Monocytes 3.1 % (0.0-10.0); %Neutrophils 90.8 % (42.0-75.0); Hematocrit 25.5 % (42.0-52.0); Hemoglobin 7.9 g/dL (14.0-18.0); Mean Corpuscular Hemoglobin 29.0 pg (27.0-31.0); Mean Corpuscular Volume 93.8 fL (78.0-98.0); Platelet Count 153 10x3/uL (130-400); Red Blood Cell (RBC) Count 2.72 mill/uL (4.70-6.10); White Blood Cell (WBC) Count 23.91 10x3/uL (4.8-10.8)
[2025-02-09 08:34] LABS: Anion Gap 21 mmol/L (10-20); BUN (Urea Nitrogen) 80 mg/dL (8.9-20.6); Calc. Creatinine Clearance 16 mL/min (70-130); Calcium 7.2 mg/dL (7.8-10.44); Carbon Dioxide 18 mmol/L (22-29); Chloride 94 mmol/L (98-107); Glucose 103 mg/dL (70-105); Potassium 5.8 mmol/L (3.5-5.1); Sodium 127 mmol/L (136-145)
[2025-02-10 05:50] LABS: #Basophils Less than 0.03 10x3/uL (0.0-0.2); #Eosinophils 0.03 10x3/uL (0.0-0.7); #Monocytes 1.72 10x3/uL (0.11-0.59); #Neutrophils 14.67 10x3/uL (1.40-6.50); %Basophils 0.1 % (0.0-1.0); %Eosinophils 0.2 % (0.0-10.0); %Lymphocytes 9.1 % (21.0-51.0); %Monocytes 9.3 % (0.0-10.0); %Neutrophils 78.9 % (42.0-75.0); Hematocrit 24.6 % (42.0-52.0); Hemoglobin 7.6 g/dL (14.0-18.0); Mean Corpuscular Hemoglobin 29.1 pg (27.0-31.0); Mean Corpuscular Volume 94.3 fL (78.0-98.0); Platelet Count 151 10x3/uL (130-400); Red Blood Cell (RBC) Count 2.61 mill/uL (4.70-6.10); White Blood Cell (WBC) Count 18.58 10x3/uL (4.8-10.8)
[2025-02-10 06:08] LABS: Anion Gap 16 mmol/L (10-20); BUN (Urea Nitrogen) 56 mg/dL (8.9-20.6); Calc. Creatinine Clearance 21 mL/min (70-130); Calcium 7.4 mg/dL (7.8-10.44); Carbon Dioxide 24 mmol/L (22-29); Chloride 94 mmol/L (98-107); Glucose 104 mg/dL (70-105); Potassium 4.6 mmol/L (3.5-5.1); Sodium 129 mmol/L (136-145)
[2025-02-10] MEDS ORDERED: PROPOFOL 20 ML ONE (09:26)
[2025-02-10] MEDS ORDERED: fentaNYL PF 100 MCG/2 ML SYRINGE ONE (09:26)
[2025-02-10] MEDS ORDERED: Ketamine In 0.9 % NaCl 50 MG/5 ML SYRINGE ONE (09:36)
[2025-02-10] MEDS ORDERED: Bupivacaine 0.25% HCL 30 ML VIAL ONE (09:37)
[2025-02-11 05:30] LABS: #Basophils Less than 0.03 10x3/uL (0.0-0.2); #Eosinophils 0.15 10x3/uL (0.0-0.7); #Monocytes 1.32 10x3/uL (0.11-0.59); #Neutrophils 10.12 10x3/uL (1.40-6.50); %Basophils 0.1 % (0.0-1.0); %Eosinophils 1.1 % (0.0-10.0); %Lymphocytes 12.9 % (21.0-51.0); %Monocytes 9.6 % (0.0-10.0); %Neutrophils 73.4 % (42.0-75.0); Hematocrit 24.3 % (42.0-52.0); Hemoglobin 7.4 g/dL (14.0-18.0); Mean Corpuscular Hemoglobin 29.1 pg (27.0-31.0); Mean Corpuscular Volume 95.7 fL (78.0-98.0); Platelet Count 143 10x3/uL (130-400); Red Blood Cell (RBC) Count 2.54 mill/uL (4.70-6.10); White Blood Cell (WBC) Count 13.78 10x3/uL (4.8-10.8)
[2025-02-11 05:43] LABS: Anion Gap 18 mmol/L (10-20); BUN (Urea Nitrogen) 65 mg/dL (8.9-20.6); Calc. Creatinine Clearance 20 mL/min (70-130); Calcium 6.8 mg/dL (7.8-10.44); Carbon Dioxide 22 mmol/L (22-29); Chloride 96 mmol/L (98-107); Glucose 109 mg/dL (70-105); Potassium 4.7 mmol/L (3.5-5.1); Sodium 131 mmol/L (136-145)
[2025-02-11] MEDS: Acetaminophen 500 MG TAB PO SCH (14:16)
[2025-02-11] MEDS: oxyCODONE 5 MG TAB PO PRN (14:17)
[2025-02-11 15:15] VITALS: BMI 25.8
[2025-02-11] MEDS: diphenhydrAMINE 12.5 MG/5 ML UDCUP PO SCH (18:06)
[2025-02-11] MEDS: CEFAZOLIN 2 GM, CEFAZOLIN 1 GM in Sodium Chloride 0.9% 100 ML IVPB SCH (18:07)
[2025-02-12 06:01] LABS: #Basophils 0.03 10x3/uL (0.0-0.2); #Eosinophils 0.12 10x3/uL (0.0-0.7); #Monocytes 1.07 10x3/uL (0.11-0.59); #Neutrophils 8.16 10x3/uL (1.40-6.50); %Basophils 0.3 % (0.0-1.0); %Eosinophils 1.1 % (0.0-10.0); %Lymphocytes 10.9 % (21.0-51.0); %Monocytes 9.9 % (0.0-10.0); %Neutrophils 75.4 % (42.0-75.0); Hematocrit 29.8 % (42.0-52.0); Hemoglobin 9.2 g/dL (14.0-18.0); Mean Corpuscular Hemoglobin 29.2 pg (27.0-31.0); Mean Corpuscular Volume 94.6 fL (78.0-98.0); Platelet Count 125 10x3/uL (130-400); Red Blood Cell (RBC) Count 3.15 mill/uL (4.70-6.10); White Blood Cell (WBC) Count 10.82 10x3/uL (4.8-10.8)
[2025-02-12 06:34] LABS: Anion Gap 14 mmol/L (10-20); BUN (Urea Nitrogen) 38 mg/dL (8.9-20.6); Calc. Creatinine Clearance 26 mL/min (70-130); Calcium 7.7 mg/dL (7.8-10.44); Carbon Dioxide 28 mmol/L (22-29); Chloride 96 mmol/L (98-107); Glucose 93 mg/dL (70-105); Potassium 3.8 mmol/L (3.5-5.1); Sodium 134 mmol/L (136-145)
[2025-02-13 05:10] LABS: #Basophils 0.05 10x3/uL (0.0-0.2); #Eosinophils 0.24 10x3/uL (0.0-0.7); #Monocytes 1.03 10x3/uL (0.11-0.59); #Neutrophils 8.67 10x3/uL (1.40-6.50); %Basophils 0.4 % (0.0-1.0); %Eosinophils 2.1 % (0.0-10.0); %Lymphocytes 12.6 % (21.0-51.0); %Monocytes 8.8 % (0.0-10.0); %Neutrophils 74.0 % (42.0-75.0); Hematocrit 28.8 % (42.0-52.0); Hemoglobin 8.8 g/dL (14.0-18.0); Mean Corpuscular Hemoglobin 29.1 pg (27.0-31.0); Mean Corpuscular Volume 95.4 fL (78.0-98.0); Platelet Count 124 10x3/uL (130-400); Red Blood Cell (RBC) Count 3.02 mill/uL (4.70-6.10); White Blood Cell (WBC) Count 11.70 10x3/uL (4.8-10.8)
[2025-02-13 05:22] LABS: Anion Gap 13 mmol/L (10-20); BUN (Urea Nitrogen) 44 mg/dL (8.9-20.6); Calc. Creatinine Clearance 23 mL/min (70-130); Calcium 7.6 mg/dL (7.8-10.44); Carbon Dioxide 26 mmol/L (22-29); Chloride 94 mmol/L (98-107); Glucose 79 mg/dL (70-105); Potassium 4.3 mmol/L (3.5-5.1); Sodium 129 mmol/L (136-145)
[2025-02-13 05:48] LABS: Platelet Adequacy Comment Platelets Decreased; Polychromasia SLIGHT = 2-3 cells HPF (0-2); Smudge Cells 14.0 %
[2025-02-13] MEDS: Acetaminophen 500 MG TAB PO SCH (14:35)
[2025-02-14 07:19] LABS: #Basophils 0.05 10x3/uL (0.0-0.2); #Eosinophils 0.31 10x3/uL (0.0-0.7); #Monocytes 1.10 10x3/uL (0.11-0.59); #Neutrophils 9.68 10x3/uL (1.40-6.50); %Basophils 0.4 % (0.0-1.0); %Eosinophils 2.4 % (0.0-10.0); %Lymphocytes 11.8 % (21.0-51.0); %Monocytes 8.6 % (0.0-10.0); %Neutrophils 75.2 % (42.0-75.0); Hematocrit 29.6 % (42.0-52.0); Hemoglobin 8.9 g/dL (14.0-18.0); Mean Corpuscular Hemoglobin 29.0 pg (27.0-31.0); Mean Corpuscular Volume 96.4 fL (78.0-98.0); Platelet Count 121 10x3/uL (130-400); Red Blood Cell (RBC) Count 3.07 mill/uL (4.70-6.10); White Blood Cell (WBC) Count 12.85 10x3/uL (4.8-10.8)
[2025-02-14 07:39] LABS: Anion Gap 16 mmol/L (10-20); BUN (Urea Nitrogen) 54 mg/dL (8.9-20.6); Calc. Creatinine Clearance 19 mL/min (70-130); Calcium 7.7 mg/dL (7.8-10.44); Carbon Dioxide 24 mmol/L (22-29); Chloride 95 mmol/L (98-107); Glucose 87 mg/dL (70-105); Potassium 4.5 mmol/L (3.5-5.1); Sodium 130 mmol/L (136-145)
[2025-02-14] MEDS: Albumin 25% 25 GM (100 mL) BOT IVPB SCH (10:54)
[2025-02-15 05:05] LABS: Anion Gap 15 mmol/L (10-20); BUN (Urea Nitrogen) 29 mg/dL (8.9-20.6); Calc. Creatinine Clearance 26 mL/min (70-130); Calcium 7.7 mg/dL (7.8-10.44); Carbon Dioxide 27 mmol/L (22-29); Chloride 99 mmol/L (98-107); Glucose 104 mg/dL (70-105); Potassium 4.0 mmol/L (3.5-5.1); Sodium 137 mmol/L (136-145)
[2025-02-15 05:09] LABS: #Basophils 0.05 10x3/uL (0.0-0.2); #Eosinophils 0.27 10x3/uL (0.0-0.7); #Monocytes 1.27 10x3/uL (0.11-0.59); #Neutrophils 8.75 10x3/uL (1.40-6.50); %Basophils 0.4 % (0.0-1.0); %Eosinophils 2.3 % (0.0-10.0); %Lymphocytes 10.9 % (21.0-51.0); %Monocytes 10.8 % (0.0-10.0); %Neutrophils 74.3 % (42.0-75.0); Hematocrit 29.3 % (42.0-52.0); Hemoglobin 8.8 g/dL (14.0-18.0); Mean Corpuscular Hemoglobin 29.2 pg (27.0-31.0); Mean Corpuscular Volume 97.3 fL (78.0-98.0); Platelet Count 126 10x3/uL (130-400); Red Blood Cell (RBC) Count 3.01 mill/uL (4.70-6.10); White Blood Cell (WBC) Count 11.77 10x3/uL (4.8-10.8)
[2025-02-15 05:56] LABS: Nucleated RBC (Manual Ct) 1 % (0); Platelet Adequacy Comment Platelets Decreased; RBC Morphology Within Normal Limits; Smudge Cells 11.0 %
[2025-02-15 12:11] VITALS: BP 149/82; TEMP 98.2
[2025-02-18] MEDS ORDERED: ADMIXTURE FEE IVPB SCH (17:00)
[2025-02-18] MEDS ORDERED: SODIUM CHLORIDE IVPB SCH (17:00)
[2025-02-18] MEDS ORDERED: CEFAZOLIN IVPB SCH (17:00)
== END 2025-02-15 12:52 | DRG 853 ==
LOC: ERS 15:20 → 2NO 21:36 → T4-A 02-02 16:53
PROVIDERS: ADMIT Student in an Organized Health Care Education/Training Program; ATTEND Hospitalist
PROC: 30233J1 Transfusion of Nonautologous Serum Albumin into Peripheral Vein, Percutaneous Approach (ICD-10-PCS; 2025-01-30)
PROC: 0SP Lower Joints, Removal (ICD-10-PCS; principal; 2025-02-10)
PROC: 0KBP0ZZ Excision of Left Hip Muscle, Open Approach (ICD-10-PCS; principal; 2025-02-10)
PROC: 3E03329 Introduction of Other Anti-infective into Peripheral Vein, Percutaneous Approach (ICD-10-PCS; 2025-02-10)
PROC: 0WPG03Z Removal of Infusion Device from Peritoneal Cavity, Open Approach (ICD-10-PCS; 2025-02-10)
DX: A41.01 Sepsis due to Methicillin susceptible Staphylococcus aureus (principal); N18.6 End stage renal disease; T84.52XA Infection and inflammatory reaction due to internal left hip prosthesis, initial encounter; E87.1 Hypo-osmolality and hyponatremia; L03.115 Cellulitis of right lower limb; L02.612 Cutaneous abscess of left foot; L97.429 Non-pressure chronic ulcer of left heel and midfoot with unspecified severity; N25.81 Secondary hyperparathyroidism of renal origin; E87.20 Acidosis, unspecified; I13.2 Hypertensive heart and chronic kidney disease with heart failure and with stage 5 chronic kidney disease, or end stage renal disease; I50.32 Chronic diastolic (congestive) heart failure; D63.1 Anemia in chronic kidney disease; I25.10 Atherosclerotic heart disease of native coronary artery without angina pectoris; E83.59 Other disorders of calcium metabolism; E11.22 Type 2 diabetes mellitus with diabetic chronic kidney disease; L89.159 Pressure ulcer of sacral region, unspecified stage; E11.51 Type 2 diabetes mellitus with diabetic peripheral angiopathy without gangrene; E83.51 Hypocalcemia; E87.5 Hyperkalemia; E88.09 Other disorders of plasma-protein metabolism, not elsewhere classified; Z88.0 Allergy status to penicillin; Z99.2 Dependence on renal dialysis; Z88.1 Allergy status to other antibiotic agents; Z95.5 Presence of coronary angioplasty implant and graft; Z88.8 Allergy status to other drugs, medicaments and biological substances; Y79.3 Surgical instruments, materials and orthopedic devices (including sutures) associated with adverse incidents
CPT/HCPCS: 36415; 36416; 36430; 70486; 71045; 71260; 72148; 72170; 74177; 75635; 80048; 80053; 82040; 82306; 83605; 83735; 83970; 84100; 84145; 84484; 85025; 86141; 86850; 86900; 86901; 87040; 87070; 87077; 87149; 87186; 87205; 90935; 90945; 93005; 93306; 94760; 96365; 96366; 96368; 96375; 96376; 97139; G0257; J0169; J0665; J0690; J0692; J1100; J1171; J1200; J1308; J1956; J2185; J2250; J2270; J2704; J2919; J3010; J3490; J7512; P9016; Q0163; Q5105

== ENCOUNTER 2025-03-09 10:16 | Inpatient (IN) | payer MEDICARE ==
[2025-03-09 11:52] LABS: #Basophils 0.06 10x3/uL (0.0-0.2); #Eosinophils 0.34 10x3/uL (0.0-0.7); #Monocytes 1.03 10x3/uL (0.11-0.59); #Neutrophils 5.54 10x3/uL (1.40-6.50); %Basophils 0.7 % (0.0-1.0); %Eosinophils 3.9 % (0.0-10.0); %Lymphocytes 18.7 % (21.0-51.0); %Monocytes 11.9 % (0.0-10.0); %Neutrophils 64.1 % (42.0-75.0); Hematocrit 35.4 % (42.0-52.0); Hemoglobin 10.9 g/dL (14.0-18.0); Mean Corpuscular Hemoglobin 29.8 pg (27.0-31.0); Mean Corpuscular Volume 96.7 fL (78.0-98.0); Platelet Count 212 10x3/uL (130-400); Red Blood Cell (RBC) Count 3.66 mill/uL (4.70-6.10); White Blood Cell (WBC) Count 8.65 10x3/uL (4.8-10.8)
[2025-03-09 12:04] LABS: ALT (SGPT) Less than 7 U/L (Less than 45); AST (SGOT) 39 U/L (11-34); Albumin 1.7 g/dL (3.1-4.5); Alkaline Phosphatase 150 U/L (40-110); Anion Gap 20 mmol/L (10-20); BUN (Urea Nitrogen) 76 mg/dL (8.9-20.6); Bilirubin, Total 0.4 mg/dL (0.3-1.2); Calc. Creatinine Clearance 0 mL/min (70-130); Calcium 7.6 mg/dL (7.8-10.44); Carbon Dioxide 21 mmol/L (22-29); Chloride 96 mmol/L (98-107); Globulin 4.2 g/dL (2.4-3.5); Glucose 112 mg/dL (70-105); Potassium 5.2 mmol/L (3.5-5.1); Sodium 132 mmol/L (136-145)
[2025-03-09] MEDS ORDERED: Acetaminophen 325 MG TAB PO PRN (14:42)
[2025-03-09] MEDS ORDERED: Dextrose 50% Abboject 50 ML SYRINGE SLOW IVP PRN (14:42)
[2025-03-09] MEDS ORDERED: Melatonin 3 MG TAB PO PRN (14:42)
[2025-03-09] MEDS ORDERED: Glucagon 1 MG/ML KIT IM PRN (14:42)
[2025-03-09] MEDS ORDERED: Heparin 10,000 UNITS/ 10 ML VIAL FS PRN (18:30)
[2025-03-09] MEDS: Heparin 5,000 UNITS/ML VIAL SC SCH (20:06)
[2025-03-09] MEDS: oxyCODONE/Acetaminophen 5 mg/325 mg Tablet PO PRN (20:36)
[2025-03-09 20:45] VITALS: BMI 27.5
[2025-03-09] MEDS ORDERED: CEFAZOLIN 1 GM VIAL SLOW IVP SCH (22:00)
[2025-03-10 05:55] LABS: #Basophils 0.06 10x3/uL (0.0-0.2); #Eosinophils 0.39 10x3/uL (0.0-0.7); #Monocytes 1.08 10x3/uL (0.11-0.59); #Neutrophils 5.59 10x3/uL (1.40-6.50); %Basophils 0.7 % (0.0-1.0); %Eosinophils 4.3 % (0.0-10.0); %Lymphocytes 20.6 % (21.0-51.0); %Monocytes 11.9 % (0.0-10.0); %Neutrophils 61.7 % (42.0-75.0); Hematocrit 29.4 % (42.0-52.0); Hemoglobin 9.2 g/dL (14.0-18.0); Mean Corpuscular Hemoglobin 30.4 pg (27.0-31.0); Mean Corpuscular Volume 97.0 fL (78.0-98.0); Platelet Count 231 10x3/uL (130-400); Red Blood Cell (RBC) Count 3.03 mill/uL (4.70-6.10); White Blood Cell (WBC) Count 9.06 10x3/uL (4.8-10.8)
[2025-03-10 06:19] LABS: ALT (SGPT) Less than 7 U/L (Less than 45); AST (SGOT) 25 U/L (11-34); Albumin 1.7 g/dL (3.1-4.5); Alkaline Phosphatase 145 U/L (40-110); Anion Gap 17 mmol/L (10-20); BUN (Urea Nitrogen) 47 mg/dL (8.9-20.6); Bilirubin, Total 0.4 mg/dL (0.3-1.2); Calc. Creatinine Clearance 25 mL/min (70-130); Calcium 7.7 mg/dL (7.8-10.44); Carbon Dioxide 25 mmol/L (22-29); Chloride 98 mmol/L (98-107); Globulin 4.1 g/dL (2.4-3.5); Glucose 82 mg/dL (70-105); Potassium 4.7 mmol/L (3.5-5.1); Sodium 135 mmol/L (136-145)
[2025-03-10] MEDS: Gabapentin 300 MG CAP PO SCH ×2 (09:49→21:15)
[2025-03-10] MEDS: Carvedilol 6.25 MG TAB PO SCH (21:14)
[2025-03-10] MEDS: TENAPANOR HCL PO SCH (21:15)
[2025-03-11 04:28] LABS: #Basophils 0.08 10x3/uL (0.0-0.2); #Eosinophils 0.49 10x3/uL (0.0-0.7); #Monocytes 1.28 10x3/uL (0.11-0.59); #Neutrophils 6.17 10x3/uL (1.40-6.50); %Basophils 0.8 % (0.0-1.0); %Eosinophils 4.9 % (0.0-10.0); %Lymphocytes 19.7 % (21.0-51.0); %Monocytes 12.7 % (0.0-10.0); %Neutrophils 61.2 % (42.0-75.0); Hematocrit 31.3 % (42.0-52.0); Hemoglobin 9.6 g/dL (14.0-18.0); Mean Corpuscular Hemoglobin 29.8 pg (27.0-31.0); Mean Corpuscular Volume 97.2 fL (78.0-98.0); Platelet Count 266 10x3/uL (130-400); Red Blood Cell (RBC) Count 3.22 mill/uL (4.70-6.10); White Blood Cell (WBC) Count 10.07 10x3/uL (4.8-10.8)
[2025-03-11 04:42] LABS: Anion Gap 21 mmol/L (10-20); BUN (Urea Nitrogen) 56 mg/dL (8.9-20.6); Calc. Creatinine Clearance 24 mL/min (70-130); Calcium 7.8 mg/dL (7.8-10.44); Carbon Dioxide 23 mmol/L (22-29); Chloride 97 mmol/L (98-107); Glucose 96 mg/dL (70-105); Potassium 4.9 mmol/L (3.5-5.1); Sodium 136 mmol/L (136-145)
[2025-03-11 04:43] LABS: CRP, High Sensitivity at Bryan 4.44 mg/dL (< or = 0.5)
[2025-03-11] MEDS: Aspirin Chewable 81 MG TAB PO SCH (08:52)
[2025-03-11] MEDS: Isosorbide Mononitrate 60 MG ER.TAB PO SCH (14:29)
[2025-03-11 21:12] VITALS: BP 152/97; TEMP 98.2
[2025-03-12] MEDS ORDERED: Isosorbide Mononitrate 60 MG ER.TAB PO SCH (09:00)
== END 2025-03-11 22:22 | disposition home or self-care (01) | DRG 640 ==
LOC: ERS 10:16 → ERHOLD 13:26 → T4-B 17:07 → OBSVTOIN 03-10 16:15
PROVIDERS: ADMIT Family Medicine; ATTEND Student in an Organized Health Care Education/Training Program
DX: E87.5 Hyperkalemia (principal); N18.6 End stage renal disease; L97.409 Non-pressure chronic ulcer of unspecified heel and midfoot with unspecified severity; I25.10 Atherosclerotic heart disease of native coronary artery without angina pectoris; E11.22 Type 2 diabetes mellitus with diabetic chronic kidney disease; D63.1 Anemia in chronic kidney disease; E11.621 Type 2 diabetes mellitus with foot ulcer; E83.59 Other disorders of calcium metabolism; E88.09 Other disorders of plasma-protein metabolism, not elsewhere classified; E87.20 Acidosis, unspecified; Z95.5 Presence of coronary angioplasty implant and graft; Z88.8 Allergy status to other drugs, medicaments and biological substances; Z91.158 Patient's noncompliance with renal dialysis for other reason; Z99.2 Dependence on renal dialysis
CPT/HCPCS: 36415; 36416; 80048; 80053; 85025; 86141; 90935; 93005; 96372; 96374; 96375; 96376; G0257; G0378; J1644; J2185

== ENCOUNTER 2025-04-21 20:20 | Inpatient (IN) | payer MEDICARE ==
[2025-04-21 22:09] LABS: #Basophils 0.05 10x3/uL (0.0-0.2); #Eosinophils 0.36 10x3/uL (0.0-0.7); #Monocytes 0.92 10x3/uL (0.11-0.59); #Neutrophils 7.35 10x3/uL (1.40-6.50); %Basophils 0.5 % (0.0-1.0); %Eosinophils 3.5 % (0.0-10.0); %Lymphocytes 15.1 % (21.0-51.0); %Monocytes 8.9 % (0.0-10.0); %Neutrophils 71.5 % (42.0-75.0); Hematocrit 29.8 % (42.0-52.0); Hemoglobin 9.7 g/dL (14.0-18.0); Mean Corpuscular Hemoglobin 31.6 pg (27.0-31.0); Mean Corpuscular Volume 97.1 fL (78.0-98.0); Platelet Count 265 10x3/uL (130-400); Red Blood Cell (RBC) Count 3.07 mill/uL (4.70-6.10); White Blood Cell (WBC) Count 10.28 10x3/uL (4.8-10.8)
[2025-04-21 22:27] LABS: ALT (SGPT) Less than 7 U/L (Less than 45); AST (SGOT) 25 U/L (11-34); Albumin 2.2 g/dL (3.1-4.5); Alkaline Phosphatase 81 U/L (40-110); Anion Gap 19 mmol/L (10-20); BUN (Urea Nitrogen) 37 mg/dL (8.9-20.6); Bilirubin, Total 0.4 mg/dL (0.3-1.2); Calc. Creatinine Clearance 0 mL/min (70-130); Calcium 8.5 mg/dL (7.8-10.44); Carbon Dioxide 26 mmol/L (22-29); Chloride 94 mmol/L (98-107); Globulin 4.3 g/dL (2.4-3.5); Glucose 93 mg/dL (70-105); Potassium 4.6 mmol/L (3.5-5.1); Sodium 134 mmol/L (136-145)
[2025-04-21] MEDS ORDERED: hydrALAZINE 20 MG/ML VIAL ONE (23:10)
[2025-04-21] MEDS ORDERED: Acetaminophen 325 MG TAB PO PRN (23:32)
[2025-04-22] MEDS: HYDROmorphone 0.5 MG/0.5 ML SYRINGE SLOW IVP SCH (02:39)
[2025-04-22] MEDS: EPOETIN ALFA-EPBX (ESRD) 10,000 UNITS/ML VIAL IVP SCH (05:27)
[2025-04-22 06:13] VITALS: BMI 28.9
[2025-04-22] MEDS ORDERED: HYDROcodone/Acetaminophen 10/325 mg Tablet PO PRN (08:01)
[2025-04-22] MEDS ORDERED: Ondansetron PF 4 MG/2 ML Vial IVP PRN (09:08)
[2025-04-22] MEDS: Aspirin Chewable 81 MG TAB PO SCH (09:20)
[2025-04-22] MEDS: Isosorbide Mononitrate 60 MG ER.TAB PO SCH (09:20)
[2025-04-22] MEDS: Folic Acid/Vit B Comp W-C PO SCH (09:20)
[2025-04-22] MEDS: Carvedilol 6.25 MG TAB PO SCH (09:20)
[2025-04-22] MEDS: Ezetimibe 10 MG TAB PO SCH (09:22)
[2025-04-22] MEDS: Pantoprazole 40 MG DR.TAB PO SCH (09:22)
[2025-04-22 10:09] LABS: Actual Bicarbonate (HCO3a) 30.5 mEq/L (22-28); Base Excess (BEa) -0.4 mEq/L (-2.0 to +3.0); CO2 Tension 90.7 mmHg (35.0-45.0); Calcium, Ionized (arterial) 1.18 mmol/L (1.12-1.30); Hematocrit-ABG 34 % (42.0-52.0); Hemoglobin (Hb) 11.5 g/dL (14.0-18.0); O2 Tension (PaO2), arterial 73.8 mmHg (80.0-100.0); Potassium - ABG Lab 4.02 mmol/L (3.70-5.30); Puncture Site Left Radial artery; pH, Arterial 7.145 (7.35-7.45)
[2025-04-22] MEDS: Sodium Bicarb 50 MEQ/50 ML Abboject 8.4% SYRINGE ONE (10:15)
[2025-04-22] MEDS ORDERED: Etomidate 40 MG (20 mL) VIAL ONE (10:20)
[2025-04-22] MEDS ORDERED: Propofol BOLUS 1,000 MG/100 ML VIAL IV PRN (10:30)
[2025-04-22] MEDS ORDERED: DISCONTINUE PREVIOUS NARCOTIC PAIN MEDICATIONS AND BENZODIAZEPINES FS SCH (10:30)
[2025-04-22] MEDS ORDERED: Fentanyl BOLUS 100 ML IVPB PRN (10:30)
[2025-04-22] MEDS ORDERED: Ventilator Sedation Protocol 1 EACH FS SCH (11:45)
[2025-04-22 12:06] LABS: #Basophils 0.03 10x3/uL (0.0-0.2); #Eosinophils 0.11 10x3/uL (0.0-0.7); #Monocytes 1.28 10x3/uL (0.11-0.59); #Neutrophils 8.76 10x3/uL (1.40-6.50); %Basophils 0.2 % (0.0-1.0); %Eosinophils 0.8 % (0.0-10.0); %Lymphocytes 23.3 % (21.0-51.0); %Monocytes 9.6 % (0.0-10.0); %Neutrophils 65.5 % (42.0-75.0); Hematocrit 34.9 % (42.0-52.0); Hemoglobin 10.8 g/dL (14.0-18.0); Mean Corpuscular Hemoglobin 31.1 pg (27.0-31.0); Mean Corpuscular Volume 100.6 fL (78.0-98.0); Platelet Count 330 10x3/uL (130-400); Red Blood Cell (RBC) Count 3.47 mill/uL (4.70-6.10); White Blood Cell (WBC) Count 13.38 10x3/uL (4.8-10.8)
[2025-04-22 12:28] LABS: ALT (SGPT) Less than 7 U/L (Less than 45); AST (SGOT) 30 U/L (11-34); Albumin 2.4 g/dL (3.1-4.5); Alkaline Phosphatase 92 U/L (40-110); Anion Gap 18 mmol/L (10-20); BUN (Urea Nitrogen) 23 mg/dL (8.9-20.6); Bilirubin, Total 0.6 mg/dL (0.3-1.2); Calc. Creatinine Clearance 34 mL/min (70-130); Calcium 8.9 mg/dL (7.8-10.44); Carbon Dioxide 27 mmol/L (22-29); Chloride 96 mmol/L (98-107); Globulin 4.8 g/dL (2.4-3.5); Glucose 92 mg/dL (70-105); Magnesium 2.0 mg/dL (1.6-2.6); Potassium 4.1 mmol/L (3.5-5.1); Sodium 137 mmol/L (136-145)
[2025-04-22 14:52] LABS: Actual Bicarbonate (HCO3v) 30.8 mEq/L (22-28); Base Excess 8.3 mEq/L (-2.0 to +3.0); Calcium, Ionized (venous) 1.02 mmol/L (1.16-1.32); Chloride (VBG) 96 mmol/L (98-106); Hematocrit-VBG 29 % (42.0-52.0); Hemoglobin (Hb) 9.9 g/dL (13.2-17.3); Potassium (VBG) 3.29 mmol/L (3.70-5.30); Sodium 136 mmol/L (133-146)
[2025-04-22] MEDS: Mupirocin 1 GM TUBE TP SCH (21:03)
[2025-04-22] MEDS: levETIRAcetam 500 MG TAB PO SCH (21:04)
[2025-04-22] MEDS: Heparin 5,000 UNITS/ML VIAL SC SCH (21:05)
[2025-04-22] MEDS ORDERED: Glucagon 1 MG/ML KIT IM PRN (21:59)
[2025-04-22] MEDS: Pantoprazole 40 MG VIAL IVP SCH (22:02)
[2025-04-23 04:30] LABS: #Basophils 0.05 10x3/uL (0.0-0.2); #Eosinophils 0.44 10x3/uL (0.0-0.7); #Monocytes 0.79 10x3/uL (0.11-0.59); #Neutrophils 6.34 10x3/uL (1.40-6.50); %Basophils 0.6 % (0.0-1.0); %Eosinophils 4.9 % (0.0-10.0); %Lymphocytes 15.5 % (21.0-51.0); %Monocytes 8.7 % (0.0-10.0); %Neutrophils 70.0 % (42.0-75.0); Hematocrit 28.6 % (42.0-52.0); Hemoglobin 8.9 g/dL (14.0-18.0); Mean Corpuscular Hemoglobin 31.1 pg (27.0-31.0); Mean Corpuscular Volume 100.0 fL (78.0-98.0); Platelet Count 197 10x3/uL (130-400); Red Blood Cell (RBC) Count 2.86 mill/uL (4.70-6.10); White Blood Cell (WBC) Count 9.05 10x3/uL (4.8-10.8)
[2025-04-23 04:46] LABS: ALT (SGPT) Less than 7 U/L (Less than 45); AST (SGOT) 36 U/L (11-34); Albumin 1.9 g/dL (3.1-4.5); Alkaline Phosphatase 69 U/L (40-110); Anion Gap 14 mmol/L (10-20); BUN (Urea Nitrogen) 18 mg/dL (8.9-20.6); Bilirubin, Total 0.6 mg/dL (0.3-1.2); Calc. Creatinine Clearance 44 mL/min (70-130); Calcium 8.2 mg/dL (7.8-10.44); Carbon Dioxide 31 mmol/L (22-29); Chloride 97 mmol/L (98-107); Globulin 3.7 g/dL (2.4-3.5); Glucose 71 mg/dL (70-105); Potassium 3.0 mmol/L (3.5-5.1); Sodium 139 mmol/L (136-145)
[2025-04-23] MEDS: Pantoprazole 40 MG VIAL IVP SCH (09:07)
[2025-04-23] MEDS: FLU (Fluarix Triv) 25-26 (6MOS UP)/PF 45 MCG/0.5 ML Syringe IM ONE (09:08)
[2025-04-23] MEDS: DC Sedation Protocol FS ONE (11:30)
[2025-04-23] MEDS: HYDROcodone/Acetaminophen 7.5/325 mg Tablet PO PRN (11:31)
[2025-04-23] MEDS ORDERED: Albumin 25% 25 GM (100 mL) BOT IVPB SCH (11:45)
[2025-04-23] MEDS: Albumin 25% 25 GM (100 mL) BOT IVPB SCH (12:12)
[2025-04-23] MEDS: Gabapentin 100 MG CAP PO SCH (20:00)
[2025-04-24 04:46] LABS: #Basophils 0.05 10x3/uL (0.0-0.2); #Eosinophils 0.51 10x3/uL (0.0-0.7); #Monocytes 0.79 10x3/uL (0.11-0.59); #Neutrophils 6.46 10x3/uL (1.40-6.50); %Basophils 0.5 % (0.0-1.0); %Eosinophils 5.5 % (0.0-10.0); %Lymphocytes 14.8 % (21.0-51.0); %Monocytes 8.6 % (0.0-10.0); %Neutrophils 70.3 % (42.0-75.0); Hematocrit 27.2 % (42.0-52.0); Hemoglobin 8.6 g/dL (14.0-18.0); Mean Corpuscular Hemoglobin 31.6 pg (27.0-31.0); Mean Corpuscular Volume 100.0 fL (78.0-98.0); Platelet Count 178 10x3/uL (130-400); Red Blood Cell (RBC) Count 2.72 mill/uL (4.70-6.10); White Blood Cell (WBC) Count 9.20 10x3/uL (4.8-10.8)
[2025-04-24 05:02] LABS: ALT (SGPT) Less than 7 U/L (Less than 45); AST (SGOT) 22 U/L (11-34); Albumin 2.6 g/dL (3.1-4.5); Alkaline Phosphatase 58 U/L (40-110); Anion Gap 17 mmol/L (10-20); BUN (Urea Nitrogen) 23 mg/dL (8.9-20.6); Bilirubin, Total 0.6 mg/dL (0.3-1.2); Calc. Creatinine Clearance 35 mL/min (70-130); Calcium 8.3 mg/dL (7.8-10.44); Carbon Dioxide 29 mmol/L (22-29); Chloride 96 mmol/L (98-107); Globulin 3.2 g/dL (2.4-3.5); Glucose 77 mg/dL (70-105); Potassium 3.3 mmol/L (3.5-5.1); Sodium 139 mmol/L (136-145)
[2025-04-24 11:19] LABS: Actual Bicarbonate (HCO3a) 27.8 mEq/L (22-28); Base Excess (BEa) 2.6 mEq/L (-2.0 to +3.0); CO2 Tension 45.6 mmHg (35.0-45.0); Calcium, Ionized (arterial) 1.10 mmol/L (1.12-1.30); Hematocrit-ABG 30 % (42.0-52.0); Hemoglobin (Hb) 10.2 g/dL (14.0-18.0); O2 Tension (PaO2), arterial 93.3 mmHg (80.0-100.0); Potassium - ABG Lab 3.35 mmol/L (3.70-5.30); pH, Arterial 7.403 (7.35-7.45)
[2025-04-24 11:25] LABS: Puncture Site Left Radial artery
[2025-04-24 13:10] LABS: Anion Gap 17 mmol/L (10-20); BUN (Urea Nitrogen) 25 mg/dL (8.9-20.6); Calc. Creatinine Clearance 35 mL/min (70-130); Calcium 8.7 mg/dL (7.8-10.44); Carbon Dioxide 27 mmol/L (22-29); Chloride 97 mmol/L (98-107); Glucose 78 mg/dL (70-105); Potassium 3.4 mmol/L (3.5-5.1); Sodium 138 mmol/L (136-145)
[2025-04-24] MEDS: EPOETIN ALFA-EPBX (ESRD) 10,000 UNITS/ML VIAL IVP SCH (13:47)
[2025-04-25 04:55] LABS: #Basophils 0.06 10x3/uL (0.0-0.2); #Eosinophils 0.52 10x3/uL (0.0-0.7); #Monocytes 0.90 10x3/uL (0.11-0.59); #Neutrophils 10.25 10x3/uL (1.40-6.50); %Basophils 0.4 % (0.0-1.0); %Eosinophils 3.9 % (0.0-10.0); %Lymphocytes 12.5 % (21.0-51.0); %Monocytes 6.7 % (0.0-10.0); %Neutrophils 76.1 % (42.0-75.0); Hematocrit 28.8 % (42.0-52.0); Hemoglobin 8.9 g/dL (14.0-18.0); Mean Corpuscular Hemoglobin 31.2 pg (27.0-31.0); Mean Corpuscular Volume 101.1 fL (78.0-98.0); Platelet Count 178 10x3/uL (130-400); Red Blood Cell (RBC) Count 2.85 mill/uL (4.70-6.10); White Blood Cell (WBC) Count 13.47 10x3/uL (4.8-10.8)
[2025-04-25 05:08] LABS: ALT (SGPT) Less than 7 U/L (Less than 45); AST (SGOT) 13 U/L (11-34); Albumin 2.5 g/dL (3.1-4.5); Alkaline Phosphatase 60 U/L (40-110); Anion Gap 17 mmol/L (10-20); BUN (Urea Nitrogen) 17 mg/dL (8.9-20.6); Bilirubin, Total 0.5 mg/dL (0.3-1.2); Calc. Creatinine Clearance 40 mL/min (70-130); Calcium 8.6 mg/dL (7.8-10.44); Carbon Dioxide 27 mmol/L (22-29); Chloride 99 mmol/L (98-107); Globulin 3.4 g/dL (2.4-3.5); Glucose 71 mg/dL (70-105); Potassium 3.7 mmol/L (3.5-5.1); Sodium 139 mmol/L (136-145)
[2025-04-25] MEDS: Pantoprazole 40 MG VIAL IVP SCH (07:36)
[2025-04-25 10:38] LABS: INR-International Normal Ratio 1.5; Prothrombin Time 18.5 sec (12.0-14.7)
[2025-04-25 10:39] LABS: PTT 51.3 sec (22.9-36.1)
[2025-04-25] MEDS: Dextrose 50% Abboject 50 ML SYRINGE SLOW IVP PRN (10:46)
[2025-04-25] MEDS: ALPRAZolam 0.25 MG TAB PO PRN (12:35)
[2025-04-26 04:12] LABS: #Basophils 0.05 10x3/uL (0.0-0.2); #Eosinophils 0.44 10x3/uL (0.0-0.7); #Monocytes 0.86 10x3/uL (0.11-0.59); #Neutrophils 8.81 10x3/uL (1.40-6.50); %Basophils 0.4 % (0.0-1.0); %Eosinophils 3.7 % (0.0-10.0); %Lymphocytes 12.9 % (21.0-51.0); %Monocytes 7.3 % (0.0-10.0); %Neutrophils 75.1 % (42.0-75.0); Hematocrit 32.0 % (42.0-52.0); Hemoglobin 9.7 g/dL (14.0-18.0); Mean Corpuscular Hemoglobin 30.9 pg (27.0-31.0); Mean Corpuscular Volume 101.9 fL (78.0-98.0); Platelet Count 220 10x3/uL (130-400); Red Blood Cell (RBC) Count 3.14 mill/uL (4.70-6.10); White Blood Cell (WBC) Count 11.74 10x3/uL (4.8-10.8)
[2025-04-26 04:40] LABS: ALT (SGPT) Less than 7 U/L (Less than 45); AST (SGOT) 27 U/L (11-34); Albumin 2.5 g/dL (3.1-4.5); Alkaline Phosphatase 70 U/L (40-110); Anion Gap 18 mmol/L (10-20); BUN (Urea Nitrogen) 24 mg/dL (8.9-20.6); Bilirubin, Total 0.4 mg/dL (0.3-1.2); Calc. Creatinine Clearance 36 mL/min (70-130); Calcium 9.0 mg/dL (7.8-10.44); Carbon Dioxide 25 mmol/L (22-29); Chloride 99 mmol/L (98-107); Globulin 3.8 g/dL (2.4-3.5); Glucose 74 mg/dL (70-105); Potassium 3.6 mmol/L (3.5-5.1); Sodium 138 mmol/L (136-145)
[2025-04-26] MEDS: metroNIDAZOLE 500 MG TAB PO SCH (10:16)
[2025-04-26] MEDS: Carvedilol 6.25 MG TAB PO SCH (12:47)
[2025-04-26] MEDS: Losartan 25 MG TAB PO SCH (12:47)
[2025-04-26] MEDS ORDERED: hydrALAZINE 20 MG/ML VIAL SLOW IVP PRN (13:08)
[2025-04-26] MEDS: Carvedilol 25 MG TAB PO SCH (21:03)
[2025-04-27 04:30] LABS: #Basophils 0.05 10x3/uL (0.0-0.2); #Eosinophils 0.32 10x3/uL (0.0-0.7); #Monocytes 1.00 10x3/uL (0.11-0.59); #Neutrophils 8.88 10x3/uL (1.40-6.50); %Basophils 0.4 % (0.0-1.0); %Eosinophils 2.7 % (0.0-10.0); %Lymphocytes 13.9 % (21.0-51.0); %Monocytes 8.3 % (0.0-10.0); %Neutrophils 74.0 % (42.0-75.0); Hematocrit 35.5 % (42.0-52.0); Hemoglobin 10.9 g/dL (14.0-18.0); Mean Corpuscular Hemoglobin 30.5 pg (27.0-31.0); Mean Corpuscular Volume 99.4 fL (78.0-98.0); Platelet Count 237 10x3/uL (130-400); Red Blood Cell (RBC) Count 3.57 mill/uL (4.70-6.10); White Blood Cell (WBC) Count 12.00 10x3/uL (4.8-10.8)
[2025-04-27 04:48] LABS: ALT (SGPT) Less than 7 U/L (Less than 45); AST (SGOT) 18 U/L (11-34); Albumin 2.5 g/dL (3.1-4.5); Alkaline Phosphatase 65 U/L (40-110); Anion Gap 20 mmol/L (10-20); BUN (Urea Nitrogen) 18 mg/dL (8.9-20.6); Bilirubin, Total 0.4 mg/dL (0.3-1.2); Calc. Creatinine Clearance 42 mL/min (70-130); Calcium 8.8 mg/dL (7.8-10.44); Carbon Dioxide 23 mmol/L (22-29); Chloride 97 mmol/L (98-107); Globulin 3.9 g/dL (2.4-3.5); Glucose 71 mg/dL (70-105); Potassium 3.8 mmol/L (3.5-5.1); Sodium 136 mmol/L (136-145)
[2025-04-27] MEDS: Pantoprazole 40 MG DR.TAB PO SCH (08:35)
[2025-04-27] MEDS: Losartan 25 MG TAB PO SCH (08:37)
[2025-04-27] MEDS: Acetaminophen 500 MG TAB PO SCH (18:28)
[2025-04-27] MEDS: TENAPANOR HCL PO SCH (21:11)
[2025-04-28 04:30] LABS: #Basophils 0.07 10x3/uL (0.0-0.2); #Eosinophils 0.58 10x3/uL (0.0-0.7); #Monocytes 1.09 10x3/uL (0.11-0.59); #Neutrophils 7.36 10x3/uL (1.40-6.50); %Basophils 0.6 % (0.0-1.0); %Eosinophils 5.3 % (0.0-10.0); %Lymphocytes 16.0 % (21.0-51.0); %Monocytes 10.0 % (0.0-10.0); %Neutrophils 67.3 % (42.0-75.0); Hematocrit 35.5 % (42.0-52.0); Hemoglobin 11.1 g/dL (14.0-18.0); Mean Corpuscular Hemoglobin 31.3 pg (27.0-31.0); Mean Corpuscular Volume 100.0 fL (78.0-98.0); Platelet Count 210 10x3/uL (130-400); Red Blood Cell (RBC) Count 3.55 mill/uL (4.70-6.10); White Blood Cell (WBC) Count 10.94 10x3/uL (4.8-10.8)
[2025-04-28 04:55] LABS: ALT (SGPT) Less than 7 U/L (Less than 45); AST (SGOT) 11 U/L (11-34); Albumin 2.2 g/dL (3.1-4.5); Alkaline Phosphatase 64 U/L (40-110); Anion Gap 18 mmol/L (10-20); BUN (Urea Nitrogen) 25 mg/dL (8.9-20.6); Bilirubin, Total 0.4 mg/dL (0.3-1.2); Calc. Creatinine Clearance 33 mL/min (70-130); Calcium 8.5 mg/dL (7.8-10.44); Carbon Dioxide 25 mmol/L (22-29); Chloride 97 mmol/L (98-107); Globulin 3.7 g/dL (2.4-3.5); Glucose 81 mg/dL (70-105); Potassium 3.9 mmol/L (3.5-5.1); Sodium 136 mmol/L (136-145)
[2025-04-28 11:35] VITALS: BMI 26.2
[2025-04-28] MEDS: Ergocalciferol 1.25 MG(50,000 UNITS) CAP PO SCH (12:52)
[2025-04-29 04:30] LABS: #Basophils 0.06 10x3/uL (0.0-0.2); #Eosinophils 0.45 10x3/uL (0.0-0.7); #Monocytes 1.09 10x3/uL (0.11-0.59); #Neutrophils 7.17 10x3/uL (1.40-6.50); %Basophils 0.6 % (0.0-1.0); %Eosinophils 4.2 % (0.0-10.0); %Lymphocytes 16.6 % (21.0-51.0); %Monocytes 10.2 % (0.0-10.0); %Neutrophils 67.4 % (42.0-75.0); Hematocrit 37.0 % (42.0-52.0); Hemoglobin 11.3 g/dL (14.0-18.0); Mean Corpuscular Hemoglobin 30.7 pg (27.0-31.0); Mean Corpuscular Volume 100.5 fL (78.0-98.0); Platelet Count 211 10x3/uL (130-400); Red Blood Cell (RBC) Count 3.68 mill/uL (4.70-6.10); White Blood Cell (WBC) Count 10.65 10x3/uL (4.8-10.8)
[2025-04-29 04:53] LABS: ALT (SGPT) Less than 7 U/L (Less than 45); AST (SGOT) 16 U/L (11-34); Albumin 2.4 g/dL (3.1-4.5); Alkaline Phosphatase 69 U/L (40-110); Anion Gap 16 mmol/L (10-20); BUN (Urea Nitrogen) 16 mg/dL (8.9-20.6); Bilirubin, Total 0.4 mg/dL (0.3-1.2); Calc. Creatinine Clearance 40 mL/min (70-130); Calcium 8.5 mg/dL (7.8-10.44); Carbon Dioxide 28 mmol/L (22-29); Chloride 97 mmol/L (98-107); Globulin 4.0 g/dL (2.4-3.5); Glucose 73 mg/dL (70-105); Potassium 4.1 mmol/L (3.5-5.1); Sodium 137 mmol/L (136-145)
[2025-04-30 04:30] LABS: #Basophils 0.07 10x3/uL (0.0-0.2); #Eosinophils 0.41 10x3/uL (0.0-0.7); #Monocytes 0.95 10x3/uL (0.11-0.59); #Neutrophils 5.97 10x3/uL (1.40-6.50); %Basophils 0.7 % (0.0-1.0); %Eosinophils 4.4 % (0.0-10.0); %Lymphocytes 20.4 % (21.0-51.0); %Monocytes 10.1 % (0.0-10.0); %Neutrophils 63.7 % (42.0-75.0); Hematocrit 34.1 % (42.0-52.0); Hemoglobin 10.4 g/dL (14.0-18.0); Mean Corpuscular Hemoglobin 31.0 pg (27.0-31.0); Mean Corpuscular Volume 101.8 fL (78.0-98.0); Platelet Count 211 10x3/uL (130-400); Red Blood Cell (RBC) Count 3.35 mill/uL (4.70-6.10); White Blood Cell (WBC) Count 9.39 10x3/uL (4.8-10.8)
[2025-04-30 04:54] LABS: CRP, High Sensitivity at Bryan 2.83 mg/dL (< or = 0.5)
[2025-04-30 04:55] LABS: ALT (SGPT) Less than 7 U/L (Less than 45); AST (SGOT) 15 U/L (11-34); Albumin 2.1 g/dL (3.1-4.5); Alkaline Phosphatase 70 U/L (40-110); Anion Gap 13 mmol/L (10-20); BUN (Urea Nitrogen) 23 mg/dL (8.9-20.6); Bilirubin, Total 0.3 mg/dL (0.3-1.2); Calc. Creatinine Clearance 34 mL/min (70-130); Calcium 8.2 mg/dL (7.8-10.44); Carbon Dioxide 28 mmol/L (22-29); Chloride 98 mmol/L (98-107); Globulin 3.6 g/dL (2.4-3.5); Glucose 95 mg/dL (70-105); Magnesium 1.9 mg/dL (1.6-2.6); Potassium 4.4 mmol/L (3.5-5.1); Sodium 135 mmol/L (136-145)
[2025-04-30] MEDS: TENAPANOR HCL PO SCH (17:56)
[2025-05-01 05:48] LABS: #Basophils 0.09 10x3/uL (0.0-0.2); #Eosinophils 0.58 10x3/uL (0.0-0.7); #Monocytes 1.05 10x3/uL (0.11-0.59); #Neutrophils 6.79 10x3/uL (1.40-6.50); %Basophils 0.8 % (0.0-1.0); %Eosinophils 5.2 % (0.0-10.0); %Lymphocytes 22.1 % (21.0-51.0); %Monocytes 9.5 % (0.0-10.0); %Neutrophils 61.1 % (42.0-75.0); Hematocrit 33.5 % (42.0-52.0); Hemoglobin 10.3 g/dL (14.0-18.0); Mean Corpuscular Hemoglobin 31.4 pg (27.0-31.0); Mean Corpuscular Volume 102.1 fL (78.0-98.0); Platelet Count 229 10x3/uL (130-400); Red Blood Cell (RBC) Count 3.28 mill/uL (4.70-6.10); White Blood Cell (WBC) Count 11.10 10x3/uL (4.8-10.8)
[2025-05-01 10:43] LABS: ALT (SGPT) Less than 7 U/L (Less than 45); AST (SGOT) 26 U/L (11-34); Albumin 2.2 g/dL (3.1-4.5); Alkaline Phosphatase 67 U/L (40-110); Anion Gap 16 mmol/L (10-20); BUN (Urea Nitrogen) 35 mg/dL (8.9-20.6); Bilirubin, Total 0.4 mg/dL (0.3-1.2); Calc. Creatinine Clearance 36 mL/min (70-130); Calcium 8.2 mg/dL (7.8-10.44); Carbon Dioxide 26 mmol/L (22-29); Chloride 97 mmol/L (98-107); Globulin 4.0 g/dL (2.4-3.5); Glucose 82 mg/dL (70-105); Potassium 4.6 mmol/L (3.5-5.1); Sodium 134 mmol/L (136-145)
[2025-05-01] MEDS: Albumin 25% 25 GM (100 mL) BOT IVPB PRN (15:12)
[2025-05-01] MEDS: EPOETIN ALFA-EPBX (ESRD) 10,000 UNITS/ML VIAL IVP SCH (15:16)
[2025-05-01] MEDS: Scopolamine 1 mg/72 hour Patch TD SCH (20:30)
[2025-05-01] MEDS: levETIRAcetam 500 MG (5 mL) VIAL SLOW IVP SCH (21:24)
[2025-05-02 06:25] LABS: Anion Gap 14 mmol/L (10-20); BUN (Urea Nitrogen) 25 mg/dL (8.9-20.6); Calc. Creatinine Clearance 43 mL/min (70-130); Calcium 8.7 mg/dL (7.8-10.44); Carbon Dioxide 28 mmol/L (22-29); Chloride 98 mmol/L (98-107); Glucose 75 mg/dL (70-105); Potassium 4.2 mmol/L (3.5-5.1); Sodium 136 mmol/L (136-145)
[2025-05-03 04:31] LABS: Anion Gap 15 mmol/L (10-20); BUN (Urea Nitrogen) 30 mg/dL (8.9-20.6); Calc. Creatinine Clearance 34 mL/min (70-130); Calcium 8.6 mg/dL (7.8-10.44); Carbon Dioxide 25 mmol/L (22-29); Chloride 96 mmol/L (98-107); Glucose 67 mg/dL (70-105); Potassium 4.4 mmol/L (3.5-5.1); Sodium 132 mmol/L (136-145)
[2025-05-03] MEDS: EPOETIN ALFA-EPBX (ESRD) 10,000 UNITS/ML VIAL IVP SCH (11:34)
[2025-05-04 04:29] LABS: Anion Gap 17 mmol/L (10-20); BUN (Urea Nitrogen) 20 mg/dL (8.9-20.6); Calc. Creatinine Clearance 39 mL/min (70-130); Calcium 8.6 mg/dL (7.8-10.44); Carbon Dioxide 24 mmol/L (22-29); Chloride 98 mmol/L (98-107); Glucose 63 mg/dL (70-105); Potassium 4.0 mmol/L (3.5-5.1); Sodium 135 mmol/L (136-145)
[2025-05-04] MEDS: Ondansetron PF 4 MG/2 ML Vial IVP PRN (07:38)
[2025-05-04 13:04] VITALS: BP 144/91; TEMP 98.8
== END 2025-05-04 16:34 | disposition home health service (06) | DRG 208 ==
LOC: ERS 20:20 → 2NO 23:02 → CCU 04-22 10:00 → OBSVTOIN 04-22 10:26 → PCU 04-25 19:57
PROVIDERS: ADMIT Internal Medicine; ATTEND Internal Medicine
PROC: 5A1935Z Respiratory Ventilation, Less than 24 Consecutive Hours (ICD-10-PCS; principal; 2025-04-22)
PROC: 30233J1 Transfusion of Nonautologous Serum Albumin into Peripheral Vein, Percutaneous Approach (ICD-10-PCS; principal; 2025-04-22)
PROC: 0BH17EZ Insertion of Endotracheal Airway into Trachea, Via Natural or Artificial Opening (ICD-10-PCS; principal; 2025-04-22)
PROC: 3E02340 Introduction of Influenza Vaccine into Muscle, Percutaneous Approach (ICD-10-PCS; principal; 2025-04-22)
PROC: 3E0234Z Introduction of Serum, Toxoid and Vaccine into Muscle, Percutaneous Approach (ICD-10-PCS; principal; 2025-04-22)
PROC: 4A133R1 Monitoring of Arterial Saturation, Peripheral, Percutaneous Approach (ICD-10-PCS; 2025-04-22)
PROC: 0B9J8ZZ Drainage of Left Lower Lung Lobe, Via Natural or Artificial Opening Endoscopic (ICD-10-PCS; 2025-04-22)
PROC: 0B9F8ZZ Drainage of Right Lower Lung Lobe, Via Natural or Artificial Opening Endoscopic (ICD-10-PCS; 2025-04-22)
PROC: 05HM33Z Insertion of Infusion Device into Right Internal Jugular Vein, Percutaneous Approach (ICD-10-PCS; 2025-04-22)
PROC: B5131ZA Fluoroscopy of Right Jugular Veins using Low Osmolar Contrast, Guidance (ICD-10-PCS; 2025-04-22)
PROC: 3E03329 Introduction of Other Anti-infective into Peripheral Vein, Percutaneous Approach (ICD-10-PCS; 2025-04-22)
PROC: 0T9B70Z Drainage of Bladder with Drainage Device, Via Natural or Artificial Opening (ICD-10-PCS; 2025-04-22)
PROC: 0DH67UZ Insertion of Feeding Device into Stomach, Via Natural or Artificial Opening (ICD-10-PCS; 2025-04-22)
PROC: 3E0G76Z Introduction of Nutritional Substance into Upper GI, Via Natural or Artificial Opening (ICD-10-PCS; 2025-04-22)
PROC: 5A1D70Z Performance of Urinary Filtration, Intermittent, Less than 6 Hours Per Day (ICD-10-PCS; 2025-04-22)
PROC: 5A09357 Assistance with Respiratory Ventilation, Less than 24 Consecutive Hours, Continuous Positive Airway Pressure (ICD-10-PCS; 2025-04-24)
DX: J69.0 Pneumonitis due to inhalation of food and vomit (principal); J96.01 Acute respiratory failure with hypoxia; N18.6 End stage renal disease; G93.41 Metabolic encephalopathy; J96.02 Acute respiratory failure with hypercapnia; R78.81 Bacteremia; M46.26 Osteomyelitis of vertebra, lumbar region; E87.1 Hypo-osmolality and hyponatremia; I13.0 Hypertensive heart and chronic kidney disease with heart failure and stage 1 through stage 4 chronic kidney disease, or unspecified chronic kidney disease; M86.171 Other acute osteomyelitis, right ankle and foot; S72.142K Displaced intertrochanteric fracture of left femur, subsequent encounter for closed fracture with nonunion; Z51.5 Encounter for palliative care; I25.10 Atherosclerotic heart disease of native coronary artery without angina pectoris; D63.1 Anemia in chronic kidney disease; E11.22 Type 2 diabetes mellitus with diabetic chronic kidney disease; F41.9 Anxiety disorder, unspecified; E87.70 Fluid overload, unspecified; E11.69 Type 2 diabetes mellitus with other specified complication; I50.9 Heart failure, unspecified; E11.51 Type 2 diabetes mellitus with diabetic peripheral angiopathy without gangrene; N28.89 Other specified disorders of kidney and ureter; E11.621 Type 2 diabetes mellitus with foot ulcer; L97.529 Non-pressure chronic ulcer of other part of left foot with unspecified severity; L97.519 Non-pressure chronic ulcer of other part of right foot with unspecified severity; L89.152 Pressure ulcer of sacral region, stage 2; L89.620 Pressure ulcer of left heel, unstageable; L89.610 Pressure ulcer of right heel, unstageable; E88.09 Other disorders of plasma-protein metabolism, not elsewhere classified; Z86.73 Personal history of transient ischemic attack (TIA), and cerebral infarction without residual deficits; Z99.2 Dependence on renal dialysis; Z95.5 Presence of coronary angioplasty implant and graft; Z98.890 Other specified postprocedural states; Z88.8 Allergy status to other drugs, medicaments and biological substances; Z88.1 Allergy status to other antibiotic agents; Z91.041 Radiographic dye allergy status; Z88.0 Allergy status to penicillin; Z91.013 Allergy to seafood; Z79.899 Other long term (current) drug therapy; Z79.82 Long term (current) use of aspirin; Z79.02 Long term (current) use of antithrombotics/antiplatelets; Z74.01 Bed confinement status; Z23 Encounter for immunization
CPT/HCPCS: 36415; 36416; 36600; 71045; 74176; 80048; 80053; 82306; 82805; 83605; 83735; 83970; 84100; 85025; 85610; 85730; 86141; 87040; 87070; 90935; 94002; 94003; 94660; 96374; 96375; 97139; G0257; J0360; J0692; J1171; J1644; J1953; J2250; J2270; J2272; J2405; J2470; J2550; J2704; J3010; J7999; P9047; Q0167; Q0169; Q5105